=== PATIENT | female | born 1980 | race Caucasian/White ===

== ENCOUNTER 2016-09-15 15:52 | Emergency (ER) | payer MEDICARE, MEDICAID ==
[~2016-09-15] VITALS: Ht 165.1 cm; Wt 127.0 kg
[~2016-09-15 15:52] MED LIST: ABILIFY2 MG PO; AMOXIL500 MG PO; BACTRIM DS 8001 TAB PO; BUSPAR10 MG PO; CIPRO 500MG TA500 MG PO; CORTISPORIN (GE10 M1 OT; DARVOCET-N 1001 EACH PO; FLEXERIL10 MG PO; HYDROCODONE1 TABLET PO; HYDROXYCHLOROQ200 MG PO; IBU-8800 MG PO; IBUPROFEN400 MG PO; KEFLEX 500MG.500 MG PO; LEXAPRO 10 MG T10 MG PO; LORTAB 5/500 501 TAB PO; MEDROL 4MG. DOSE4 MG PO; MOTRIN600 MG PO; NAPROSYN 500MG500 MG PO; NORCO 325 MG-101 TAB PO; PAXIL20 MG PO; PREDNISONE50 MG PO; RANITIDINE 7575 MG PO; SEPTRA DS 800 M1 TAB PO; TEGRETOL 200MG200 MG PO; TEGRETOL200 MG PO; TESSALON PERLE100 MG PO; VIBRAMYCIN 100100 MG PO; ZANAFLEX 2MG TAB2 MG PO; ZOLOFT100 MG PO
[2016-09-15] MEDS ORDERED: DEPAKOTE 500MG500 MG PO (16:03)
[2016-09-15] MEDS ORDERED: BUSPIRONE HCL15 MG PO (16:04)
[2016-09-15] MEDS ORDERED: ROBAXIN 500 MG500 MG PO (16:04)
[2016-09-15] MEDS ORDERED: TRAMADOL 50MG T50 MG PO (16:05)
[2016-09-15] MEDS ORDERED: TOPAMAX100 MG PO (16:05)
[2016-09-15] MEDS ORDERED: MIGRELIEF CAPL1 EACH PO (16:06)
--- NOTE | 2016-09-15 16:08 | Emergency Room Report ---
History of Present Illness Time Seen by [id number] Presenting Problem in Triage Pt arrived:Walked Presenting Problem:PT HAVING PAIN IN STOMACH ALOT OF CRAMPING, PT STATES SHE HAS HAD DIARRHEA FOR SEVERAL DAYS. PT DENIES ANY VOMITING. PT DIZZY AND HEADACHE. PT STATES SHE HASNT SLEPT WELL FOR SEVERAL DAYS, PT STATES SHE HAS BEEN ON LIQUIDS FOR THE LAST FEW DAYS. Onset of symptoms date/time:/ or onset unknown for:MEDICAL HX UNKNOWN Treatment Prior to Arrival: [employer] Provided by: Sepsis Risk Assessment: Temp: 98.2 B/P: 124/82 MAP: 96 Pulse: 103 Resp: 18 Recent fever? N Clinical Suspician of Infection? N Mental Status: 1 - Regular (Normal Baseline) Sepsis Risk:Low Sepsis Risk Have you (or family members/close friends) recently traveled outside the [place]? N If Yes, where/when: Have you had exposure to infectious disease within the past month? N TB? Other? Specify: Source patient, RN notes reviewed Exam Limitations no limitations Comment Stomach pain and cramping and diarrhea for several days. Has not been on any antibiotics and not running any fever but having a watery diarrhea. Complains of some dizziness and headaches but says she has not slept well for several days and has been taking in mostly liquids for the past few days as well. No UT symptoms. She is afebrile, mildly tachycardic with LQ=820 and mid abd tenderness but no rebound or guarding Cardiac Chest Pain Chest pain indicative of cardiac No ALLERGIES Coded Allergies: No Known Drug Allergies (07/24/15) Home Medications Reported Medications Divalproex Sodium (Depakote) 500 MG PO BID Buspirone Hcl 15 MG PO BID Methocarbamol (Robaxin 500MG) 500 MG PO TID Topiramate (Topamax) 50 MG PO BID Tramadol Hcl (Tramadol 50MG) 50 MG PO TID B2/Mag Cit & Ox/Feverfew (Migrelief Caplet) 1 EACH PO DAILY Tizanidine Hydrochloride (Zanaflex 2MG Tab) 2 MG PO TID HYDROCODONE/ACETAMINOPHEN ([place] 10-325 Tablet) 1 TAB PO TID Escitalopram Oxalate (Lexapro 10MG) 10 MG PO DAILY Aripiprazole (Abilify) 2 MG PO DAILY Cyclobenzaprine Hcl (Flexeril) 5 MG PO PRN PRN SPASMS History Medical History General CAD? No Angina: No [place]: No Hypertension? No Hyperlipidemia? No CHF? No DVT? No PE? No COPD? No Asthma? No Anemia? No GERD? Yes Gastric ulcers? No GI Bleed? No Hernia? No Thyroid Problems? No Hypothyroidism? No CVA? No Seizures? Yes Diabetes? No End Stage Renal Disease? No UTI? No Stones? Yes GB Disease: No Nephritic Syndrome? No Asplenia? No Hepatitis? No Sickle Cell Disease? No Arthritis? Yes Cataracts? No Glaucoma? No MRSA? No TB? No Cancer? No Immunization Hx DT/Tetanus 1-4 Years Ago Flu NEVER Pneumonia NEVER Surgical Hx Previous Surgery?Y KIDNEY REMOVED LEFT NEPHRECTOMY WEIGH BOSS Hx LMP 1 Month Ago Family History Family Hx Diabetes Yes CAD Yes Hypertension Yes Hyperlipidemia Yes Cancer No TB No Social History Smoking Hx Smoker: Current Every Day Smoker Tobacco: Yes Type Cigarettes Packs/day < 1 Pack Alcohol Alcohol: No Review of Systems All Other Systems Reviewed and Negative Constitutional see HPI Gastrointestinal see HPI Psychiatric/Neurological see HPI Physical Exam Vital Signs Vital Signs Date Time Temp Pulse Resp B/P Pulse O2 O2 Flow FiO2 Ox Delivery Rate 09/15 1842 97.9 88 18 110/72 96 09/15 1739 97.7 95 18 100/59 96 09/15 1655 99.1 91 18 94/44 96 09/15 1555 98.2 103 18 124/82 97 General Appearance no apparent distress, obese Respiratory Status No: respiratory distress. Lung Sounds bilateral: normal breath sounds. 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 No Results/Orders Laboratory Tests 09/15/16 1610: Urine Color YELLOW, Urine Appearance CLEAR, Urine pH 6.0, Ur Specific [place] 1.025, Urine Protein NEGATIVE, Urine Ketones NEGATIVE, Urine Blood NEGATIVE, Urine Nitrate NEGATIVE, Urine Bilirubin NEGATIVE, Urine Urobilinogen 1.0, Ur Leukocyte Esterase TRACE H, Urine WBC OCC, Ur Squamous Epith Cells OCC, Urine Bacteria TRACE, Urine Glucose NEGATIVE 09/15/16 1602: Sodium 138, Potassium 4.6, Chloride 104, Carbon Dioxide 25, BUN 15, Creatinine 0.9, Estimated Creat Clear 173, Estimated GFR (MDRD) 71, Glucose 98, Calcium 8.6 , Total Bilirubin 0.2, AST 8 L, ALT 18, Alkaline Phosphatase 146 H, Total Protein 7.7, Albumin 3.0 L, Globulin 4.7 H, Albumin/Globulin Ratio 0.6 L, Amylase 29, Lipase 114, WBC 11.7 H, RBC 4.60, Hgb 12.8, Hct 38.9, MCV 84.5, RDW 16.2, Plt Count 430 H, MPV 5.2 L, Gran % 58.6, Gran # 6.8, Lymphocytes % 31.5, Monocytes % 7.6, Eosinophils % 1.7, Basophils % 0.5, Lymphocytes # 3.7, Monocytes # 0.9, Eosinophils # 0.2, Basophils # 0.1, PUBS MCHC 32.6, MCH 27.6 Current Medication Orders Sig/Migue Start time Last Medication Dose Route Stop Time Status Admin Ondansetron HCl 4 MG ONCE ONE 09/15 1645 DC 09/15 IV 09/15 1646 1639 Sodium Chloride 1,000 ML .Q1H1M 09/15 1645 DC 09/15 IV 09/15 1745 1640 Sodium Chloride 10 ML PRN PRN 09/15 1645 AC IV 09/16 1635 Sodium Chloride 1,000 ML .Q4H 09/15 1645 AC 09/15 IV 09/15 2044 1640 Sodium Chloride 10 ML PRN PRN 09/15 1645 AC IV 09/16 1635 Sodium Chloride 2,000 ML .STK-MED ONE 09/15 1638 DC IV Ondansetron HCl 0 .STK-MED ONE 09/15 1637 DC .ROUTE Orders Procedure Date/time Status ABD ACUTE(MUL VIEWS) 09/15 1636 Active DIARRHEA PANEL, PCR 09/15 1636 Active URINALYSIS/COMPLETE 09/15 1608 Complete URINE 09/15 1608 Complete LIPASE 09/15 1608 Complete CBC WITH AUTO DIFF 09/15 1608 Complete CHEM 12 PROFILE 09/15 1608 Complete AMYLASE 09/15 1608 Complete XRAY/CT/US XRAY/CT/US XRAY abdomen XR interpretation by reviewed by me Xray Results normal/NAD Departure Departure Time of Disposition 1902 Disposition DC Home or Self Care(routine) Clinical Impression Primary Impression: Diarrhea Qualifiers: Diarrhea type: unspecified type Qualified Code: R19.7 - Diarrhea, unspecified Condition STABLE Referrals ANDREI WARREN (Family): 2 Days-Call Office Patient Instructions Diarrhea (Alternative Therapy), Diarrhea (Alternative Therapy), Loperamide Additional Instructions use medicine as directed and stay on clear liquids only for next couple of days. Return to the ED with any worsening symptoms. Discharge Counseling Counseled pt/family regarding diagnosis, test results, medications/RX, home care, follow up needs Prescriptions Current Visit Scripts Loperamide HCl (Imodium A-D) 2 MG PO DIRECTED #40 CAPSULE take 2 pills after next BM and 1 after each unformed BM but no more than 6 in 1 day ED Critical Care Critical Care No If Critical Care minutes are documented, the time involved in the performance of seperately reportable procedures was not counted toward critical care time documented. I directly delivered medical care to this critically ill and/or injured patient. Timely evaluation and treatment was necessary to address the significant organ system(s) dysfunction present in this patient. at 1904
--- NOTE | 2016-09-15 16:08 | Emergency Room Report ---
History of Present Illness Time Seen by [id number] Presenting Problem in Triage Pt arrived:Walked Presenting Problem:PT HAVING PAIN IN STOMACH ALOT OF CRAMPING, PT STATES SHE HAS HAD DIARRHEA FOR SEVERAL DAYS. PT DENIES ANY VOMITING. PT DIZZY AND HEADACHE. PT STATES SHE HASNT SLEPT WELL FOR SEVERAL DAYS, PT STATES SHE HAS BEEN ON LIQUIDS FOR THE LAST FEW DAYS. Onset of symptoms date/time:/ or onset unknown for:MEDICAL HX UNKNOWN Treatment Prior to Arrival: [employer] Provided by: Sepsis Risk Assessment: Temp: 98.2 B/P: 124/82 MAP: 96 Pulse: 103 Resp: 18 Recent fever? N Clinical Suspician of Infection? N Mental Status: 1 - Regular (Normal Baseline) Sepsis Risk:Low Sepsis Risk Have you (or family members/close friends) recently traveled outside the [place]? N If Yes, where/when: Have you had exposure to infectious disease within the past month? N TB? Other? Specify: Source patient, RN notes reviewed Exam Limitations no limitations Comment Stomach pain and cramping and diarrhea for several days. Has not been on any antibiotics and not running any fever but having a watery diarrhea. Complains of some dizziness and headaches but says she has not slept well for several days and has been taking in mostly liquids for the past few days as well. No UT symptoms. She is afebrile, mildly tachycardic with EO=458 and mid abd tenderness but no rebound or guarding Cardiac Chest Pain Chest pain indicative of cardiac No ALLERGIES Coded Allergies: No Known Drug Allergies (07/24/15) Home Medications Reported Medications Divalproex Sodium (Depakote) 500 MG PO BID Buspirone Hcl 15 MG PO BID Methocarbamol (Robaxin 500MG) 500 MG PO TID Topiramate (Topamax) 50 MG PO BID Tramadol Hcl (Tramadol 50MG) 50 MG PO TID B2/Mag Cit & Ox/Feverfew (Migrelief Caplet) 1 EACH PO DAILY Tizanidine Hydrochloride (Zanaflex 2MG Tab) 2 MG PO TID HYDROCODONE/ACETAMINOPHEN ([place] 10-325 Tablet) 1 TAB PO TID Escitalopram Oxalate (Lexapro 10MG) 10 MG PO DAILY Aripiprazole (Abilify) 2 MG PO DAILY Cyclobenzaprine Hcl (Flexeril) 5 MG PO PRN PRN SPASMS History Medical History General CAD? No Angina: No [place]: No Hypertension? No Hyperlipidemia? No CHF? No DVT? No PE? No COPD? No Asthma? No Anemia? No GERD? Yes Gastric ulcers? No GI Bleed? No Hernia? No Thyroid Problems? No Hypothyroidism? No CVA? No Seizures? Yes Diabetes? No End Stage Renal Disease? No UTI? No Stones? Yes GB Disease: No Nephritic Syndrome? No Asplenia? No Hepatitis? No Sickle Cell Disease? No Arthritis? Yes Cataracts? No Glaucoma? No MRSA? No TB? No Cancer? 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 Family History Family Hx Diabetes Yes CAD Yes Hypertension Yes Hyperlipidemia Yes Cancer No TB No Social History Smoking Hx Smoker: Current Every Day Smoker Tobacco: Yes Type Cigarettes Packs/day < 1 Pack Alcohol Alcohol: No Review of Systems All Other Systems Reviewed and Negative Constitutional see HPI Gastrointestinal see HPI Psychiatric/Neurological see HPI Physical Exam Vital Signs Vital Signs Date Time Temp Pulse Resp B/P Pulse O2 O2 Flow FiO2 Ox Delivery Rate 09/15 1842 97.9 88 18 110/72 96 09/15 1739 97.7 95 18 100/59 96 09/15 1655 99.1 91 18 94/44 96 09/15 1555 98.2 103 18 124/82 97 General Appearance no apparent distress, obese Respiratory Status No: respiratory distress. Lung Sounds bilateral: normal breath sounds. 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 No Results/Orders Laboratory Tests 09/15/16 1610: Urine Color YELLOW, Urine Appearance CLEAR, Urine pH 6.0, Ur Specific [place] 1.025, Urine Protein NEGATIVE, Urine Ketones NEGATIVE, Urine Blood NEGATIVE, Urine Nitrate NEGATIVE, Urine Bilirubin NEGATIVE, Urine Urobilinogen 1.0, Ur Leukocyte Esterase TRACE H, Urine WBC OCC, Ur Squamous Epith Cells OCC, Urine Bacteria TRACE, Urine Glucose NEGATIVE 09/15/16 1602: Sodium 138, Potassium 4.6, Chloride 104, Carbon Dioxide 25, BUN 15, Creatinine 0.9, Estimated Creat Clear 173, Estimated GFR (MDRD) 71, Glucose 98, Calcium 8.6 , Total Bilirubin 0.2, AST 8 L, ALT 18, Alkaline Phosphatase 146 H, Total Protein 7.7, Albumin 3.0 L, Globulin 4.7 H, Albumin/Globulin Ratio 0.6 L, Amylase 29, Lipase 114, WBC 11.7 H, RBC 4.60, Hgb 12.8, Hct 38.9, MCV 84.5, RDW 16.2, Plt Count 430 H, MPV 5.2 L, Gran % 58.6, Gran # 6.8, Lymphocytes % 31.5, Monocytes % 7.6, Eosinophils % 1.7, Basophils % 0.5, Lymphocytes # 3.7, Monocytes # 0.9, Eosinophils # 0.2, Basophils # 0.1, PUBS MCHC 32.6, MCH 27.6 Current Medication Orders Sig/Migue Start time Last Medication Dose Route Stop Time Status Admin Ondansetron HCl 4 MG ONCE ONE 09/15 1645 DC 09/15 IV 09/15 1646 1639 Sodium Chloride 1,000 ML .Q1H1M 09/15 1645 DC 09/15 IV 09/15 1745 1640 Sodium Chloride 10 ML PRN PRN 09/15 1645 AC IV 09/16 1635 Sodium Chloride 1,000 ML .Q4H 09/15 1645 AC 09/15 IV 09/15 2044 1640 Sodium Chloride 10 ML PRN PRN 09/15 1645 AC IV 09/16 1635 Sodium Chloride 2,000 ML .STK-MED ONE 09/15 1638 DC IV Ondansetron HCl 0 .STK-MED ONE 09/15 1637 DC .ROUTE Orders Procedure Date/time Status ABD ACUTE(MUL VIEWS) 09/15 1636 Active DIARRHEA PANEL, PCR 09/15 1636 Active URINALYSIS/COMPLETE 09/15 1608 Complete URINE 09/15 1608 Complete LIPASE 09/15 1608 Complete CBC WITH AUTO DIFF 09/15 1608 Complete CHEM 12 PROFILE 09/15 1608 Complete AMYLASE 09/15 1608 Complete XRAY/CT/US XRAY/CT/US XRAY abdomen XR interpretation by reviewed by me Xray Results normal/NAD Departure Departure Time of Disposition 1902 Disposition DC Home or Self Care(routine) Clinical Impression Primary Impression: Diarrhea Qualifiers: Diarrhea type: unspecified type Qualified Code: R19.7 - Diarrhea, unspecified Condition STABLE Referrals ANDREI WARREN (Family): 2 Days-Call Office Patient Instructions Diarrhea (Alternative Therapy), Diarrhea (Alternative Therapy), Loperamide Additional Instructions use medicine as directed and stay on clear liquids only for next couple of days. Return to the ED with any worsening symptoms. Discharge Counseling Counseled pt/family regarding diagnosis, test results, medications/RX, home care, follow up needs Prescriptions Current Visit Scripts Loperamide HCl (Imodium A-D) 2 MG PO DIRECTED #40 CAPSULE take 2 pills after next BM and 1 after each unformed BM but no more than 6 in 1 day ED Critical Care Critical Care No If Critical Care minutes are documented, the time involved in the performance of seperately reportable procedures was not counted toward critical care time documented. I directly delivered medical care to this critically ill and/or injured patient. Timely evaluation and treatment was necessary to address the significant organ system(s) dysfunction present in this patient. at 1904
[2016-09-15 16:19] LABS: URINE BILIRUBIN - DIPSTICK NEGATIVE (NEG); URINE BLOOD NEGATIVE (NEG)
[2016-09-15 16:20] LABS: HEMOGLOBIN 12.8 g/dL (12.2-16.2); LYMPH # 3.7 K/mm3 (0.7-4.5); LYMPH % 31.5 % (10-50.0)
[2016-09-15 16:26] LABS: URINE SQUAMOUS CELLS OCC #/hpf (0-5)
[2016-09-15] MEDS ORDERED: IMODIUM A-D2 M3 PO (19:04)
[2016-09-15 19:05] VITALS: BP 110/72
--- NOTE | 2016-09-16 05:56 | RADIOLOGY REPORT PS360 ---
ABD ACUTE(MUL VIEWS) HISTORY: abdominal pain ORDERING PHYSICIAN: Edilberto Kent MD PATIENT AGE: 35 years COMPARISON: None FINDINGS: Frontal view of the chest shows atelectatic or fibrotic changes in the left lung base. There is mild hyperinflation with attenuation of peripheral pulmonary vessels and coarsening of the bronchovascular markings consistent with smoker's lung disease. Upright and supine views of the abdomen show nonspecific bowel gas. No obstruction or free air. Surgical clip is present in the left lower quadrant. No acute bony anomalies or urolithiasis. IMPRESSION: 1. Left lower lobe atelectasis or fibrosis with peribronchial inflammatory change in hyperinflation. 2. Nonspecific nonacute findings of the abdomen
--- OUTSIDE RECORDS SUMMARY | 2016-09-16 06:55 | External Medical Summary Rpt ---
Author Author , Organization [employer] Address Unknown Phone Unavailable Care Team Providers Care Au Pair Name Role Phone NABIL KAUR MD, PSC, Unavailable Unavailable NABIL KAUR MD, PSC ATKINS TRA, ATKINS Unavailable Unavailable TRA ATKINS TRA, ATKINS Unavailable Unavailable TRA NAMITA KRI, Unavailable Unavailable NAMITA KRI BRACKEN MEAGAN, BRACKEN Unavailable Unavailable MEAGAN SARA III SHALA, Unavailable Unavailable SARA III SHALA ROBERT, ROBERT Unavailable Unavailable ROBERT, ROBERT Unavailable Unavailable WARREN, WARREN Unavailable Unavailable WARREN NATASHA, WARREN NATASHA Unavailable Unavailable WARREN NATASHA, WARREN NATASHA Unavailable Unavailable BUX ANJ, BUX ANJ Unavailable Unavailable EDIL DAYAN, EDIL Unavailable Unavailable DAYAN [facility], Unavailable Unavailable [facility] [place] [facility], Unavailable Unavailable [facility] MARCE BENNY, Unavailable Unavailable MARCE BENNY DOERGER KIR, DOERGER Unavailable Unavailable KIR DUFF MEAGAN, DUFF MEAGAN Unavailable Unavailable [facility] [place] [facility] [place] EBACHER MAT, EBACHER Unavailable Unavailable MAT JENSEN THO, Unavailable Unavailable JENSEN THO BLACKMON NALLELY, Unavailable Unavailable BLACKMON NALLELY [facility], Unavailable Unavailable [facility], Unavailable Unavailable [facility] DARLING NOVOA Unavailable Unavailable DARLING MENESES Unavailable Unavailable EUGENIA GAUTHIER ANA, GAUTHIER Unavailable Unavailable ANA [facility] Un[facility], [facility] HOBLITZEL DANYELLE, Unavailable Unavailable HOBLITZEL DANYELLE [facility] Unavailable Unavailable [facility], [facility] Unavailable Unavailable IMAGING [facility], [facility] ELISEO CRI, ELISEO CRI Unavailable Unavailable MADKASIA KAUR MD, CLARI Unavailable Unavailable BUX MD DAIGLE, DAIGLE Unavailable Unavailable ELLIOTT BYR, ELLIOTT BYR Unavailable Unavailable JAI RON, JAI Unavailable Unavailable [facility] Unavailable [facility]available [facility], [facility] Unavailable Unavailable [facility], [facility] Unavailable Unavailable OF [facility], [facility] RISON ALL, RISON ALL Unavailable Unavailable SALIM DAINA, SALIM DAINA Unavailable Unavailable [facility], Unavailable Unavailable [facility], Unavailable Unavailable [facility] Unavailable Unavailable PHYSICI[facility], [facility] [place] [facility], Unavailable Unavailable [facility] Unavailable Unavailable DEPT MICHELLE, [facility] MICHELLE WEHRMAN III DAYAN, Unavailable Unavailable WEHRMAN III DAYAN WEHRMAN III DAYAN, Unavailable Unavailable WEHRMAN III DAYAN WILLOBY, WILLOBY Unavailable Unavailable WILLOBY NALLELY, WILLOBY Unavailable Unavailable NALLELY Purpose Continuity of Care Document - 04-04-2009 through 2016 Problems Code Diagnosis DOS Provider Status [id number] EPILEPSY 08-01-2016 . [facility] NOT [facility] INTRACT W/O EULA STATUS EPILEPTICUS H539 UNSPECIFIED 08-01-2016 [facility] VISUAL G[facility] DISTURBANCE EULA R51 HEADACHE 08-01-2016 . [facility] EULA R5383 OTHER 07-25-2016 [facility] [id number] OTH 07-09-2016 [facility] NOT INTRACT PHYSICIANS W/O STATUS MIGRAINOSUS M542 CERVICALGIA 07-09-2016 [facility] R110 NAUSEA 07-04-2016 [facility] R71290 EPISODIC 06-24-2016 TENSION-TYP [facility] E HEADACHE PHYSICIANS NOT INTRACTABLE L570 ACTINIC 03-19-2016 ROBERT KERATOSIS L732 HIDRADENITI 03-19-2016 ROBERT S SUPPURATIVA L930 DISCOID 03-19-2016 ROBERT LUPUS ERYTHEMATOS US Z202 CONTACT 02-08-2016 [facility] WITH DISTRICT EXPOSURE [facility] DEPT INFECT MICHELLE SEXUAL MODE TRANSMS [id number] SPONDYLOSIS 09-19-2015 NABIL KAUR, W/O , PSC MYELOPATH/R ADICULOPATH Y LUMB RGN M5116 INTERVERTEB 09-19-2015 YOLANDA LYON MD, PSC D/O W/RADICULOP ATHY LUMB RGN X66897 OTHER LONG 09-19-2015 [facility] CURRENT INC DRUG THERAPY H02504 OTHER 08-03-2015 [facility] PSC TENOSYNOVIT IS RIGHT SHOULDER M461 SACROILIITI 07-24-2015 Jaspal LYON MD, PSC ELSEWHERE CLASSIFIED M545 LOW BACK 07-24-2015 [facility]IN [facility] M791 MYALGIA 07-24-2015 NABIL KAUR MD, PSC M7581 OTHER 07-12-2015 [facility]ES[facility] SHOULDER E44666 PAIN IN 06-14-2015 ST. RIGHT [facility] SHOULDER EULA [id number] UNS INJURY 06-02-2015 ST. 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 7244 THORACIC/ASHLEY 10-24-2014 CLARI MAROSARONI BETTENCOURT NEURITIS/RA DICULITIS UNSPEC 77141 DISPLCMT 07-26-2014 HARMEET Morrison LUMBAR [place] INTERVERT [facility] DISC W/O MYELOPATHY 7213 LUMBOSACRAL 06-27-2014 HARMEET HASTINGS SPONDYLOSIS [facility] WITHOUT MYELOPATHY 68205 MORBID 04-19-2014 HARMEET HASTINGS [facility] V5869 LONG-TERM 04-19-2014 HARMEET Morrison (CURRENT) HASTINGS USE OF [facility] OTHER MEDICATIONS 7238 OTHER 01-21-2014 HARMEET SHETTY [facility]STINGS AFFECTING [facility] CERVICAL REGION 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 OF HAND [facility] EULA 65095 CONTUSION 11-14-2011 ST. OF WRIST [facility] E[facility] 62670 BLISTR 11-14-2011 ST W/EPID LOSS [facility] CTR UNSPEC SITE HAND 09648 BLISTERS 11-14-2011 ST. W/EPIDERMAL [facility] LOSS DUE EULA TO BURN EKG MONITOR TECH 98645 BURN <10% 11-14-2011 ST. BODY SURF [facility] W/3RD DEG EULA BURN<10%/UN S AMT 9492 BLISTERS 11-14-2011 ST W/EPIDERMAL [facility] LOSS DUE MED CTR BURN UNSPEC SITE 9599 INJURY 11-14-2011 RAD[facility]OLOGY OTHER AND ASSOCIATES UNSPECIFIED OF NOTH UNSPECIFIED SITE V065 NEED 11-14-2011 ST. PROPHYLACTI [facility] C EULA VACCINATION W/TETANUS-D [facility] 5990 URINARY 11-01-2011 WILLOBY NALLELY TRACT INFECTION SITE NOT SPECIFIED 6235 LEUKORRHEA 11-01-2011 WILLOBY NALLELY NOT SPECIFIED INFECTIVE 85286 SPONDYLOSIS 11-01-2011 WILLOBY NALLELY UNSPEC SITE W/O MENTION MYELOPATHY 496 CHRONIC 09-05-2011 WILLOBY NALLELY AIRWAY OBSTRUCTION NEC 49940 PAIN IN 07-16-2011 ST. JOINT, [facility] LOWER LEG EULA 7245 UNSPECIFIED 06-19-2011 BRIANA KAUR BACKACHE 9597 INJURY 06-19-2011 BRIANA KAUR OTHER&UNSPE CIFIED KNEE LEG ANKLE&FOOT 30762 CONTUSION 06-15-2011 ST OF KNEE [facility] 7231 CERVICALGIA 05-30-2011 WARREN NATASHA 9154 FINGER 05-30-2011 BRIANA KAUR INSECT BITE NONVENOMOUS W/O MENTION INF 4739 UNSPECIFIED 04-22-2011 WILLOBY NALLELY SINUSITIS 490 BRONCHITIS 04-22-2011 WILLOBY NALLELY NOT SPECIFIED ACUTE OR CHRONIC 52278 CHRON 03-21-2011 [facility] TIS W/O LES INC RENL MEDULRY NECROS 78640 ACUT 03-21-2011 [facility] TIS W/O LES INC RENAL MEDULRY NECROS 54177 UNSPECIFIED 03-21-2011 [facility] TIS 5849 ACUTE 04-10-2010 [facility] FAILURE UNSPECIFIED 7880 RENAL COLIC 01-06-2010 [facility] 7840 HEADACHE 12-06-2009 [facility] 7804 DIZZINESS 09-30-2009 [facility] 48119 UNSPECIFIED 08-24-2009 [facility]ICAL ANKLE [facility] SPRAIN AND STRAIN 9239 CONTUSION 04-11-2009 [facility] UNSPECIFIED IMAGING ASS PART OF UPPER LIMB 9593 INJURY 04-04-2009 [facility] [place] OTHER&UNSPE RADIOLOGY CIFIED [facility]&WRI ST Allergies, Adverse Reactions, Alerts Type Allergy to substance Adverse Reaction to Substance Substance Reaction Severity INGREDIENT: NO KNOWN Unknown Mild - NO KNOWN DRUG ALLERGY Medications Na ND Rx Da Fi Fi Am Da Di Ph RX Ph St me C No te ll ll ou ys ag ar # ys at rm s nt no ma ic us Or Da si cy ia de te s n re d EN 60 09 10 0 12 3 EA 24 RU Ac DO 95 -3 -[address] 33 SH ti CE 10 0- 3- 00 SI 99 ve T 70 20 20 DE NE 7. 07 11 11 IL 5- 0 PH C 32 AR 5 MA MG CY TA OF BL ET CY NT HI AN A EN 60 09 09 0 18 5 EA 24 RU Ac DO 95 -2 -[address] 28 SH ti CE 10 8- 8 SI 79 ve T 70 20 20 DE NE 7. 07 11 11 IL 5- 0 PH C 32 AR 5 MA MG CY TA OF BL ET CY NT HI AN A AM 00 09 09 0 30 10 EA 24 RU Ac OX 78 -2 -[address] 28 SH ti IC 12 8- 8 SI 80 ve IL 61 20 20 DE NE LI 30 11 11 IL N 5 PH C 50 AR 0 MA MG CY CA OF PS UL CY E NT HI AN A Immunization Name Date Route CVX Reacti Commen Provid Is Given on t er Refuse d SAMMIU [facility] S & 2011 ELIZAB DIPHTH ETH ERIA EULA TOXOID S ADSORB ED 7/>YR IM Vital Signs 03-22-2013 13:42 Name Value Interpretat Reference Comment ion Range BP 75 mm[Hg] Diastolic BP Systolic 99 mm[Hg] Heart 86 /min Rate/Pulse O2% 99 % Respiratory 20 /min Rate 03-22-2013 13:14 Name Value Interpretat Reference Comment ion Range BP 76 mm[Hg] Diastolic BP Systolic 116 mm[Hg] Heart 83 /min Rate/Pulse O2% 98 % Respiratory 20 /min Rate Results Labs Lab Lab Date Result Refere Interp Status Commen Order Detail nces retati t Range on CHLAMYDIA AND GONORRHEA TESTING (02-08-2016 15:00) Chlamyd NEGATIV complet ia 016 E ed trachom 15:00 atis rRNA [Presen ce] in Unspeci fied specime n by Probe & target amplifi cation method Neisser NEGATIV complet ia 016 E ed gonorrh 15:00 oeae rRNA [Presen ce] in Unspeci fied specime n by Probe & target amplifi cation method Treponema pallidum IgG Ab [Presence] in Serum by Immunoassay (02-08-2016 15:00) Trepone NON-RONNI complet ma 016 CTIVE ed pallidu 15:00 m IgG Ab [Presen ce] in Serum by Immunoa ssay Treponema pallidum IgG Ab [Presence] in Serum by Immunoassay (02-08-2016 15:00) COLLECT AH complet OR 016 ed 15:00 ETHNICI WHITE/N complet TY 016 ON-HISP ed 15:00 PURPOSE DIAGNOS complet OF 016 TIC ed EXAM 15:00 SPECIME BLOOD complet N 016 ed SOURCE 15:00 CHART N/A complet NUMBER 016 ed 15:00 Trepone Pending complet ma 016 ed pallidu 15:00 m IgG Ab [Presen ce] in Serum by Immunoa ssay CHLAMYDIA AND GONORRHEA TESTING (02-08-2016 15:00) COLLECT AH/GENP complet OR 016 ROBE ed 15:00 ETHNICI WHITE, complet TY 016 NON-HIS ed 15:00 PANIC KIT complet EXPIRAT 016 016 ed ION 15:00 DATE SYMPTOM NO complet S 016 ed 15:00 REASON VOLUNTE complet FOR 016 ER/MEDI ed REQUEST 15:00 BERNARDA PROBLEM SPECIME URINE complet N 016 ed SOURCE 15:00 PREGNAN NO complet T 016 ed 15:00 CHART N/A complet NUMBER 016 ed 15:00 Chlamyd Pending complet ia 016 ed trachom 15:00 atis rRNA [Presen ce] in Unspeci fied specime n by Probe & target amplifi cation method Neisser Pending complet ia 016 ed gonorrh 15:00 oeae rRNA [Presen ce] in Unspeci fied specime n by Probe & target amplifi cation method Procedures Procedure DOS Code Location Performer Comment INJ A[address] [facility] GADOBENAT 7 [facility] E EULA EULA DIMEGLUMI NE MULTIHANC E PER ML MRI BRAIN [address] [facility] BRAIN 7 [facility] STEM W/O EULA EULA W/[place] [address] [facility] HEAD/BRAI 7 [facility] N W/O EULA EULA CONTRAST MATERIAL RADEX [address] [facility] SPINE 7 [facility] CERVICAL EULA EULA 4 OR 5 VIEWS THERAPEUT 49747 DAIGLE IC 7 [facility] PROPHYLAC TIC/DX PHYSICIAN INJECTION S SUBQ/IM DESTRUCTI 78491 YESICA ROBERT ON 6 PREMALIGN ANT LESION 1ST SYPHILIS 77500 [facility] DAINA TEST 6 DISTRICT NON-TREPO [facility] DEPT NEMAL MICHELLE ANTIBODY QUAL IADNA 78265 [facility] DAINA NEISSERIA 6 DISTRICT [facility] DEPT GONORRHOE MICHELLE AE AMPLIFIED PROBE TQ IADNA 71135 [facility] CRAIG DAINA CHLAMYDIA 6 [facility] DEPT TRACHOMAT MICHELLE IS AMPLIFIED [facility] G0463 [facility] OUTPATIEN 6 [facility] T CLIN INC INC VISIT ASSESS & MGMT PT DRUG TST G0477 [facility] PRESUMP;C 6 [facility] PBL BEING INC INC READ DC OPT OBV ONLY DRUG TEST G0481 [facility] DEFINITV [address] ID INC INC METH P DAY 8-14 DRUG CL E-STIM G0283 PROFESSIO CROSSFIEL 1/> AREAS 6 [facility] D [facility]O OTH THAN ASSOC WND CARE PSC PART TX PLAN THERAPEUT 86473 PROFESSIO CROSSFIEL IC PX 1/> 6 [facility] AREAS ASSOC EACH 15 PSC MIN EXERCISES THERAPEUT 77643 PROF[facility] CROSSFIEL IC PX 1/> 6 [facility]OC EACH 15 PSC MIN EXERCISES E-STIM G0283 PROFESSIO CROSSFIEL 1/> AREAS 6 [facility] D [facility] OTH THAN ASSOC WND CARE PSC PART TX PLAN E-STIM G0283 PROFESSIO CROSSFIEL 1/> AREAS 6 NAL REHAB D POLO OTH THAN ASSOC WND CARE PSC PART TX PLAN THERAPEUT 59746 PROFESSIO CROSSFIEL IC PX 1/> 6 [facility] D POLO AREAS ASSOC EACH 15 PSC MIN EXERCISES THERAPEUT 57050 PROFESSIO CROSSFIEL IC PX 1/> 6 [facility] AREAS ASSOC EACH 15 PSC MIN EXERCISES E-STIM G0283 PROFESSIO CROSSFIEL 1/> AREAS 6 [facility] D POLO OTH THAN ASSOC WND CARE PSC PART TX PLAN E-STIM G0283 PROFESSIO PROFESSIO 1/> AREAS 6 NAL REHAB NAL REHAB OTH THAN ASSOC ASSOC WND CARE PSC PSC PART TX PLAN THERAPEUT 44918 PROFESSIO PROFESSIO IC PX 1/> 6 NAL RE[facility]AB NAL REHAB AREAS ASSOC ASSOC EACH 15 PSC PSC MIN EXERCISES THERAPEUT 62912 PROFESSIO CROSSFIEL IC PX 1/> 6 [facility] D POLO AREAS ASSOC EACH 15 PSC MIN EXERCISES E-STIM G0283 PROFESSIO CROSSFIEL 1/> AREAS 6 [facility] D POLO OTH THAN ASSOC WND CARE PSC PART TX PLAN HOSPITAL G0463 [facility] OUTPATI[facility] 6 [facility] T CLIN INC INC VISIT ASSESS & MGMT PT THERAPEUT 44504 PROFESSIO CROSSFIEL IC PX 1/> 6 [facility] D POLO AREAS ASSOC EACH 15 PSC MIN EXERCISES E-STIM G0283 PROFESSIO CROSSFIEL 1/> AREAS 6 NAL REHAB D POLO OTH THAN ASSOC WND CARE PSC PART TX PLAN THERAPEUT 10064 PROFESSIO CROSSFIEL IC PX 1/> 6 [facility] D POLO AREAS ASSOC EACH 15 PSC MIN EXERCISES E-STIM G0283 PROFESSIO CROSSFIEL 1/> AREAS 6 NAL REHAB D POLO OTH THAN ASSOC WND CARE PSC PART TX PLAN E-STIM G0283 PROFESSIO CROSSFIEL 1/> AREAS 6 NAL REHAB D POLO OTH THAN ASSOC WND CARE PSC PART TX PLAN THERAPEUT 70555 PROFESSIO CROSSFIEL IC PX 1/> 6 NAL REHAB D POLO AREAS ASSOC EACH 15 PSC MIN EXERCISES THERAPEUT 21212 PROFESSIO CROSSFIEL IC PX 1/> 6 [facility]HAB D POLO AREAS ASSOC EACH 15 PSC MIN EXERCISES E-STIM G0283 PROFESSIO CROSSFIEL 1/> AREAS 6 NAL REHAB D POLO OTH THAN ASSOC WND CARE PSC PART TX PLAN E-STIM G0283 PROFESSIO CROSSFIEL 1/> AREAS 6 NAL REHAB D POLO OTH THAN ASSOC WND CARE PSC PART TX PLAN THERAPEUT 24286 PROFESSIO CROSSFIEL IC PX 1/> 6 [facility]AB D POLO AREAS ASSOC EACH 15 PSC MIN EXERCISES THERAPEUT 73465 PROFESSIO CROSSFIEL IC PX 1/> 6 [facility] REHAB D POLO AREAS ASSOC EACH 15 PSC MIN EXERCISES E-STIM G0283 PROFESSIO CROSSFIEL 1/> AREAS 6 NAL REHAB D POLO OTH THAN ASSOC WND CARE PSC PART TX PLAN E-STIM G0283 PROFESSIO CROSSFIEL 1/> AREAS 6 NAL REHAB D POLO OTH THAN ASSOC WND CARE PSC PART TX PLAN THERAPEUT 40131 PROFESSIO PROFESSIO IC PX 1/> 6 NAL REHAB NAL REHAB AREAS ASSOC ASSOC EACH 15 PSC PSC MIN EXERCISES THERAPEUT 22258 PROFESSIO CROSSFIEL IC PX 1/> 6 [facility] REHAB D POL[facility] AREAS ASSOC EACH 15 PSC MIN EXERCISES PHYSICAL 57180 PROFESSIO CROSSFIEL THERAPY 6 NAL REHAB D POLO EVALUATIO ASSOC N PSC E-STIM G0283 PROFESSIO CROSSFIEL 1/> AREAS 6 [facility]AL REHAB D POLO OTH THAN ASSOC WND CARE PSC PART TX PLAN RADEX [address] SHOULDER 6 [facility] COMPLETE EULA EULA MINIMUM 2 V[place] [address] JT UPPER 6 [facility] EXTREMITY EULA EULA W/O CONTRAST F F [facility] G0463 [facility] OUTPATIEN 6 [facility] T CLIN INC INC VISIT ASSESS & [place] NJX 27773 NABIL ASIF MEAGAN DX/THER 5 MD NATASHA, SBST PSC EPIDURAL/ SUBARACH LUMBAR/SA CRAL LOC Q9966 [facility] 200-299 5 [facility] MG/ML INC INC IODINE [place] IN[place] [address] CLARI KAUR BUX ANJ JOINT 5 ARTHRGRPH Y&/ANES/S TEROID W/DICK DRUG SCR G0434 HARME[facility] GA NOT 4 Prince [facility] CHROMATOG MDPLC MDPLC RAPHIC; ANY NUMBER PT ENC DRUG SCR G0434 HARMEET EBACHER NOT 4 Prince YUEN CHROMATOG MDPLC RAPHIC; ANY NUMBER PT ENC EXCISION 83751 [facility] MALIGNANT 4 TRA TRA LESION F/E/E/N/L 2.1-3.0 CM DRUG SCR G0434 DARLING HASTINGS NOT 4 EUGENIA EUGENIA CHROMATOG RAPHIC; ANY NUMBER PT ENC MRI UPPER 56302 [facility] 3 [facility] EXTREMITY INC INC OTH THAN JT W/O CONTR MATRL RADEX [address] HAND 3 [facility] 3 EULA EULA VIEWS DISKOGRAP 40602 [facility]ST[facility] Y LUMBAR 2 EUGENIA EUGENIA RS&I LOCM Q9967 [facility] 300-399 2 EUGENIA EUGENIA MG/ML IODINE CONCENTRA TION PER ML MODERATE 59309 [facility] SEDATJ 2 EUGENIA EUGENIA SAME PHYS/QHP 5/>YRS INIT 30 MIN RINGERS J7120 [facility]STINGS LACTATE 2 EUGENIA EUGENIA INFUSION UP TO 1000 CC RINGERS J7120 DARLIGN HASTINGS LACTATE 2 EUGENIA EUGENIA INFUSION UP TO 1000 CC MODERATE 18010 [facility] HAST[facility] SEDATJ 2 EUGENIA EUGENIA SAME PHYS/QHP 5/>YRS INIT 30 MIN LOCM Q9967 D[facility] HASTINGS 300-399 2 EUGENIA EUGENIA MG/ML IODINE CONCENTRA TION PER ML DISKOGRAP 06531 [facility]STINGS Y LUMBAR 2 EUGENIA EUGENIA RS&I INJECTION 70428 [facility] PX 2 EUGENIA UEGENIA DISCOGRAP HY EACH LEVEL LUMBAR LOCM Q9967 [facility] HASTINGS 300-399 2 EUGENIA EUGENIA MG/ML IODINE CONCENTRA TION PER ML MODERATE 47010 [facility]ST[facility] SEDATJ 2 EUGENIA EUGENIA SAME PHYS/QHP 5/>YRS INIT 30 MIN NJX 52566 [facility] HASTINGS ANES&/STR 2 EUGENIA EUGENIA D W/IMG TFRML EDRL LMBR/SAC EA LV INJ J0702 [facility] BETAMETHA 2 EUGENIA EUGENIA SONE ACETATE & PHOSPHATE 3 MG INJECTION J3470 [facility] 2 EUGENIA EUGENIA HYALURONI DASE UP TO 150 UNITS RINGERS J7120 [facility] LACTATE 2 EUGENIA EUGENIA INFUSION UP TO 1000 CC INJECTION J1030 [facility] 2 EUGENIA EUGENIA METHYLPRE DNISOLONE ACETATE 40 MG NJX 43735 [facility] HATSINGS ANES&/STR 2 EUGENIA EUGENIA D W/IMG TFRML EDRL LMBR/SAC EA LV TETANUS & [address] [facility] 2 [facility] DIPHTHERI EULA EULA A TOXOIDS ADSORBED 7/>YR IM RADEX 02616 [facility] E[facility]IOTT [facility] HAND 2 MINIMUM 3 ASSOCIATE VIEWS S OF NOTH RADEX 32705 [facility] E[facility]OTT [facility] WRIST 2 COMPLETE ASSOCIATE MINIMUM 3 S OF NOTH VIEWS IM ADM [address] [facility] PRQ ID 2 [facility] SUBQ/IM EULA EULA NJXS 1 VACCINE FLUOR 31822 [facility] RADIOLOGY NEEDLE/CA 2 TH ASSOCIATE ASSOCIATE SPINE/PAR S OF NOTH S OF NOTH ASPINAL DX/THER ADDON INJ J0702 [facility] DOERGER BETAMETHA 2 KIR SONE ASSOCIATE ACETATE & S OF [facility] PHOSPHATE 3 MG MRI [address] [facility] SPINAL 2 [facility] CANAL EULA EULA LUMBAR W/O CONTRAST MATERIAL [place] ANY [address] [facility] JT LOWER 2 [facility] EXTREM EULA EULA W/O CONTRAST MATRL RADIOLOGI 50411 RADIOLOGY SARA Ralph EXAM 2 III SHALA KNEE ASSOCIATE COMPLETE S [place]H 4/[place] [address] [facility] RETROPERI 1 [facility] TONEAL INC INC REAL TIME W/IMAGE COMPLETE URNLS DIP 70437 [facility] CASE 1 [place] [facility] THO STICK/TAB CLINIC LET RGNT PSC AUTO W/O MICROSCOP Y URNLS DIP 11915 [facility] CASE 1 [place] [facility] THO STICK/TAB CLINIC LET RGNT PSC AUTO W/O MICROSCOP Y COLLECTIO 04847 [facility] [place] VENOUS 1 [place] [facility] O BLOOD CLINIC VENIPUNCT PSC URE SBSQ 61745 [facility] 0 Y THO CARE/DAY ASSOCIATE 35 S MINUTES SBSQ 29218 [facility] 0 Y THO CARE/DAY ASSOCIATE 35 S MINUTES SBSQ 51956 NEPHROLOG [facility] 0 Y THO CARE/DAY ASSOCIATE 15 S MINUTES SBSQ 14957 [facility] 0 Y THO CARE/DAY ASSOCIATE 25 S MINUTES SBSQ 42279 [facility] 0 Y THO CARE/DAY ASSOCIATE 15 S MINUTES SBSQ 42472 [facility] 0 Y THO CARE/DAY ASSOCIATE 25 S MINUTES SBSQ 63282 [facility] 0 Y THO CARE/DAY ASSOCIATE 25 S MINUTES HEMODIALY 23548 [facility] 0 Y THO PROCEDURE ASSOCIATE W/ S PHYS/QHP EVALUATIO N SBSQ 00853 [facility] 0 Y THO CARE/DAY ASSOCIATE 15 S MINUTES HEMODIALY 53613 [facility] 0 Y THO PROCEDURE ASSOCIATE W/ S PHYS/QHP EVALUATIO N SBSQ 26602 [facility] 0 Y THO CARE/DAY ASSOCIATE 35 S MINUTES SBSQ 56391 [facility] 0 Y THO CARE/DAY ASS[place] [address] [place] [address] [facility] ABDOMEN 0 MEDICAL RON W/O IMAGING CONTRAST ASS MATERIAL CT PELVIS 20000 [facility] W/O 0 [place]ICAL [place] [address] [place] [facility] HEAD/BRAI 0 MEDICAL BENNY N W/[place] [address] [facility] MAXILLOFA 0 MEDICAL MEDICAL CIAL W/O IMAGING IMAGING CONTRAST ASS ASS MATERIAL 3D 36810 [place] [facility] RENDERING 0 MEDICAL BENNY IMAGING W/INTERP& ASS POSTPROC DIFF WORK STATION 3D 51429 [facility] RENDERING 0 MEDICAL RON W/INTERP IMAGING & [place] [address] [facility] HEAD/BRAI 0 MEDICAL RON N W/O IMAGING CONTRAST ASS MATERIAL RADIOLOGI 74686 [place] [facility] C 0 MEDICAL BENNY EXAMINATI IMAGING ON KNEE 3 ASS VIEWS RADEX 34401 [facility] ANKLE 0 MEDICAL BENNY COMPLETE IMAGING MINIMUM 3 ASS VIEWS RADEX 68873 NICK MAR[facility] ELBOW 9 MEDICAL BENNY COMPLETE IMAGING MINIMUM 3 ASS VIEWS RADEX 52325 [facility] [place] [facility] HAND 9 RADIOLOGY ANA MINIMUM 3 VIEWS RADEX 77591 [facility] [place] [facility] FOREARM 2 9 RADIOLOGY ANA VIEWS RADEX 46927 [facility] [place] [facility] WRIST 9 RADIOLOGY ANA COMPLETE MINIMUM 3 VIEWS Encounters Encounter Start End Date Code Location Performer Type Date CRITICAL ST. ACCESS 7 7 [facility] EULA OFFICE [address] [facility] MELIDAOBY OUTPATIEN 7 7 [place] T VISIT 25 PHYSICIAN MINUTES S OFFICE [address] [facility] OUTPATIEN 7 7 GAB[facility] T VISIT [address] ACCESS 7 7 [facility] ST. ACCESS 7 7 [facility]UL[facility] OFFICE [address]2453 ST DAIGLE OUTPATIEN 7 7 GABBY T VISIT 15 PHYSICIAN MINUTES S OFFICE [address] [facility] W[facility]EN OUTPATIEN 7 7 GABBY T VISIT 15 PHYSICIAN MINUTES S OFFICE 36683 ROBERT ROBERT OUTPATIEN 6 6 T VISIT 25 MINUTES OFFICE 85505 [facility] OUTPATIEN 6 6 [facility] DEPT MINUT[facility] - 6 6 [facility] T OFFICE 02498 NABIL ASIF MEAGAN OUTPATIEN 6 6 MD NATASHA, T VISIT PSC 15 MINUTES OFFICE 32488 NABIL LYON OUTPATIEN 6 6 MD NATASHA, T VISIT PSC 15 MINUTES [facility] - 6 6 [facility] T OFFICE 28429 [facility] 6 6 [facility] DANYELLE T VISIT ORTHOPAED 15 IC CTR MINUTES OFFICE 68825 [facility] OUTPATIEN 6 6 [facility] DANYELLE T NEW 30 ORTHOPAED MINUTES IC CTR [facility]ICAL [facility] ACCESS 6 6 [facility] EULA CRITICAL ST. ACCESS 6 6 [facility] EULA OFFICE 01062 NABIL ASIF MEAGAN OUTPATIEN 6 6 MD NATASHA, T VISIT PSC 15 MINUTES [facility] - 6 6 [facility] T CRITICAL [facility] ACCESS 5 5 [facility] EMERGENCY [address]74 ST. 5 5 [facility] T VISIT LOW/MODER SEVERITY [facility] - 5 5 [facility] T OFFICE 49478 NABIL BUX ANJ OUTPATIEN 5 5 MD NATASHA, T VISIT PSC 10 MINUTES OFFICE 52482 CLARI KAUR BUX ANJ OUTPATIEN 5 5 T NEW 30 MINUTES OFFICE 35547 HARMEET MCMANUSPATIALPHONSE 5 5 Prince HASTINGS EUGENIA T VISIT MDPLC 10 MINUTES OFFICE 79270 HARMEET MCMANUSPATIALPHONSE 5 5 Prince YUEN T VISIT MDPLC 10 MINUTES OFFICE 49397 HARMEET MCMANUSPATIALPHONSE 5 5 Prince HASTINGS NALLELY T VISIT MDPLC 10 MINUTES OFFICE 16450 HARMEET MCMANUSPATIALPHONSE 4 4 Prince HSATINGS MAT T VISIT MDPLC 10 MINUTES INITIAL 77079 [facility] CO PREVENTIV 4 4 [facility] E DEPT DEPT MEDICINE NEW PT AGE 18-39YRS OFFICE 74278 HASTINGS HASTINGS OUTPATIEN 4 4 EUGENIA BELLO T VISIT 15 MINUTES HOSPITAL [facility] - 3 3 [facility] OUTPATIEN INC T CRITICAL [facility] ACCESS 3 3 [facility] EULA Emergency JINA Flores (ER) 3 12:40 3 13:44 [facility] EMERGENCY 91372 BRITTANY FLORES 3 3 [facility] T VISIT MODERATE SEVERITY OFFICE 73169 RISON ALL RISON ALL OUTPATIEN 3 3 T VISIT 10 MINUTES OFFICE 28318 RISON ALL RISON ALL OUTPATIEN 3 3 T VISIT 10 MINUTES OFFICE 06949 NEYMAR BLACKMON OUTPATIEN 2 2 NALLELY NALLELY T NEW [address] ACCESS 2 2 [facility] EMERGENCY [address] [facility] 2 2 GABBY GARETH [facility] T VISIT MODERATE SEVERITY CRITICAL ST. ACCESS 2 2 [facility] EULA OFFICE 39637 BRIANA KAUR OUTPATIEN 2 2 T VISIT [address] [facility] 2 2 GABBY MEAGAN [facility] T VISIT PRACTICE MODERATE SEVERITY HOSPITAL [facility] - 1 1 [facility] OUTPATIEN INC T OFFICE 24016 LIAM GARCIAFROILAN OUTPATIEN 1 1 PETE SILVA THO T VISIT CLINIC 15 PSC MINUTES OFFICE 75385 NEW [facility]IE OUTPATIEN 1 1 PETE JR THO T VISIT CLINIC [address] ACCESS 1 1 [facility] EULA EMERGENCY [address]007 ST. 1 1 GABBY Sherman VISIT LOW/MODER SEVERITY OFFICE 78765 NEPHROLOG EDIL OUTPATIEN 0 0 Y DAYAN Sherman VISIT ASSOCIATE 15 S MINUTES
--- OUTSIDE RECORDS SUMMARY | 2016-09-16 06:55 | External Medical Summary Rpt ---
Author Author , Organization [employer] Address Unknown Phone Unavailable Care Team Providers Care Farm Manager Name Role Phone NABIL KAUR MD, PSC, [...] [facility], Unavailable Unavailable [facility] [place] [facility] Un[facility] [place], Unavailable Unavailable [facility] MARCE BENNY, Unavailable Unavailable MARCE BENNY DOERGER KIR, DOERGER Unavailable Unavailable KIR DUFF MEAGAN, DUFF MEAGAN Unavailable Unavailable [facility] Un[facility] [place]available [place] [place] EBACHER MAT, EBACHER Unavailable Unavailable MAT JENSEN THO, Unavailable Unavailable JENSEN THO BLACKMON NALELLY, Unavailable Unavailable BLACKMON NALLELY [facility], Unavailable Unavailable [facility], Unavailable Unavailable [facility] DARLING NOVOA Unavailable Unavailable DARLING MENESES Unavailable Unavailable EUGENIA GAUTHIER ANA, GAUTHIER Unavailable Unavailable [facility]NA [facility] HOBLITZEL DANYELLE, Unavailable Unavailable HOBLITZEL DANYELLE HARMEET HASTINGS Unavailable Unavailable MDPLC, HAR[facility]ET HASTINGS MDPLC [facility] Unavailable Unavailable IMAGING [facility], [facility] ELISEO CRI, ELISEO CRI Unavailable Unavailable MADKASIA KAUR MD, CLARI Unavailable Unavailable BUX MD DAIGLE, DAIGLE Unavailable Unavailable ELLIOTT BYR, ELLIOTT BYR Unavailable Unavailable JAI RON, JAI Unavailable Unavailable [facility] Unavailable Unavailable [facility], [facility] Unavailable Unavailable [facility]OC [facility], [facility] Unavailable Unavailable [facility], [facility] RISON ALL, RISON ALL Unavailable Unavailable SALIM DAINA, SALIM DAINA Unavailable Unavailable [facility], Unavailable Unavailable [facility], Un[facility] Unavailable [facility] Unavailable Unavailable PHYSICIANS, [facility], Unavailable Unavailable [facility] Unavailable Unavailable DEPT [facility], [facility] WEHRMAN III DAYAN, Unavailable Unavailable WEHRMAN III DAYAN WEHRMAN III DAYAN, Unavailable Unavailable WEHRMAN III DAYAN WILLOBY, WILLOBY Unavailable Unavailable WILLOBY NALLELY, WILLOBY Unavailable Unavailable NALLELY Purpose Continuity of Care Document - 04-04-2009 through 2016 Problems Code Diagnosis DOS Provider Status [id number] EPILEPSY 08-01-2016 . [facility] NOT GABBY INTRACT W/O EULA STATUS EPILEPTICUS H539 UNSPECIFIED 08-01-2016 [facility] VISUAL GABBY DISTURBANCE EULA R51 HEADACHE 08-01-2016 . GABBY EULA R5383 OTHER 07-25-2016 FATIGUE [facility] U78479 OTH 07-09-2016 MIGRAINE GABBY NOT INTRACT PHYSICIANS W/O STATUS MIGRAINOSUS M542 CERVICALGIA 07-09-2016 [facility] R110 NAUSEA 07-04-2016 [facility] P63386 EPISODIC 06-24-2016 TENSION-TYP GABBY E HEADACHE PHYSICIANS NOT INTRACTABLE L570 ACTINIC 03-19-2016 ROBERT KERATOSIS L732 HIDRADENITI 03-19-2016 ROBERT S SUPPURATIVA L930 DISCOID 03-19-2016 ROBERT LUPUS ERYTHEMATOS US Z202 CONTACT 02-08-2016 [facility] WITH DISTRICT EXPOSURE [facility] DEPT INFECT MICHELLE SEXUAL MODE TRANSMS S15154 SPONDYLOSIS 09-19-2015 NABIL KAUR, W/O , PSC MYELOPATH/R ADICULOPATH Y LUMB RGN M5116 INTERVERTEB 09-19-2015 YOLANDA LYON MD, PSC D/O W/RADICULOP ATHY LUMB RGN Q79248 OTHER LONG 09-19-2015 [facility] TERM [facility] CURRENT INC DRUG THERAPY G60610 OTHER 08-03-2015 [facility] SYNOVITIS [facility] PSC TENOSYNOVIT IS RIGHT SHOULDER M461 SACROILIITI 07-24-2015 Jaspal LYON MD, PSC ELSEWHERE CLASSIFIED M545 LOW BACK 07-24-2015 [facility] PAIN [facility] INC M791 MYALGIA 07-24-2015 NABIL KAUR MD, PSC M7581 OTHER 07-12-2015 [facility] SHOULDER H [facility]ES[facility] RIGHT CTR SHOULDER P96677 PAIN IN 06-14-2015 ST. RIGHT [facility]BY SHOULDER EULA U7760IA UNS INJURY 06-02-2015 ST. RT SHOULDER [facility] UPPER ARM EULA INITIAL ENCNTR V59808 PAIN IN 05-23-2015 NABIL KAUR, RIGHT HIP , PSC H65150 PAIN IN 05-23-2015 NABIL KAUR LEFT HIP , PSC J449 CHRONIC 05-17-2015 . OBSTRUCTIVE [facility] PULMONARY E[facility]A DISEASE UNS [id number] STRN UNS 05-17-2015 ST. 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 7244 THORACIC/ASHLEY 10-24-2014 LCARI MAROSARONI BETTENCOURT NEURITIS/RA DICULITIS UNSPEC 89042 DISPLCMT 07-26-2014 HARMEET Morrison LUMBAR DARLING INTERVERT MDPLC DISC W/O MYELOPATHY 7213 LUMBOSACRAL 06-27-2014 HARMEET HASTINGS SPONDYLOSIS MDPLC WITHOUT MYELOPATHY 46045 MORBID 04-19-2014 HARMEET HASTINGS MDPLC V5869 LONG-TERM 04-19-2014 HARMEET Morrison (CURRENT) HASTINGS USE OF MDPLC OTHER MEDICATIONS 7238 OTHER 01-21-2014 HARMEET SHETTY HASTINGS AFFECTING MDPLC CERVICAL REGION 2382 NEOPLASM OF 10-06-2013 [place] TRA UNCERTAIN BEHAVIOR OF SKIN V2502 GENERAL 08-17-2013 [facility] DEPT INITIATION OT CONTRACEPT MEASURES 7295 PAIN IN 04-19-2013 [facility] SOFT [facility] TISSUES OF INC LIMB 41525 SWELLING OF 04-19-2013 [facility] LIMB [facility] INC 9594 INJURY 04-19-2013 [facility] OTHER AND MEM [facility]OS[facility] UNSPECIFIED INC HAND EXCEPT FINGER 87409 SPRAIN AND 03-22-2013 WEHRMAN III STRAIN OF DAYAN UNSPECIFIED SITE OF HAND 01013 CONTUSION 11-14-2011 ST. OF HAND GABBY EULA 23458 CONTUSION 11-14-2011 ST. OF WRIST [facility]BY E[facility] 17113 BLISTR 11-14-2011 ST W/EPID LOSS [facility]UE [facility]URN MED CTR UNSPEC SITE HAND 08442 BLISTERS 11-14-2011 ST. 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 BODY SURF GABBY W/3RD DEG EULA BURN<10%/UN S AMT 9492 BLISTERS 11-14-2011 ST W/EPIDERMAL [facility] LOSS DUE MED CTR BURN UNSPEC SITE 9599 INJURY 11-14-2011 RADIOLOGY OTHER AND ASSOCIATES UNSPECIFIED OF NOTH UNSPECIFIED SITE V065 NEED 11-14-2011 ST. PROPHYLACTI GABBY C EULA VACCINATION W/TETANUS-D [facility] 5990 URINARY 11-01-2011 WILLOBY NALLELY TRACT INFECTION SITE NOT SPECIFIED 6235 LEUKORRHEA 11-01-2011 WILLOBY NALLELY NOT SPECIFIED INFECTIVE 28425 SPONDYLOSIS 11-01-2011 WILLOBY NALLELY UNSPEC SITE W/O MENTION MYELOPATHY 496 CHRONIC 09-05-2011 WILLOBY NALLELY AIRWAY OBSTRUCTION NEC 96504 PAIN IN 07-16-2011 ST. JOINT, GABBY LOWER LEG EULA 7245 UNSPECIFIED 06-19-2011 BRIANA KAUR BACKACHE 9597 INJURY 06-19-2011 BRIANA KAUR OTHER&UNSPE CIFIED KNEE LEG ANKLE&FOOT 41043 CONTUSION 06-15-2011 ST OF KNEE [facility] CTR 7231 CERVICALGIA 05-30-2011 [facility] NATASHA 9154 FINGER 05-30-2011 BRIANA KAUR INSECT BITE NONVENOMOUS W/O MENTION INF 4739 UNSPECIFIED 04-22-2011 WILLOBY NALLELY SINUSITIS 490 BRONCHITIS 04-22-2011 WILLOBY NALLELY NOT SPECIFIED ACUTE OR CHRONIC 70729 CHRON 03-21-2011 [facility] TIS W/O LES INC RENL MEDULRY NECROS 06520 ACUT 03-21-2011 [facility] TIS W/O LES INC RENAL MEDULRY NECROS 08931 UNSPECIFIED 03-21-2011 [facility] TIS 5849 ACUTE 04-10-2010 [facility] FAILURE UNSPECIFIED 7880 RENAL COLIC 01-06-2010 [facility] 7840 HEADACHE 12-06-2009 [facility] 7804 DIZZINESS 09-30-2009 [facility] 01384 UNSPECIFIED 08-24-2009 [place] [facility] ANKLE [facility] SPRAIN AND STRAIN 9239 CONTUSION 04-11-2009 [facility] UNSPECIFIED IMAGING ASS PART OF UPPER LIMB [...] Given on t er Refuse d [facility] S & 2011 ELIZAB DIPHTH ETH ERIA [...] DOS Code Location Performer Comment INJ A9577 [facility] GADOBENAT 7 [facility] E EULA EULA DIMEGLUMI NE MULTIHANC E PER ML MRI BRAIN 77544 [facility] BRAIN 7 [facility] STEM W/O EULA EULA W/[place] [address] [facility] HEAD/BRAI 7 [facility] N W/O EULA EULA CONTRAST MATERIAL RADEX 38767 [facility] SPINE 7 [facility] CERVICAL EULA EULA 4 OR 5 VIEWS THERAPEUT 43655 DAIGLE IC 7 GABBY PROPHYLAC TIC/DX PHYSICIAN INJECTION S SUBQ/IM DESTRUCTI 34997 YESICA ROBERT ON 6 PREMALIGN ANT LESION 1ST SYPHILIS 26032 [facility] SALIM DAINA TEST 6 DISTRICT NON-TREPO [facility] DEPT NEMAL MICHELLE ANTIBODY QUAL IADNA 40705 [facility] SALIM DAINA NEISSERIA 6 DISTRICT [facility] DEPT GONORRHOE MICHELLE AE AMPLIFIED PROBE TQ IADNA 66376 [facility] CRAIG DAINA CHLAMYDIA 6 [facility] DEPT TRACHOMAT MICHELLE IS AMPLIFIED [facility]OSPITAL [...] WND CARE PSC PART TX PLAN THERAPEUT 62639 PROFESSIO CROSSFIEL IC PX 1/> 6 NAL REHAB D POLO AREAS ASSOC EACH 15 PSC MIN EXERCISES THERAPEUT 44617 PROFESSIO CROSSFIEL IC PX 1/> 6 [facility] ASSOC EACH 15 PSC MIN EXERCISES E-STIM G0283 PROFESSIO CROSSFIEL 1/> AREAS 6 NAL REHAB D [facility]O OTH THAN ASSOC WND CARE PSC PART TX PLAN E-STIM G0283 PROFESSIO CROSSFIEL 1/> AREAS 6 NAL REHAB D POLO OTH THAN ASSOC WND CARE PSC PART TX PLAN THERAPEUT 42382 PROFESSIO CROSSFIEL IC PX 1/> 6 NAL REHAB D POLO AREAS ASSOC EACH 15 PSC MIN EXERCISES THERAPEUT 38806 PROFESSIO CROSSFIEL IC PX 1/> 6 NAL REHAB D POLO AREAS ASSOC EACH 15 PSC MIN EXERCISES E-STIM G0283 PROFESSIO CROSSFIEL 1/> AREAS 6 NAL REHAB D POLO OTH THAN ASSOC WND CARE PSC PART TX PLAN E-STIM G0283 PROFESSIO PROFESSIO 1/> AREAS 6 NAL REHAB NAL REHAB OTH THAN ASSOC ASSOC WND CARE PSC PSC PART TX PLAN THERAPEUT 00444 PROFESSIO PROFESSIO IC PX 1/> 6 NAL REHAB NAL REHAB AREAS ASSOC ASSOC EACH 15 PSC PSC MIN EXERCISES THERAPEUT 18088 PROFESSIO CROSSFIEL IC PX 1/> 6 NAL REHAB D POLO AREAS ASSOC EACH 15 PSC MIN EXERCISES E-STIM G0283 PROFESSIO CROSSFIEL 1/> AREAS 6 NAL REHAB D POLO OTH THAN ASSOC WND CARE PSC PART TX PLAN HOSPITAL G0463 [facility] OUTPATIEN 6 [facility] T CLIN INC INC VISIT ASSESS & MGMT PT THERAPEUT 71043 PROFESSIO CROSSFIEL IC PX 1/> 6 NAL REHAB D POLO AREAS ASSOC EACH 15 PSC MIN EXERCISES E-STIM G0283 PROFESSIO CROSSFIEL 1/> AREAS 6 NAL REHAB D POLO OTH THAN ASSOC WND CARE PSC PART TX PLAN THERAPEUT 07780 PROFESSIO CROSSFIEL IC PX 1/> 6 NAL REHAB D POLO AREAS ASSOC EACH 15 PSC MIN EXERCISES E-STIM G0283 PROFESSIO CROSSFIEL 1/> AREAS 6 NAL REHAB D POLO OTH THAN ASSOC WND CARE PSC PART TX PLAN E-STIM G0283 PROFESSIO CROSSFIEL 1/> AREAS 6 NAL REHAB D POLO OTH THAN ASSOC WND CARE PSC PART TX PLAN THERAPEUT 62954 PROFESSIO CROSSFIEL IC PX 1/> 6 NAL REHAB D POLO AREAS ASSOC EACH 15 PSC MIN EXERCISES THERAPEUT 75624 PROFESSIO CROSSFIEL IC PX 1/> 6 NAL REHAB D POLO AREAS ASSOC EACH 15 PSC MIN EXERCISES E-STIM G0283 PROFESSIO CROSSFIEL 1/> AREAS 6 NAL REHAB D POLO OTH THAN ASSOC WND CARE PSC PART TX PLAN E-STIM G0283 PROFESSIO CROSSFIEL 1/> AREAS 6 NAL REHAB D POLO OTH THAN ASSOC WND CARE PSC PART TX PLAN THERAPEUT 17546 PROFESSIO CROSSFIEL IC PX 1/> 6 NAL REHAB D POLO AREAS ASSOC EACH 15 PSC MIN EXERCISES THERAPEUT 46893 PROFESSIO CROSSFIEL IC PX 1/> 6 NAL REHAB D POLO AREAS ASSOC EACH 15 PSC MIN EXERCISES E-STIM G0283 PROFESSIO CROSSFIEL 1/> AREAS 6 NAL REHAB D POLO OTH THAN ASSOC WND CARE PSC PART TX PLAN E-STIM G0283 PROFESSIO CROSSFIEL 1/> AREAS 6 NAL REHAB D POLO OTH THAN ASSOC WND CARE PSC PART TX PLAN THERAPEUT 63763 PROFESSIO PROFESSIO IC PX 1/> 6 NAL REHAB NAL REHAB AREAS ASSOC ASSOC EACH 15 PSC PSC MIN EXERCISES THERAPEUT 91851 PROFESSIO CROSSFIEL IC PX 1/> 6 NAL REHAB D POLO AREAS ASSOC EACH 15 PSC MIN EXERCISES PHYSICAL 74557 PROFESSIO CROSSFIEL THERAPY 6 NAL REHAB D POLO EVALUATIO ASSOC N PSC E-STIM G0283 PROFESSIO CROSSFIEL 1/> AREAS 6 NAL REHAB D POLO OTH THAN ASSOC WND CARE PSC PART TX PLAN RADEX [address] SHOULDER 6 [facility] COMPLETE EULA EULA MINIMUM 2 VIE[place] [address] JT UPPER 6 [facility] EXTREMITY EULA EULA W/O CONTRAST [facility] G0463 [facility] OUTPATIEN 6 [facility]OS[facility] T CLIN INC INC VISIT ASSESS & MGMT PT NJX 43357 NABIL ASIF MEAGAN DX/THER 5 MD NATASHA, SBST PSC EPIDURAL/ SUBARACH LUMBAR/SA CRAL LOC Q9966 [facility] 200-299 5 [facility] MG/ML INC INC IODINE [place] IN[place] [address] CLARI KAUR BUX ANJ JOINT 5 ARTHRGRPH Y&/ANES/S TEROID W/DICK DRUG SCR G0434 HARMEET GA NOT 4 Prince HASTINGS CHROMATOG MDPLC MDPLC RAPHIC; ANY NUMBER PT ENC DRUG SCR G0434 HARMEET EBACHER NOT 4 Prince YUEN CHROMATOG MDPLC RAPHIC; ANY NUMBER PT ENC EXCISION 27829 [facility] MALIG[facility]NT 4 TRA TRA LESION F/E/E/N/L 2.1-3.0 CM DRUG SCR G0434 DARLING HASTINGS NOT 4 EUGENAI EUGENIA CHROMATOG RAPHIC; ANY NUMBER PT ENC MRI UPPER 61476 [facility] 3 [facility] EXTREMITY INC INC OTH THAN JT W/O CONTR MATRL RADEX [address] [facility] 3 [facility] EULA EULA VIEWS DISKOGRAP 26978 D[facility] HASTINGS Y LUMBAR 2 EUGENIA EUGENIA RS&I LOCM Q9967 D[facility] HASTINGS 300-399 2 EUGENIA EUGENIA MG/ML IODINE CONCENTRA TION PER ML MODERATE 30020 [facility] HASTINGS SEDATJ 2 EUGENIA EUGENIA SAME PHYS/QHP 5/>YRS INIT 30 MIN RINGERS J7120 [facility] HASTINGS LACTATE 2 EUGENIA EUGENIA INFUSION UP TO 1000 CC RINGERS J7120 [facility] HASTINGS LACTATE 2 EUGENIA EUGENIA INFUSION UP TO 1000 CC MODERATE 41519 D[facility]L[place] HASTINGS SEDATJ 2 EUGENIA EUGENIA SAME PHYS/QHP 5/>YRS INIT 30 MIN LOCM Q9967 DARLING HASTINGS 300-399 2 EUGENIA EUGENIA MG/ML IODINE CONCENTRA TION PER ML DISKOGRAP 92744 HASTINGS HASTINGS Y LUMBAR 2 EUGENIA EUGENIA RS&I INJECTION 26566 D[facility] AHSTINGS PX 2 EUGENIA EUGENIA DISCOGRAP HY EACH LEVEL LUMBAR LOCM Q9967 DARLING HASTINGS 300-399 2 EUGENIA EUGENIA MG/ML IODINE CONCENTRA TION PER ML MODERATE 00878 DARLING HASTINGS SEDATJ 2 EUGENIA EUGENIA SAME PHYS/QHP 5/>YRS INIT 30 MIN NJX 77137 DARLING HASTINGS ANES&/STR 2 EUGENIA EUGENIA D [...] EUGENIA METHYLPRE DNISOLONE ACETATE 40 MG NJX 07318 D[facility] HASTIGNS ANES&/STR 2 EUGENIA EUGENIA D W/IMG TFRML EDRL LMBR/SAC EA LV TETANUS & 57499 [facility] 2 [facility] DIPHTHERI EULA EULA A TOXOIDS ADSORBED 7/>YR IM RADEX 51313 [facility] ELLIOTT BYR HAND 2 MINIMUM 3 ASSOCIATE VIEWS S OF NOTH RADEX 10152 [facility] ELLIOTT BYR WRIST 2 COMPLETE ASSOCIATE MINIMUM 3 S OF NOTH VIEWS IM ADM 97911 [facility] PRQ ID 2 [facility] SUBQ/IM EULA EULA NJXS 1 VACCINE FLUOR 78092 RADIOLOGY RADIOLOGY NEEDLE/CA 2 TH ASSOCIATE ASSOCIATE SPINE/PAR S OF NOTH S OF NOTH ASPINAL DX/THER ADDON INJ J0702 RADIOLOGY DOERGER BETAMETHA 2 KIR SONE ASSOCIATE ACETATE & S OF [facility] PHOSPHATE 3 MG MRI 09069 [facility] SPINAL 2 [facility] CANAL EULA EULA LUMBAR W/O CONTRAST MATERIAL MRI ANY 13014 [facility] JT LOWER 2 [facility] EXTREM EULA EULA W/O CONTRAST MATRL RADIOLOGI 68834 RADIOLOGY SARA Ralph EXAM 2 III SHALA KNEE ASSOCIATE COMPLETE S [place]H 4/[place] [address] [facility] RETROPERI 1 [facility] TONEAL INC INC REAL TIME W/IMAGE COMPLETE URNLS DIP 57575 [facility] CASE 1 [place] JR THO STICK/TAB CLINIC LET RGNT PSC AUTO W/O MICROSCOP Y URNLS DIP 75970 [facility] CASE 1 [place] JR THO STICK/TAB CLINIC LET RGNT PSC AUTO W/O MICROSCOP Y COLLECTIO 29399 [facility] [place] VENOUS 1 [place] JR O BLOOD CLINIC VENIPUNCT PSC URE SBSQ 41049 [facility] 0 Y THO CARE/DAY ASSOCIATE 35 S MINUTES SBSQ 99062 [facility] 0 Y THO CARE/DAY ASSOCIATE 35 S MINUTES SBSQ 28599 NEPHROLOG [facility] 0 Y THO CARE/DAY ASSOCIATE 15 S MINUTES SBSQ 26978 NEPHROLOG [facility] 0 Y THO CARE/DAY ASSOCIATE 25 S MINUTES SBSQ 67759 NEPHROLOG [facility] 0 Y THO CARE/DAY ASSOCIATE 15 S MINUTES SBSQ 15706 NEPHROLOG [facility] 0 Y THO CARE/DAY ASSOCIATE 25 S MINUTES SBSQ 61319 NEPHROLOG [facility] 0 Y THO CARE/DAY ASSOCIATE 25 S MINUTES HEMODIALY 66263 [facility] 0 Y THO PROCEDURE ASSOCIATE W/ S PHYS/QHP EVALUATIO N SBSQ 78579 NEPHROLOG [facility] 0 Y THO CARE/DAY ASSOCIATE 15 S MINUTES HEMODIALY 91173 [facility] 0 Y THO PROCEDURE ASSOCIATE W/ S PHYS/QHP EVALUATIO N SBSQ 54699 [facility] 0 Y THO CARE/DAY ASSOCIATE 35 S MINUTES SBSQ 55680 NEPHROLOG [facility] 0 Y THO CARE/DAY ASSOCI[place] [address] [place] [address] [place] JAI ABDOMEN 0 MEDICAL RON W/O IMAGING CONTRAST ASS MATERIAL CT PELVIS 44023 [facility] W/O 0 [place]ICAL [place] [address] [place] MARCE HEAD/BRAI 0 MEDICAL BENNY N W/[place] [address] [facility] MAXILLOFA 0 MEDICAL MEDICAL CIAL W/O IMAGING IMAGING CONTRAST ASS ASS MATERIAL 3D 98545 [place] MARCE RENDERING 0 MEDICAL BENNY IMAGING W/INTERP& ASS POSTPROC DIFF WORK STATION 3D 77010 [facility] RENDERING 0 MEDICAL RON W/INTERP IMAGING & [place] [address] [facility] HEAD/BRAI 0 MEDICAL RON N W/O IMAGING CONTRAST ASS MATERIAL RADIOLOGI 71595 [place] MARCE C 0 MEDICAL BENNY EXAMINATI IMAGING ON KNEE 3 ASS VIEWS RADEX 11290 NICK MARCE ANKLE 0 MEDICAL BENNY COMPLETE IMAGING MINIMUM 3 ASS VIEWS RADEX 83960 NICK MARCE ELBOW 9 MEDICAL BENNY COMPLETE IMAGING MINIMUM 3 ASS VIEWS RADEX 98467 [facility] [place] GA[facility] HAND 9 RADIOLOGY ANA MINIMUM 3 VIEWS RADEX 74085 [facility] [place] GA[facility] FOREARM 2 9 RADIOLOGY ANA VIEWS RADEX 53046 [facility] [place] [facility] WRIST 9 RADIOLOGY ANA COMPLETE MINIMUM 3 VIEWS Encounters Encounter Start End Date Code Location Performer Type Date CRITICAL [facility]. ACCESS 7 7 [facility] EULA OFFICE [address] [facility] MELIDA[facility]Y OUTPATIEN 7 7 [facility] T VISIT 25 PHYSICIAN MINUTES S OFFICE [address] [facility] OUTPATIEN 7 7 GABBY T VISIT [address] ACCESS 7 [address] [facility] [address] ACCESS 7 7 [facility] EULA OFFICE [address] DAIGLE OUTPATIEN 7 7 GABBY T VISIT 15 PHYSICIAN MINUTES S OFFICE [address] [facility] OUTPATIEN 7 7 GABBY T VISIT 15 PHYSICIAN MINUTES S OFFICE 90302 ROBERT ROEBRT OUTPATIEN 6 6 T VISIT 25 MINUTES OFFICE 32414 [facility] RAFA [facility] OUTPATIEN 6 6 [facility] T [facility] 10 [facility] DEPT MINUTES [facility] MERA - 6 6 [facility] T OFFICE 09223 NABIL ASIF MEAGAN OUTPATIEN 6 6 MD NATASHA, T VISIT PSC 15 MINUTES OFFICE 95207 NABIL LYON OUTPATIEN 6 6 MD NATASHA, T VISIT PSC 15 MINUTES [facility] - [facility] T OFFICE 66039 [facility] 6 6 [facility] DANYELLE T VISIT ORTHOPAED 15 IC CTR MINUTES OFFICE 00901 [facility] OUTPATI[facility] 6 6 [facility] DANY[facility] T NEW 30 ORTHOPAED MINUTES IC [facility] ACCESS 6 6 [facility] CR[facility]ICAL [facility] ACCESS 6 6 [facility] OFFICE 26940 NABIL ASIF MEAGAN OUTPATIEN 6 6 MD NATASHA, T VISIT PSC 15 MINUTES [facility] - 6 6 [facility] T CRITICAL [facility] ACCESS 5 5 [facility] EMERGENCY [address] [facility] T VISIT LOW/MODER SEVERITY [facility]OSP[facility] - 5 5 [facility]PATIEN INC T OFFICE 68018 NABIL BUX ANJ OUTPATIEN 5 5 MD NATASHA, T VISIT PSC 10 MINUTES OFFICE 95304 CLARI KAUR BUX ANJ OUTPATIEN 5 5 T NEW 30 MINUTES OFFICE 40193 [facility] MCMANUSPATIALPHONSE 5 5 Prince [facility]ST[facility] EUGENIA T VISIT MDPLC 10 MINUTES OFFICE 20213 HARMEET MCMANUSPATIALPHOSNE 5 5 Prince YUEN T VISIT MDPLC 10 MINUTES OFFICE 57216 HARMEET MCMANUSPATIALPHONSE 5 5 [facility]STINGS NALLELY T VISIT MDPLC 10 MINUTES OFFICE 14692 HARMEET MCMANUSPATIALPHONSE 4 4 Prince HASTINGS MAT T VISIT MDPLC 10 MINUTES INITIAL 83780 [facility] PREVENTIV 4 4 [facility] DEPT DEPT MEDICINE NEW PT AGE 18-39YRS OFFICE 20025 [facility]STINGS OUTPATIEN 4 4 EUGENIA BELLO T VISIT 15 MINUTES [facility] - 3 3 [facility] T CR[facility]ICAL [facility] ACCESS 3 3 [facility] Emergency JINA Flores (ER) 3 12:40 3 13:44 [facility] EMERGENCY 26291 BRITTANY FLORES 3 3 [facility] T VISIT MODERATE SEVERITY OFFICE 70235 RISON ALL RISON ALL OUTPATIEN 3 3 T VISIT 10 MINUTES OFFICE 09789 RISON ALL RISON ALL OUTPATIEN 3 3 T VISIT 10 MINUTES OFFICE 98055 NEYMAR BLACKMON OUTPATIEN 2 2 NALLELY NALLELY T NEW [address] ACCESS 2 2 [facility] EMERGENCY [address] [facility] 2 2 GAB[facility] T VISIT MODERATE SEVERITY CRITICAL ST. ACCESS 2 2 [facility] OFFICE 95933 BRIANA KAUR OUTPATIEN 2 2 T VISIT [address] [facility] 2 2 GABBY [facility] T VISIT PRACTICE MODERATE SEVERITY [facility] - 1 1 [facility] T OFFICE 37971 LIAM GARCIAFROILAN OUTPATIEN 1 1 PETE SILVA THO T VISIT CLINIC 15 PSC MINUTES OFFICE 43696 [place] OUTPATIEN 1 1 PETE JR THO T VISIT CLINIC [address] ACCESS 1 1 [facility] EMERGENCY [address] ST. 1 1 GABBY Sherman VISIT LOW/MODER SEVERITY OFFICE 45174 NEPHROLOG EDIL OUTPATIEN 0 0 Y DAYAN Sherman VISIT ASSOCIATE 15 S MINUTES
--- OUTSIDE RECORDS SUMMARY | 2016-09-16 06:58 | External Medical Summary Rpt ---
Author Author , Organization [employer] Address Unknown Phone Unavailable Care Team Providers Care Digital Imaging Specialist Name Role Phone NABIL KAUR MD, PSC, [...] [facility], Unavailable Unavailable [facility] Unavailable [facility]available [facility], Unavailable Unavailable [facility] MARCE BENNY, Unavailable Unavailable MARCE BENNY DOERGER KIR, DOERGER Unavailable Unavailable KIR DUFF MEAGAN, DUFF MEAGAN Unavailable Unavailable [facility] Unavailable Unavailable [place], [facility] SPENCER EBACHER MAT, EBACHER Unavailable Unavailable MAT JENSEN THO, Unavailable Unavailable JENSEN THO BLACKMON NALLELY, Unavailable Unavailable BLACKMON NALLELY [facility], Unavailable Unavailable [facility], [facility]available Unavailable [facility] DARLING NOVOA Unavailable Unavailable DARLING MENESES Unavailable Unavailable EUGENIA GAUTHIER ANA, ABRAHAN Unavailable Unavailable ANA [facility] Un[facility], [facility] HOBLITZEL DANYELLE, Unavailable Unavailable HOBLITZEL DANYELLE HARMEET HASTINGS Unavailable Unavailable MDPLCHARMEET MDPLC [facility] Unavailable Unavailable IMAGING ASS, [facility] ELISEO CRI, ELISEO CRI Unavailable Unavailable CLARI KAUR MD, CLARI Unavailable Unavailable NATASHA DAIGLE, DAIGLE Unavailable Unavailable JAI VELASQUEZ, JAI Unavailable Unavailable [facility] Unavailable [facility]available [facility], [facility] Unavailable Unavailable [facility], [facility] Unavailable Unavailable OF NOT, [facility] RISON ALL, RISON ALL Unavailable Unavailable SALIM DAINA, SALIM DAINA Unavailable Unavailable [facility], Unavailable Unavailable [facility], Unavailable Unavailable [facility] Unavailable Unavailable PHYSICIANS, [facility] . [facility] EULA, Unavailable Unavailable [facility] EULA NATHANIEL SCO, NATHANIEL SCO Unavailable Unavailable [facility] Unavailable Unavailable DEPT MICHELLE, [facility]LE WEHRMAN III DAYAN, Unavailable Unavailable WEHRMAN III DAYAN WEHRMAN III DAYAN, Unavailable Unavailable WEHRMAN III DAYAN WILLOBY, WILLOBY Unavailable Unavailable WILLOBY NALLELY, WILLOBY Unavailable Unavailable NALLELY Purpose Continuity of Care Document - 04-04-2009 through 2016 Problems Code Diagnosis DOS Provider Status [id number] EPILEPSY 08-01-2016 [facility] NOT GABBY INTRACT W/O EULA STATUS EPILEPTICUS H539 UNSPECIFIED 08-01-2016 . VISUAL GABBY DISTURBANCE EULA R51 HEADACHE 08-01-2016 . GABBY EULA R5383 OTHER 07-25-2016 [facility] [id number] OTH 07-09-2016 MIGRAINE GABBY NOT INTRACT PHYSICIANS W/O STATUS MIGRAINOSUS M542 CERVICALGIA 07-09-2016 [facility] PHYS[facility] R110 NAUSEA 07-04-2016 [facility] PHYSICIANS M24625 EPISODIC 06-24-2016 TENSION-TYP GABBY E HEADACHE PHYSICIANS NOT INTRACTABLE L570 ACTINIC 03-19-2016 ROBERT KERATOSIS L732 HIDRADENITI 03-19-2016 ROBERT S SUPPURATIVA L930 DISCOID 03-19-2016 ROBERT LUPUS ERYTHEMATOS US Z202 CONTACT 02-08-2016 [facility] WITH DISTRICT EXPOSURE [facility] DEPT INFECT MICHELLE SEXUAL MODE TRANSMS C87628 SPONDYLOSIS 09-19-2015 NABIL KAUR, W/O , PSC MYELOPATH/R ADICULOPATH Y LUMB RGN M5116 INTERVERTEB 09-19-2015 YOLANDA LYON MD, PSC D/O W/RADICULOP ATHY LUMB RGN H62544 OTHER LONG 09-19-2015 [facility] CURRENT INC DRUG THERAPY J64600 OTHER 08-03-2015 [facility] PSC TENOSYNOVIT IS RIGHT SHOULDER M461 SACROILIITI 07-24-2015 Jaspal LYON MD, PSC ELSEWHERE CLASSIFIED M545 LOW BACK 07-24-2015 [facility] M791 MYALGIA 07-24-2015 NABIL KAUR MD, PSC M7581 OTHER 07-12-2015 [facility]OULDER H LESIONS [facility] RIGHT [facility] SHOULDER S41821 PAIN IN 06-14-2015 ST. RIGHT GABBY SHOULDER EULA [id number] UNS INJURY 06-02-2015 ST. 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 7244 THORACIC/ASHLEY 10-24-2014 CLARI KAUR MBOSACRAL NEURITIS/RA DICULITIS UNSPEC 33395 DISPLCMT 07-26-2014 HARMEET Morrison LUMBAR HASTINGS INTERVERT MDPLC DISC W/O MYELOPATHY 7213 LUMBOSACRAL 06-27-2014 HARMEET HASTINGS SPONDYLOSIS MDPLC WITHOUT MYELOPATHY 58273 MORBID 04-19-2014 HARMEET Morrison OBESITY HASTINGS MDPLC V5869 LONG-TERM 04-19-2014 HARMEET Morrison (CURRENT) DARLING USE OF MDPLC OTHER MEDICATIONS 7238 OTHER 01-21-2014 HARMEET Morrison SYNDROMES HASTINGS AFFECTING MDPLC CERVICAL REGION 2382 NEOPLASM OF 10-06-2013 [facility] UNCERTAIN BEHAVIOR OF SKIN V2502 GENERAL 08-17-2013 [facility] DEPT INITIATION [facility] CONTRACEPT MEASURES 7295 PAIN IN 04-19-2013 [facility] SOFT [facility] TISSUES OF INC LIMB 40050 SWELLING OF 04-19-2013 [facility] LIMB [facility] INC 9594 INJURY 04-19-2013 [facility] OTHER AND [facility]OS[facility] UNSPECIFIED INC HAND EXCEPT FINGER 43106 SPRAIN AND 03-22-2013 WEHRMAN III STRAIN OF DAYAN UNSPECIFIED SITE OF HAND 98937 CONTUSION 11-14-2011 ST. OF HAND GABBY EULA 32626 CONTUSION 11-14-2011 ST. OF WRIST GABBY EULA 94467 BLISTR 11-14-2011 ST W/EPID LOSS GABBY DUE BURN MED CTR UNSPEC SITE HAND 05363 BLISTERS 11-14-2011 ST. 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 BODY SURF GABBY W/3RD DEG EULA BURN<10%/UN S AMT 9492 BLISTERS 11-14-2011 ST W/EPIDERMAL GABBY LOSS DUE MED CTR BURN UNSPEC SITE 9599 INJURY 11-14-2011 RADIOLOGY OTHER AND ASSOCIATES UNSPECIFIED OF NOTH UNSPECIFIED SITE V065 NEED 11-14-2011 ST. PROPHYLACTI CRESCENT C EULA VACCINATION W/TETANUS-D [facility] 5990 URINARY 11-01-2011 WILLOBY NALLELY TRACT INFECTION SITE NOT SPECIFIED 6235 LEUKORRHEA 11-01-2011 WILLOBY NALLELY NOT SPECIFIED INFECTIVE 96208 SPONDYLOSIS 11-01-2011 WILLOBY NALLELY UNSPEC SITE W/O MENTION MYELOPATHY 496 CHRONIC 09-05-2011 WILLOBY NALLELY AIRWAY OBSTRUCTION NEC 71565 PAIN IN 07-16-2011 ST. JOINT, GABBY LOWER LEG EULA 7245 UNSPECIFIED 06-19-2011 [facility] NATASHA BACKACHE 9597 INJURY 06-19-2011 BRIANA KAUR OTHER&UNSPE CIFIED KNEE LEG ANKLE&FOOT 41795 CONTUSION 06-15-2011 ST OF KNEE GABBY MED CTR 7231 CERVICALGIA 05-30-2011 W[facility]EN NATASHA 9154 FINGER 05-30-2011 [facility] NATASHA INSECT BITE NONVENOMOUS W/O MENTION INF 4739 UNSPECIFIED 04-22-2011 WILLOBY NALLELY SINUSITIS 490 BRONCHITIS 04-22-2011 WILLOBY NALLELY NOT SPECIFIED ACUTE OR CHRONIC 18355 CHRON 03-21-2011 [facility] TIS W/O LES INC RENL MEDULRY NECROS 42283 ACUT 03-21-2011 [facility] TIS W/O LES INC RENAL MEDULRY NECROS 09948 UNSPECIFIED 03-21-2011 [facility] TIS 5849 ACUTE 04-10-2010 [facility] FAILURE UNSPECIFIED 7880 RENAL COLIC 01-06-2010 [facility] 7840 HEADACHE 12-06-2009 [facility] 7804 DIZZINESS 09-30-2009 [place] [facility] GIDDINESS IM[facility] 76207 UNSPECIFIED 08-24-2009 [place] S[facility] OF MEDICAL ANKLE IMAGING ASS SPRAIN AND STRAIN 9239 CONTUSION 04-11-2009 [facility] UNSPECIFIED IMAGING ASS PART OF UPPER LIMB 9593 INJURY 04-04-2009 [facility] [place] OTHER&UNSPE RADIOLOGY CIFIED ELBOW FOREARM&WRI ST Medications Na ND Rx Da Fi Fi [...] ST 28 SH ti CE 10 8- 8- 00 SI 79 ve T 70 20 20 DE NE 7. 07 11 11 IL 5- 0 PH C 32 AR 5 MA MG CY TA OF BL ET CY NT HI AN A AM 00 09 09 0 30 10 EA 24 RU Ac OX 78 -2 -[address] 28 SH ti IC 12 8- 8- 00 SI 80 ve IL 61 20 20 DE NE LI 30 11 11 IL N 5 PH C 50 AR 0 MA MG CY CA OF PS UL CY E NT HI AN A Immunization Name Date Route CVX Reacti Commen Provid Is Given on t er Refuse d TETANU ST. No S & 2011 [facility] ERIA EULA TOXOID S ADSORB ED 7/>YR IM Procedures Procedure DOS Code Location Performer Comment MRI BRAIN 24839 [facility] BRAIN 7 [facility] STEM W/O EULA EULA W/CONTRAS T MATERIAL INJ A[address] [facility] GADOBENAT 7 [facility] E EULA EUL[place] [address] [facility] [address] HEAD/BRAI 7 [facility] N W/O EULA EULA CONTRAST MATERIAL RADEX 27545 [facility] SPINE 7 [facility] CERVICAL EULA EULA 4 OR 5 VIEWS THERAPEUT 53955 DAIGLE IC 7 [facility] PROPHYLAC TIC/DX PHYSICIAN INJECTION S SUBQ/IM DESTRUCTI 79465 YESICA ROBERT ON 6 PREMALIGN ANT LESION 1ST SYPHILIS 02192 [facility] SAL[facility] DAINA TEST 6 DISTRICT NON-TREPO [facility] DEPT NEMAL MICHELLE ANTIBODY QUAL [facility] [address] [facility] SAL[facility] DAINA NEISSERIA 6 DISTRICT [facility] DEPT GONORRHOE MICHELLE AE AMPLIFIED PROBE TQ [facility] 66993 [facility] SAL[facility] DAINA CHLAMYDIA 6 [facility] DEPT TRACHOMAT MICHELLE IS AMPLIFIED PROBE [facility] G0463 [facility] OUTPATIEN 6 [facility] T CLIN INC INC VISIT ASSESS & MGMT PT DRUG TEST G0481 [facility] DEFINITV [address] ID INC INC METH P DAY 8-14 DRUG CL DRUG TST G0477 [facility] PRESUMP;C 6 [facility] MEM [facility]OS[facility] PBL BEING INC INC READ DC OPT OBV ONLY THERAPEUT 87521 PROFESSIO CROSSFIEL IC PX 1/> 6 [facility]AL [facility] D [facility] AREAS ASSOC EACH 15 PSC MIN EXERCISES E-STIM G0283 PROFESSIO CROSSFIEL 1/> AREAS 6 [facility] OTH THAN ASSOC WND CARE PSC PART TX PLAN THERAPEUT 83413 PROFESS[facility] CROSSFIEL IC PX 1/> 6 [facility] ARE[facility] ASSOC EACH 15 PSC MIN EXERCISES E-STIM G0283 PROFESSIO CROSSFIEL 1/> AREAS 6 [facility] REH[facility] D POLO OTH THAN ASSOC WND CARE PSC PART TX PLAN THERAPEUT 91795 PROFESSIO CROSSFIEL IC PX 1/> 6 [facility] D POL[facility] AREAS ASSOC EACH 15 PSC MIN EXERCISES E-STIM G0283 PROFESSIO CROSSFIEL 1/> AREAS 6 NAL REHAB D POLO OTH THAN ASSOC WND CARE PSC PART TX PLAN E-STIM G0283 PROFESSIO CROSSFIEL 1/> AREAS 6 NAL REHAB D POLO OTH THAN ASSOC WND CARE PSC PART TX PLAN THERAPEUT 40252 PROFESSIO CROSSFIEL IC PX 1/> 6 [facility] D POLO AREAS ASSOC EACH 15 PSC MIN EXERCISES THERAPEUT 20031 PROFESSIO PROFESSIO IC PX 1/> 6 NAL REHAB NAL REHAB AREAS ASSOC ASSOC EACH 15 PSC PSC MIN EXERCISES E-STIM G0283 PROFESSIO PROFESSIO 1/> AREAS 6 NAL REHAB NAL REHAB OTH THAN ASSOC ASSOC WND CARE PSC PSC PART TX PLAN E-STIM G0283 PROFESSIO CROSSFIEL 1/> AREAS 6 NAL REHAB D POLO OTH THAN ASSOC WND CARE PSC PART TX PLAN THERAPEUT 15947 PROFESSIO CROSSFIEL IC PX 1/> 6 [facility]OC EACH 15 PSC MIN EXERCISES HOSPITAL G0463 [facility] OUTPATIEN 6 [facility] MEM [facility]OS[facility] T CLIN INC INC VISIT ASSESS & MGMT PT E-STIM G0283 PROFESSIO CROSSFIEL 1/> AREAS 6 NAL REHAB D POLO OTH THAN ASSOC WND CARE PSC PART TX PLAN THERAPEUT 26883 PROFESSIO CROSSFIEL IC PX 1/> 6 NAL REHAB D POLO AREAS ASSOC EACH 15 PSC MIN EXERCISES THERAPEUT 18749 PROFESSIO CROSSFIEL IC PX 1/> 6 NAL REHAB D POLO AREAS ASSOC EACH 15 PSC MIN EXERCISES E-STIM G0283 PROFESSIO CROSSFIEL 1/> AREAS 6 NAL REHAB D POLO OTH THAN ASSOC WND CARE PSC PART TX PLAN E-STIM G0283 PROFESSIO CROSSFIEL 1/> AREAS 6 NAL REHAB D POLO OTH THAN ASSOC WND CARE PSC PART TX PLAN THERAPEUT 27616 PROFESSIO CROSSFIEL IC PX 1/> 6 NAL REHAB D POLO AREAS ASSOC EACH 15 PSC MIN EXERCISES THERAPEUT 61619 PROFESSIO CROSSFIEL IC PX 1/> 6 NAL REHAB D POLO AREAS ASSOC EACH 15 PSC MIN EXERCISES E-STIM G0283 PROFESSIO CROSSFIEL 1/> AREAS 6 NAL REHAB D POLO OTH THAN ASSOC WND CARE PSC PART TX PLAN E-STIM G0283 PROFESSIO CROSSFIEL 1/> AREAS 6 NAL REHAB D POLO OTH THAN ASSOC WND CARE PSC PART TX PLAN THERAPEUT 47693 PROFESSIO CROSSFIEL IC PX 1/> 6 NAL REHAB D POLO AREAS ASSOC EACH 15 PSC MIN EXERCISES THERAPEUT 34222 PROFESSIO CROSSFIEL IC PX 1/> 6 NAL REHAB D POLO AREAS ASSOC EACH 15 PSC MIN EXERCISES E-STIM G0283 PROFESSIO CROSSFIEL 1/> AREAS 6 NAL REHAB D POLO OTH THAN ASSOC WND CARE PSC PART TX PLAN E-STIM G0283 PROFESSIO CROSSFIEL 1/> AREAS 6 NAL REHAB D POLO OTH THAN ASSOC WND CARE PSC PART TX PLAN THERAPEUT 47179 PROFESSIO PROFESSIO IC PX 1/> 6 NAL REHAB NAL REHAB AREAS ASSOC ASSOC EACH 15 PSC PSC MIN EXERCISES PHYSICAL 66801 PROFESSIO CROSSFIEL THERAPY 6 NAL REHAB D POLO EVALUATIO ASSOC N PSC THERAPEUT 21052 PROFESSIO CROSSFIEL IC PX 1/> 6 NAL REHAB D POLO AREAS ASSOC EACH 15 PSC MIN EXERCISES E-STIM G0283 PROFESSIO CROSSFIEL 1/> AREAS 6 NAL REHAB D POLO OTH THAN ASSOC WND CARE PSC PART TX PLAN RADEX [address] SHOULDER 6 [facility] COMPLETE EULA EULA MINIMUM 2 V[place] [address] RADIOLOGY NATHANIEL SCO JT UPPER 6 EXTREMITY ASSOCIATE W/O S OF NOTH CONTRAST [facility] HOSPITAL G0463 [facility] OUTPATIEN 6 [facility]OS[facility] T CLIN INC INC VISIT ASSESS & [place] [address] NABIL ASIF MEAGAN DX/THER 5 MD NATASHA, SBST PSC EPIDURAL/ SUBARACH LUMBAR/SA CRAL LOC Q9966 [facility] 200-299 5 [facility] MG/ML INC INC [place]OD[place] IN[place] [address] MADAR BUX BUX ANJ JOINT 5 ARTHRGRPH Y&/ANES/S TEROID W/DICK DRUG SCR G0434 HARMEET GA NOT 4 Prince HASTINGS CHROMATOG MDPLC MDPLC RAPHIC; ANY NUMBER PT ENC DRUG SCR G0434 HARMEET EBACHER NOT 4 Prince YUEN CHROMATOG MDPLC RAPHIC; ANY NUMBER PT ENC EXCISION 48378 ATKINS ATKINS MALIGNANT 4 TRA TRA LESION F/E/E/N/L 2.1-3.0 CM DRUG SCR G0434 DARLING VALIENTE 4 EUGENIA EUGENIA CHROMATOG RAPHIC; ANY NUMBER PT ENC MRI UPPER 92682 [facility] 3 [facility] EXTREMITY INC INC OTH THAN JT W/O CONTR MATRL RADEX [address] HAND 3 GABBY PIERRE MINIMUM 3 EULA EULA VIEWS LOC Q9967 D[facility] HASTINGS 300-399 2 EUGENIA EUGENIA MG/ML IODINE CONCENTRA TION PER ML DISKOGRAP 31811 [facility] HASTINGS Y LUMBAR 2 EUGENIA EUGENIA RS&I MODERATE 39394 [facility] HASTINGS SEDATJ 2 EUGENIA EUGENIA SAME PHYS/QHP 5/>YRS INIT 30 MIN RINGERS J7120 [facility] HASTINGS LACTATE 2 EUGENIA EUGENIA INFUSION UP TO 1000 CC INJECTION 23503 [facility] HASTINGS PX 2 EUGENIA EUGENIA DISCOGRAP HY EACH LEVEL LUMBAR RINGERS J7120 [facility] HASTINGS LACTATE 2 EUGENIA EUGENIA INFUSION UP TO 1000 CC DISKOGRAP 28779 DAR[facility] White LUMBAR 2 EUGENIA EUGENIA RS&I LOCM Q9967 D[facility] HASTINGS 300-399 2 EUGENIA EUGENIA MG/ML IODINE CONCENTRA TION PER ML MODERATE 95076 [facility] HASTINGS SEDATJ 2 EUGENIA EUGENIA SAME PHYS/QHP 5/>YRS INIT 30 MIN LOCM Q9967 D[facility] HASTINGS 300-399 2 EUGENIA EUGENIA MG/ML IODINE CONCENTRA TION PER ML INJ J0702 [facility]STINGS BETAMETHA 2 EUGENIA EUGENIA SONE ACETATE & PHOSPHATE 3 MG NJX 40363 [facility] HASTINGS ANES&/STR 2 EUGENIA EUGENIA D W/IMG TFRML EDRL LMBR/SAC EA LV MODERATE 91807 [facility] HASTINGS SEDATJ 2 EUGENIA EUGENIA SAME PHYS/QHP 5/>YRS INIT 30 MIN INJECTION J3470 [facility] HASTINGS 2 EUGENIA EUEGNIA HYALURONI DASE UP TO 150 UNITS RINGERS J7120 HASTINGS HASTINGS LACTATE 2 EUGENIA EUGENIA INFUSION UP TO 1000 CC NJX 52081 D[facility] HSATINGS ANES&/STR 2 EUGENIA EUGENIA D W/IMG TFRML EDRL LMBR/SAC EA LV INJECTION J1030 [facility] HASTINGS 2 EUGENIA EUGENIA METHYLPRE DNISOLONE ACETATE [address] HAND 2 CRESCENT GABBY MINIMUM 3 EULA EULA VIEWS TETANUS & [address] [facility] [address] 2 CRESCENT GABBY DIPHTHERI EULA EULA A TOXOIDS ADSORBED 7/>YR IM IM ADM 66165 [facility]. PRQ ID [facility]IM EULA EULA NJXS [address] WRIST 2 CRESCENT GABBY COMPLETE EULA EULA MINIMUM 3 VIEWS INJ J0702 RADIOLOGY DOERGER BETAMETHA 2 KIR SONE ASSOCIATE ACETATE & S OF [facility] PHOSPHATE 3 MG FLUOR 68260 RADIOLOGY RADIOLOGY NEEDLE/CA 2 TH ASSOCIATE ASSOCIATE SPINE/PAR S OF [facility] S OF [facility] ASPINAL DX/THER ADDON MRI [address] SPINAL 2 CRESCENT GABBY CANAL EULA EULA LUMBAR W/[place] [address] JT LOWER 2 GABBY GABBY EXTREM EULA EULA W/O CONTRAST MATRL RADIOLOGI 01927 RADIOLOGY SARA Ralph EXAM 2 III SHALA KNEE ASSOCIATE COMPLETE S [place] NOTH 4/[place] [address] [place] [facility] RETROPERI 1 MEDICAL BENNY TONEAL IMAGING REAL TIME ASS W/IMAGE COMPLETE URNLS DIP 32531 [facility] [place] JR THO STICK/TAB CLINIC LET RGNT PSC AUTO W/O MICROSCOP Y URNLS DIP 19407 [facility] [place] JR THO STICK/TAB CLINIC LET RGNT PSC AUTO W/O MICROSCOP Y COLLECTIO 52827 [facility] N [facility] VENIP[facility]CT PSC URE SBSQ 08476 NEPHROLOG [facility] 0 Y THO CARE/DAY ASSOCIATE 35 S MINUTES SBSQ 63587 NEPHROLOG [facility] 0 Y THO CARE/DAY ASSOCIATE 35 S MINUTES SBSQ 52361 NEPHROLOG [facility] 0 Y THO CARE/DAY ASSOCIATE 15 S MINUTES SBSQ 11406 NEPHROLOG [facility] 0 Y THO CARE/DAY ASSOCIATE 25 S MINUTES SBSQ 09428 NEPHROLOG [facility] 0 Y THO CARE/DAY ASSOCIATE 15 S MINUTES SBSQ 00646 NEPHROLOG [facility] 0 Y THO CARE/DAY ASSOCIATE 25 S MINUTES SBSQ 74415 [facility]PH[facility]OLOG [facility] 0 Y THO CARE/DAY ASSOCIATE 25 S MINUTES HEMODIALY 52825 NEPHROLOG JENSEN [facility] 0 Y THO PROCEDURE ASSOCIATE W/ S PHYS/QHP EVALUATIO N SBSQ 51307 NEPHROLOG [facility] 0 Y THO CARE/DAY ASSOCIATE 15 S MINUTES HEMODIALY 22460 NEPHROLOG JENSEN [facility] 0 Y THO PROCEDURE ASSOCIATE W/ S PHYS/QHP EVALUATIO N SBSQ 67150 [facility]DAY ASSOCIATE 35 S MINUTES SBSQ 07887 [facility] 0 Y [facility]DAY [place] [address] [place] [address] [place] JAI ABDOMEN 0 MEDICAL RON W/O IMAGING CONTRAST ASS MATERIAL CT PELVIS 51779 [place] [facility] W/O 0 [place]ICAL [place] [address] [place] [facility] HEAD/BRAI 0 MEDICAL BENNY N W/O IMAGING CONTRAST ASS MATERIAL 3D 82158 [place] [facility] RENDERING 0 MEDICAL BENNY IMAGING W/INTERP& [place] [address] [facility] MAXILLOFA 0 MEDICAL MEDICAL CIAL W/O IMAGING [place] [address] [place] JAI HEAD/BRAI 0 MEDICAL RON N W/O IMAGING CONTRAST ASS MATERIAL 3D 53277 [place] JAI RENDERING 0 MEDICAL RON W/INTERP IMAGING & ASS POSTPROCE SS SUPERVISI ON RADIOLOGI 84539 [place] [facility] C 0 MEDICAL BENNY EXAMINATI IMAGING ON KNEE 3 ASS VIEWS RADEX 79416 [place] [facility] ANKLE 0 MEDICAL BENNY COMPLETE IMAGING MINIMUM 3 ASS VIEWS RADEX 24-200 34543 [place] [facility] ELBOW 9 MEDICAL BENNY COMPLETE IMAGING MINIMUM 3 ASS VIEWS RADEX 1117-200 35297 [facility] [place] GAUTHIER HAND 9 RADIOLOGY ANA MINIMUM 3 VIEWS RADEX 17-200 56554 [facility] [place] GAUTHIER FOREARM 2 9 RADIOLOGY ANA VIEWS RADEX 17-200 99708 [facility] [place] GAUTHIER WRIST 9 RADIOLOGY ANA COMPLETE MINIMUM 3 VIEWS Encounters Encounter Start End Date Code Location Performer Type Date CRITICAL ST. ACCESS 7 7 [facility] 7 [facility] VISIT 25 PHYSICIAN MINUTES S OFFICE 05317 [facility] OUTPATI 7 7 [facility] VISIT [address] ACCESS 7 7 [facility] EULA OFFICE [address] DAIGLE OUTPATIEN 7 7 [facility]ES[facility] T VISIT [address] ACCESS 7 7 [facility] EULA OFFICE [address] BRIANA OUTPATIEN 7 7 CRESC[facility] T VISIT 15 PHYSICIAN MINUTES S OFFICE 45186 [facility]ERT ROBERT OUTPATIEN 6 6 T VISIT 25 MINUTES OFFICE 37994 KERRI LAMA OUTPATIEN 6 6 DISTRICT T NEW 10 HLTH DEPT MINUTES [facility] MERA - 6 6 [facility] OUTPATIEN INC T OFFICE 52348 NABIL RHODES OUTPATIEN 6 6 MD NATASHA, T VISIT PSC 15 MINUTES OFFICE 29090 NABIL LYON OUTPATIEN 6 6 MD NATASHA, T VISIT PSC 15 MINUTES [facility]OSPITAL [facility] - 6 6 [facility] OUTPATIEN INC T OFFICE 12013 [facility] BLACK OUTPATIEN 6 6 [facility] DANYELLE T VISIT ORTHOPAED [address] ACCESS 6 6 [facility] EUAL OFFICE 42164 AMARAWEA SOFIA OUTPATIEN 6 6 [facility] DANYELLE T NEW 30 ORTHOPAED MINUTES IC CTR CRITICAL [facility]. ACCESS 6 6 [facility] EULA OFFICE 78431 NABIL RHODES OUTPATIEN 6 6 MD NATASHA, T VISIT PSC 15 MINUTES HOSPITAL [facility] - 6 6 [facility] OUTPATIEN INC T EMERGENCY [address] ST. 5 5 [facility] T VISIT LOW/MODER SEVERITY CRITICAL ST. ACCESS 5 5 [facility] - 5 5 [facility] T OFFICE 91552 NABIL BUX ANJ OUTPATIEN 5 5 MD NATASHA, T VISIT PSC 10 MINUTES OFFICE 27084 CLARI BUJori BUX ANJ OUTPATIEN 5 5 T NEW 30 MINUTES OFFICE 93848 HAR[facility] HASTINGS OUTPATIEN 5 5 E. [facility] EUGENIA T VISIT MDPLC 10 MINUTES OFFICE 67045 HARME[facility] SINGLETON OUTPATIEN 5 5 E. [facility]ST[facility] MAT T VISIT MDPLC 10 MINUTES OFFICE 35206 [facility] BLACKMON OUTPATIEN 5 5 [facility] [place] NALLELY T VISIT [facility] 10 MINUTES OFFICE 94897 [facility] SINGLETON OUTPATIEN 4 4 E. [place] MAT T VISIT MDPLC 10 MINUTES INITIAL 80370 E[facility] CO EULA CO PREVENTIV 4 4 [facility] DEPT DEPT MEDICINE NEW PT AGE 18-39YRS OFFICE 92401 D[facility]L[place] HASTINGS OUTPATIEN 4 4 EUGENIA EUGENIA T VISIT 15 MINUTES [facility] - 3 3 [facility] T CRITICAL [facility] ACCESS 3 3 [facility] EMERGENCY 17729 BRITTANY SOTO 3 3 III DAYAN III DAYAN DEPARTMEN T VISIT MODERATE SEVERITY OFFICE 64836 RISON ALL RISON ALL OUTPATIEN 3 3 T VISIT 10 MINUTES OFFICE 09879 [facility] OUTPATIEN 3 3 T VISIT 10 MINUTES OFFICE 92105 NEYMAR BLACKMON OUTPATIEN 2 2 NALLELY NALLELY T NEW [address] ACCESS 2 2 [facility] [address] NAMITA 2 2 [facility] SERVIN [facility] MED CTR T VISIT MODERATE SEVERITY CRITICAL ST. ACCESS 2 2 [facility] EULA OFFICE 02550 BRIANA WARREN NATASHA OUTPATIEN 2 2 T VISIT 15 MINUTES EMERGENCY 79678 [facility] 2 [facility] MED CTR T VISIT MODERATE SEVERITY [facility]OSP[facility] - 1 1 [facility] INC T OFFICE 57755 [facility] OUTPATI[facility] 1 1 PETE S[facility]O T VISIT CLINIC 15 PSC MINUTES OFFICE 09784 [facility] OUTPATIEN 1 1 [facility] T VISIT CLINIC 15 PSC MINUTES EMERGENCY 15163 ST. 1 1 [facility] T VISIT LOW/MODER SEVERITY CRITICAL ST. ACCESS 1 1 [facility] EULA OFFICE 23880 NEPHROLOG EDIL OUTPATIEN 0 0 Y DAYAN T VISIT ASSOCIATE 15 S MINUTES
--- OUTSIDE RECORDS SUMMARY | 2016-09-16 06:58 | External Medical Summary Rpt ---
Author Author [employer] Ortez, VIVIANALILIANA Production Organization [employer] Address Unknown Phone Unavailable Results MRI BRAIN W WO CONTRAST Observa Value Referen Units Interpr Notes Date tion ce etation Range \.br\MR No No No No Aug 01 I BRAIN informa informa informa informa 2016 W WO tion in tion in tion in tion in 2:40 PM CONTRAS source source source source T data data data data 08/02/19 17 2:40 PM\.br\ HISTORY : G40.909 -Epilep sy, unspeci fied, not intract able, without status\ .br\epi lepticu s-ICD-1 0-CM\.b r\R51-H eadache -ICD-10 -CM\.br \H53.9- Unspeci fied visual disturb ance-IC D-10-CM .\.br\\ .br\Mul tihance adminis tered IV in the amount of 20 cc\.br\ Compare : y 2016 CT head.\. br\Cere bellar tonsils within normal limits in positio n. Expecte d signal void\.b r\seen\ .br\in vertebr al, basilar , and interna l carotid arterie s.\.br\ Minimal amount of nonspec ific signal alterat ion noted in the brain\. br\pare nchyma\ .br\whi ch may be due to ischemi c leukoen cephalo serjio. Such signal alterat ion\.br \has\.b r\been seen in patient s with migrain e headach es.\.br \\.br\D iffusio n weighte d images show no acute finding s.\.br\ \.br\IM PRESSIO N:\.br\ Impress ion: No Acute Finding s.\.br\ TSH Observa Value Referen Units Interpr Notes Date tion ce etation Range Thyrotr 1.170 0.270 - mcIU/mL No No Mar 9 opin 4.200 informa informa 2017 [Units/ tion in tion in 8:52 PM volume] source source in data data Serum or Plasma Valproic Observa Value Referen Units Interpr Notes Date tion ce etation Range Valproa 36.1 50.0 - mcg/mL Low No Jul 9 te 100.0 informa 2017 [Mass/v tion in 8:52 PM olume] source in data Serum or Plasma Auto Diff Observa Value Referen Units Interpr Notes Date tion ce etation Range Neutrop 57.1 No % No No Jul 9 hils informa informa informa 2017 [#/volu tion in tion in tion in 3:16 PM me] in source source source Blood data data data by Automat ed count Lymphoc 33.6 No % No No Jul 9 ytes informa informa informa 2017 [#/volu tion in tion in tion in 3:16 PM me] in source source source Blood data data data by Automat ed count Monocyt 7.1 No % No No Jul 9 es informa informa informa 2017 [#/volu tion in tion in tion in 3:16 PM me] in source source source Blood data data data by Automat ed count Eos 1.3 No % No No Jul 9 Percent informa informa informa 2017 tion in tion in tion in 3:16 PM source source source data data data Baso 0.9 No % No No Jul 9 Percent informa informa informa 2017 tion in tion in tion in 3:16 PM source source source data data data Neut# 6.5 1.8 - x10(3)/ No No Mar 9 7.7 mcL informa informa 2017 tion in tion in 3:16 PM source source data data Lymph# 3.8 0.6 - x10(3)/ No No Jul 9 4.8 mcL informa informa 2017 tion in tion in 3:16 PM source source data data [place]# 0.8 0.0 - x10(3)/ No No Mar 9 1.3 mcL informa informa 2017 tion in tion in 3:16 PM source source data data Eos# 0.1 0.0 - x10(3)/ No No Mar 9 0.5 mcL informa informa 2017 tion in tion in 3:16 PM source source data data Baso# 0.1 0.0 - x10(3)/ No Jul 9 0.2 mcL informa informa 2017 tion in tion in 3:16 PM source source data data CBC Observa Value Referen Units Interpr Notes Date tion ce etation Range LEUKOCY 11.3 4.0 - x10(3)/ High No Jul 9 GUILLAUME 11.0 mcL inform 2017 tion in 3:16 PM source data Erythro 4.60 3.80 - x10(6)/ No Jul 25 cytes 5.10 mcL informa informa 2016 [#/volu tion in tion in 3:16 PM me] in source source Blood data data by Automat ed count Hemoglo 12.0 12.0 - gm/dL No Jul 25 bin 15.6 informa informa 2016 [Mass/v tion in tion in 3:16 PM olume] source source in data data Blood Hematoc 37.0 35.7 - % No Jul 25 rit 45.9 informa informa 2016 [Volume tion in tion in 3:16 PM source source Fractio data data n] of Blood by Automat ed count Erythro 80.4 82.5 - fL Low No Jul 25 cyte 99.8 2016 mean tion in 3:16 PM corpusc source ular data volume [Entiti c volume] by Automat ed count Erythro 26.1 27.0 - pg Low No Jul 25 cyte 34.3 inform2016 mean tion in 3:16 PM corpusc source ular data hemoglo bin [Entiti c mass] by Automat ed count Erythro 32.4 32.1 - gm/dL No Jul 25 cyte 35.3 informa informa 2016 mean tion in tion in 3:16 PM corpusc source source ular data data hemoglo bin concent ration [Mass/v olume] by Automat ed count Erythro 17.5 11.5 - % High No Jul 25 cyte 15.0 inform2016 distrib tion in 3:16 PM ution source width data [Ratio] by Automat ed count Platele 413 144 - x10(3)/ No Jul 9 ts 423 mcL informa informa 2016 [#/volu tion in tion in 3:16 PM me] in source source Blood data data by Automat ed count MPV 6.3 6.8 - fL Low No Jul 9 10.8 informa 2016 tion in 3:[address] HEAD WO CONTRAST Observa Value Referen Units Interpr Notes Date ti ce etation Range \.br\CT No No No No Jul 08 HEAD informa informa informa informa 2016 WO tion in tion in tion in tion in 10:50 CONTRAS source source source source AM T data data data data 07/08/19 10:50 AM\.br\ \.br\CL INICAL HISTORY : Severe headach es for the past month. Seizure disorde r.\.br\ \.br\CO MPARISO N: No prior head CT.\.br \\.br\P ROCEDUR E COMMENT S: Routine noncont rast head CT with multipl jorge\.b r\recon structi ons.\.b r\\.br\ FINDING S: No evidenc e of acute stroke, mass, or hemorrh age.\.b r\\.br\ Visible sinuses and mastoid s clear. Visible orbital content s normal. \.br\\. br\IMPR ESSION: \.br\No acute intracr anial abnorma lity.\. br\\.br \\.br\\ .br\CT dose reducti on using one or more of the followi ng: automat ed exposur e\.br\c ontrol; iterati ve reconst ruction ; adjustm ent of the mA and/or kV accordi ng\.br\ to\.br\ patient size.\. br\ XR CERVICAL SPINE AP LATERAL ODONTOID AND OBLIQUE Observa Value Referen Units Interpr Notes Date tion ce etation Range \.br\XR No No No No Jul 04 informa informa informa informa 2016 CERVICA tion in tion in tion in tion in 3:51 PM L SPINE source source source source AP data data data data LATERAL ODONTOI D AND OBLIQUE 07/04/19 17 3:51 PM\.br\ \.br\CL INICAL HISTORY : Neck pain.\. br\\.br \COMPAR [place]: None.\. br\\.br \PROCED URE COMMENT S: Routine C-spine imaging per protoco l. Total of 6\.br\i mages.\ .br\\.b r\FINDI NGS: No fractur e or malalig nment. Soft tissues unremar kable.\ .br\Kandy tebral\ .br\bod y height and disc height relativ ritesh well maintai bharti through out. Bony\.b r\vesna anette patent. Uncover tebral spurrin g minimal ly narrows the RIGHT C3/C4\. br\fora men\.br \\.br\I MPRESSI ON:\.br \No acute abnorma lity.\. br\ CHLAMYDIA AND GONORRHEA TESTING Observa Value Referen Units Interpr Notes Date tion ce etation Range COLLECT AH/GENP No No No No Jan 22 OR ROBE informa informa informa informa 2016 tion in tion in tion in tion in 3:00 PM source source source source data data data data ETHNICI WHITE, No No No No Feb 07 TY NON-HIS informa informa informa informa 2016 PANIC tion in tion in tion in tion in 3:00 PM source source source source data data data data KIT 12-31-2 No No No No Feb 07 EXPIRAT 016 informa informa informa informa 2016 ION tion in tion in tion in tion in 3:00 PM DATE source source source source data data data data SYMPTOM NO No No No No Feb 07 S informa informa informa informa 2016 tion in tion in tion in tion in 3:00 PM source source source source data data data data REASON VOLUNTE No No No No Feb 07 FOR ER/MEDI informa informa informa informa 2016 REQUEST BERNARDA tion in tion in tion in tion in 3:00 PM PROBLEM source source source source data data data data SPECIME URINE No No No No Feb 07 N informa informa informa informa 2016 SOURCE tion in tion in tion in tion in 3:00 PM source source source source data data data data PREGNAN NO No No No No Feb 07 T informa informa informa informa 2016 tion in tion in tion in tion in 3:00 PM source source source source data data data data CHART N/A No No No No Jan 22 NUMBER informa informa informa informa 2016 tion in tion in tion in tion in 3:00 PM source source source source data data data data Chlamyd NEGATIV No No No NEGATIV Feb 07 ia E informa informa informa E 2016 trachom tion in tion in tion in RESULT= 3:00 PM atis source source source WITHIN rRNA data data data NORMAL [Presen ce] in LIMITSP Unspeci OSITIVE fied specime RESULT= n by Probe & ABNORMA target LEQUIVO BERNARDA amplifi RESULT= cation method INDETER MINATEU NSATISF ACTORY RESULT= INVALID Neisser NEGATIV No No No NEGATIV Sep ia E informa informa informa E 2016 gonorrh tion in tion in tion in RESULT= 3:00 PM oeae source source source WITHIN rRNA data data data NORMAL [Presen ce] in LIMITSP Unspeci OSITIVE fied specime RESULT= n by Probe & ABNORMA target LEQUIVO BERNARDA amplifi RESULT= cation method INDETER MINATEU NSATISF ACTORY RESULT= INVALID THE APTIMA COMBO 2 ASSAY IS NOT INTENDE D FOR THE EVALUAT ION OF SUSPECT EDSEXUA L ABUSE OR FOR OTHER MEDICO- LEGAL INDICAT IONS. FOR THOSE PATIENT S FORWHOM A FALSE POSITIV E RESULT MAY HAVE ADVERSE PSYCHO- SOCIAL IMPACT, [facility] MMENDS RETESTI NG.\.br \This report contain s patient informa tion that must be protect ed in accorda nce with the Health Insuran ce Portabi lity and Account ability Act. Treponema pallidum IgG Ab [Presence] in Serum by Immunoassay Observa Value Referen Units Interpr Notes Date tion ce etation Range COLLECT AH No No No No Feb 07 OR informa informa informa informa 2016 tion in tion in tion in tion in 3:00 PM source source source source data data data data ETHNICI WHITE/N No No No No Feb 07 TY ON-HISP informa informa informa informa 2016 tion in tion in tion in tion in 3:00 PM source source source source data data data data PURPOSE DIAGNOS No No No No Feb 07 OF TIC informa informa informa informa 2016 EXAM tion in tion in tion in tion in 3:00 PM source source source source data data data data SPECIME BLOOD No No No No Sep 22 N informa informa informa informa 2016 SOURCE tion in tion in tion in tion in 3:00 PM source source source source data data data data CHART N/A No No No No Sep 22 NUMBER informa informa informa informa 2016 tion in tion in tion in tion in 3:00 PM source source source source data data data data Trepone NON-RONNI No No No METHOD Sep [address] informa informa informa OF 2016 pallidu tion in tion in tion in ANALYSI 3:00 PM m IgG source source source S: Ab data data data EIANORM [Presen AL ce] in RANGE: Serum NON-RONNI by CTIVE\. Immunoa br\This ssay report contain s patient informa tion that must be protect ed in accorda nce with the Health Insuran ce Portabi lity and Account ability Act. Treponema pallidum IgG Ab [Presence] in Serum by Immunoassay Observa Value Referen Units Interpr Notes Date tion ce etation Range COLLECT AH No No No No Sep 22 OR informa informa informa informa 2016 tion in tion in tion in tion in 3:00 PM source source source source data data data data ETHNICI WHITE/N No No No No Sep 22 TY ON-HISP informa informa informa informa 2016 tion in tion in tion in tion in 3:00 PM source source source source data data data data PURPOSE DIAGNOS No No No No Sep 22 OF TIC informa informa informa informa 2016 EXAM tion in tion in tion in tion in 3:00 PM source source source source data data data data SPECIME BLOOD No No No No Sep 22 N informa informa informa informa 2016 SOURCE tion in tion in tion in tion in 3:00 PM source source source source data data data data CHART N/A No No No No Sep 22 NUMBER informa informa informa informa 2016 tion in tion in tion in tion in 3:00 PM source source source source data data data data Trepone Pending No No No \.br\ Sep ma informa informa informa is 2016 pallidu tion in tion in tion in report 3:00 PM m IgG source source source contain Ab data data data s [Presen patient ce] in Serum informa by chencho Immunoa that ssay must be protect ed in accorda nce with the Health Insuran ce Angelica crouch and Account ability Act. CHLAMYDIA AND GONORRHEA TESTING Observa Value Referen Units Interpr Notes Date tion ce etation Range COLLECT AH/GENP No No No No Sep 22 OR ROBE informa informa informa informa 2016 tion in tion in tion in tion in 3:00 PM source source source source data data data data ETHNICI WHITE, No No No No Sep 22 TY NON-HIS informa informa informa informa 2016 PANIC tion in tion in tion in tion in 3:00 PM source source source source data data data data KIT 12-31-2 No No No No Sep 22 EXPIRAT 016 informa informa informa informa 2016 ION tion in tion in tion in tion in 3:00 PM DATE source source source source data data data data SYMPTOM NO No No No No Sep 22 S informa informa informa informa 2016 tion in tion in tion in tion in 3:00 PM source source source source data data data data REASON VOLUNTE No No No No Sep 22 FOR ER/MEDI informa informa informa informa 2016 REQUEST BERNARDA tion in tion in tion in tion in 3:00 PM PROBLEM source source source source data data data data SPECIME URINE No No No No Sep 22 N informa informa informa informa 2016 SOURCE tion in tion in tion in tion in 3:00 PM source source source source data data data data PREGNAN NO No No No No Sep 22 T informa informa informa informa 2016 tion in tion in tion in tion in 3:00 PM source source source source data data data data CHART N/A No No No No Sep 22 NUMBER informa informa informa informa 2016 tion in tion in tion in tion in 3:00 PM source source source source data data data data Chlamyd Pending No No No No Sep 22 ia informa informa informa informa 2016 trachom tion in tion in tion in tion in 3:00 PM atis source source source source rRNA data data data data [Presen ce] in Unspeci fied specime n by Probe & target amplifi cation method Neisser Pending No No No \.br\Th Feb 07 ia informa informa informa is 2016 gonorrh tion in tion in tion in report 3:00 PM oeae source source source contain rRNA data data data s [Presen patient ce] in Unspeci informa fied tion specime that n by must be Probe & target protect ed in amplifi accorda cation nce method with the Health Insuran ce Portabi lity and Account ability Act. XR SHOULDER RIGHT 4 VIEWS Observa Value Referen Units Interpr Notes Date tion ce etation Range \.br\XR No No No No Jun 14 informa informa informa informa 2016 SHOULDE tion in tion in tion in tion in 3:03 PM R RIGHT source source source source 4 data data data data VIEWS 06/14/19 16 3:03 PM\.br\ \.br\HI STORY: M25.511 -Pain in right shoulde r-ICD-1 0-CM\.b r\\.br\ IMPRESS ION: No signifi cant osseous , joint or soft tissue abnorma lity is\.br\ seen.\. br\ MRI SHOULDER RIGHT WO CONTRAST Observa Value Referen Units Interpr Notes Date tion ce etation Range MRI No No No No Jun 02 SHOULDE informa informa informa informa 2016 R RIGHT tion in tion in tion in tion in 11:39 WO source source source source AM CONTRAS data data data data T 06/02/19 16 11:39 AM\.br\ \.br\HI STORY: Shoulde r pain and decreas ed range of motion. \.br\S4 9.91XA- Unspeci fied\.b r\injur y of right shoulde r and upper arm, initial encount er-ICD- 10-CM\. br\\.br \TECHNI QUE: Routine MRI right shoulde r without contras t.\.br\ \.br\CO MPARISO N: None\.b r\\.br\ FINDING S:\.br\ \.br\Th ere is severe tendino sis of the ventral suprasp inatus tendon with\.b r\assoc iated\. br\burs al surface fraying . No high-gr marry rotator cuff tear is identif ied. The\.br \infras pinatus , teres minor, and subscap ularis tendons are intact. The long\.b r\head\ .br\bic eps tendon appears intact and well seated within the bicipit al groove. \.br\Gl enoid labrum is within normal limits. \.br\\. br\Ther e is trace fluid within the subacro mial subdelt oid bursa likely\ .br\phy siologi c.\.br\ The acromio clavicu lar joint is normal. There is no fractur e or marrow\ .br\rep lacing\ .br\pro cess.\. br\\.br \IMPRES ETHEL:\. br\\.br \1. Severe tendino sis localiz ed to the ventral suprasp inatus tendon with\.b r\overl sadie bursal surface fraying . No high-gr marry rotator cuff tear.\. br\ HPV Results Observa Value Referen Units Interpr Notes Date tion ce etation Range HPV Thin No No No TEST Apr 9 Specime Prep informa informa informa INFORMA 2014 n tion in tion in tion in TION: 7:15 AM source source source HPV DNA data data data Probe, High Risk, Thin Prep Specime n.\.br\ The High-ri sk HPV test detects HPV genotyp es 16,18,3 1,33,39 ,45,51, 52,58,5 9, and 68, which are associa laura with cervica l cancer and its precurs or lesions .\.br\H owever, cross-r eaction s with other genotyp es may occur. Results should be correla laura with cytolog ic and histolo gic finding s.\.br\ This test is an amplfie d DNA signal assay by shonda Mullinsat ed by [facility] are Laborat ory in conjunc tion with [employer] Audra. HPV Negativ No No No No Apr 9 HIGH e informa informa informa informa 2014 RISK tion in tion in tion in tion in 7:15 AM source source source source data data data data XR HAND LEFT PA LATERAL AND OBLIQUE Observa Value Referen Units Interpr Notes Date tion ce etation Range XR HAND No No No No Apr 09 LEFT informa informa informa informa 2012 PA tion in tion in tion in tion in 12:17 LATERAL source source source source PM AND data data data data OBLIQUE Apr 09, 2013 12:17:5 0 PM\.br\ \.br\HI STORY: 959.4-I njury, other and unspeci fied, hand, except\ .br\fin bry-ICD -9-CM.\ .br\\.b r\TK RISON: 11/14/19 12.\.br \\.br\I MPRESSI ON: No signifi cant osseous , joint or soft tissue abnorma lity is\.br\ seen. Auto Diff Observa Value Referen Units Interpr Notes Date tion ce etation Range Neutrop 56.0 No % No No Feb 24 hils informa informa informa 2012 [#/volu tion in tion in tion in 9:24 PM me] in source source source Blood data data data by Automat ed count Lymphoc 31.3 No % No No Feb 24 ytes informa informa informa 2012 [#/volu tion in tion in tion in 9:24 PM me] in source source source Blood data data data by Automat ed count Monocyt 7.9 No % No No Feb 24 es informa informa informa 2012 [#/volu tion in tion in tion in 9:24 PM me] in source source source Blood data data data by Automat ed count Eos 4.0 No % No No Feb 24 Percent informa informa informa 2012 tion in tion in tion in 9:24 PM source source source data data data Baso 0.8 No % No No Feb 24 Percent informa informa informa 2012 tion in tion in tion in 9:24 PM source source source data data data Neutrop 4.6 1.8 - x10(3)/ No No Feb 24 hils 7.7 mcL informa informa 2012 [#/volu tion in tion in 9:24 PM me] in source source Blood data data Lymphoc 2.6 0.6 - x10(3)/ No No Feb 24 ytes 4.8 mcL informa informa 2012 [#/volu tion in tion in 9:24 PM me] in source source Blood data data Monocyt 0.7 0.0 - x10(3)/ No No Feb 24 es 1.3 mcL informa informa 2012 [#/volu tion in tion in 9:24 PM me] in source source Blood data data Eosinop 0.3 0.0 - x10(3)/ No No Feb 24 hils 0.5 mcL informa informa 2012 [#/volu tion in tion in 9:24 PM me] in source source Blood data data Basophi 0.1 0.0 - x10(3)/ No No Feb 24 ls 0.2 mcL informa informa 2012 [#/volu tion in tion in 9:24 PM me] in source source Blood data data CBC Observa Value Referen Units Interpr Notes Date tion ce etation Range LEUKOCY 8.3 4.0 - x10(3)/ No No Feb 24 GUILLAUME 11.0 mcL informa informa 2012 tion in tion in 9:24 PM source source data data Erythro 4.41 3.80 - x10(6)/ No No Feb 24 cytes 5.10 mcL informa informa 2012 [#/volu tion in tion in 9:24 PM me] in source source Blood data data by Automat ed count Hemoglo 12.7 12.0 - gm/dL No No Feb 24 bin 15.6 informa informa 2012 [Mass/v tion in tion in 9:24 PM olume] source source in data data Blood Hematoc 38.7 35.7 - % No No Feb 24 rit 45.9 informa informa 2012 [Volume tion in tion in 9:24 PM source source Fractio data data n] of Blood by Automat ed count Erythro 87.8 82.5 - fL No No Feb 24 cyte 99.8 informa informa 2012 mean tion in tion in 9:24 PM corpusc source source ular data data volume [Entiti c volume] by Automat ed count Erythro 28.9 27.0 - pg No No Feb 24 cyte 34.3 informa informa 2012 mean tion in tion in 9:24 PM corpusc source source ular data data hemoglo bin [Entiti c mass] by Automat ed count Erythro 32.9 32.1 - gm/dL No No Feb 24 cyte 35.3 informa informa 2012 mean tion in tion in 9:24 PM corpusc source source ular data data hemoglo bin concent ration [Mass/v olume] by Automat ed count Erythro 14.1 11.5 - % No No Feb 24 cyte 15.0 informa informa 2012 distrib tion in tion in 9:24 PM ution source source width data data [Ratio] by Automat ed count Platele 284 144 - x10(3)/ No No Feb 24 ts 423 mcL informa informa 2012 [#/volu tion in tion in 9:24 PM me] in source source Blood data data by Automat ed count Platele 7.9 6.8 - fL No No Feb 24 t mean 10.8 informa informa 2012 volume tion in tion in 9:24 PM [Entiti source source c data data volume] in Blood XR HAND LEFT PA LATERAL AND OBLIQUE Observa Value Referen Units Interpr Notes Date tion ce etation Range TEXT Left No No No No Nov 13 DIAGNOS hand 3 informa informa informa informa 2011 IS views6/ tion in tion in tion in tion in 7:10 PM BATTERY source source source source HISTORY data data data data : Injury, painImp ression : No fractur e or osseous abnorma lity XR WRIST LEFT PA LATERAL AND OBLIQUE Observa Value Referen Units Interpr Notes Date tion ce etation Range TEXT Left No No No No Nov 13 DIAGNOS wrist, informa informa informa informa 2011 IS 4 tion in tion in tion in tion in 7:10 PM BATTERY views, source source source source 190, data data data data oct 28, [id number] Trauma, no priorsN ormalIM PRESSIO N:Ellen Miguel
--- OUTSIDE RECORDS SUMMARY | 2016-09-16 06:58 | External Medical Summary Rpt ---
Demographics Preferred Language Cambodian Marital Status Unknown [facility] Affiliation Unknown Race Unknown Ethnic Group Unknown Author Author , Organization [employer] Address Unknown Phone Unavailable Purpose Continuity of Care Document - through 2016 Immunization No patient found.
--- OUTSIDE RECORDS SUMMARY | 2016-09-16 06:58 | External Medical Summary Rpt ---
Demographics Preferred Language Palauan Marital Status Unknown [employer]oration[facility] Affiliation Unknown Race Unknown Ethnic Group Unknown Author Author , Organization [employer] Address Unknown Phone Unavailable Purpose Continuity of Care Document - through 2016 Immunization No patient found.
--- OUTSIDE RECORDS SUMMARY | 2016-09-16 06:58 | External Medical Summary Rpt ---
[...] in 3:16 PM source source data data [place]# 0.8 0.0 - x10(3)/ No No Mar [...] MAY HAVE ADVERSE PSYCHO- SOCIAL IMPACT, [facility] MMENDS RETESTI NG.\.br \This report contain s [...] signal assay by shonda Mullinsat ed by [facility] are Laborat ory in conjunc tion with [employer] Audra. HPV Negativ No No No No [...] 190, data data data data oct 28, [id number] Trauma, no priorsN ormalIM PRESSIO N:Ellen Miguel
--- OUTSIDE RECORDS SUMMARY | 2016-09-16 06:58 | External Medical Summary Rpt ---
Author Author , Organization [employer] Address Unknown Phone Unavailable Care Team Providers Care Engineer Remote Control Diesel Name Role Phone NABIL KAUR MD, PSC, [...] [facility] Unavailable Unavailable [facility], Unavailable Unavailable [facility] MARCE BENNY, Unavailable Unavailable MARCE BENNY DOERGER KIR, DOERGER Unavailable Unavailable KIR DUFF MEAGAN, DUFF MEAGAN Unavailable Unavailable [facility] Unavailable Unavailable [place] SPENCER EBACHER MAT, EBACHER Unavailable [...] DANYELLE HARMEET HASTINGS Unavailable Unavailable [facility]PLCHAR[facility] Unavailable Unavailable IM[facility], [facility] ELISEO CRI, ELISEO CRI Unavailable Unavailable CLARI KAUR MD, CLARI Unavailable Unavailable NATASHA DAIGLE, DAIGLE Unavailable Unavailable JAI VELASQUEZ, JAI Unavailable Unavailable [facility]available [facility], [facility] Unavailable Unavailable [facility], [facility] Unavailable Unavailable OF NOT, [facility] RISON ALL, RISON ALL Unavailable Unavailable SALIM DAINA, SALIM DAINA Unavailable Unavailable [facility], Unavailable Unavailable [facility], Un[facility] Unavailable [facility] Unavailable Unavailable PHYSICIANS, [facility] . [place] [facility], Unavailable Unavailable [facility] EUL[facility] NATHANIEL SCO, NATHANIEL SCO Unavailable Unavailable [facility] Unavailable Unavailable DEPT MICHELLE, [facility] MICHELLE WEHRMAN III DAYAN, Unavailable Unavailable WEHRMAN III DAYAN WEHRMAN III DAYAN, Unavailable Unavailable [facility]HRMAN III DAYAN WILLOBY, WILLOBY Unavailable Unavailable WILLOBY NALLELY, WILLOBY Unavailable Unavailable NALLELY Purpose Continuity of Care Document - 04-04-2009 through 2016 Problems Code Diagnosis DOS Provider Status [id number] EPILEPSY 08-01-2016 [facility] NOT GABBY INTRACT W/O EULA STATUS EPILEPTICUS H539 UNSPECIFIED 08-01-2016 . VISUAL GABBY DISTURBANCE EULA R51 HEADACHE 08-01-2016 . GABBY EULA R5383 OTHER 07-25-2016 [facility] PHYSICIANS M05449 OTH 07-09-2016 MIGRAINE GAB[facility] NOT INTRACT PHYSICIANS W/O STATUS MIGRAINOSUS M542 CERVICALGIA 07-09-2016 [facility] R110 NAUSEA 07-04-2016 [facility] PH[facility] G60950 EPISODIC 06-24-2016 TENSION-TYP GABBY E HEADACHE PHYSICIANS NOT INTRACTABLE L570 ACTINIC 03-19-2016 ROBERT KERATOSIS L732 HIDRADENITI 03-19-2016 ROBERT S SUPPURATIVA L930 DISCOID 03-19-2016 ROBERT LUPUS ERYTHEMATOS US Z202 CONTACT 02-08-2016 [facility] WITH DISTRICT EXPOSURE [facility] DEPT INFECT MICHELLE SEXUAL MODE TRANSMS U33426 SPONDYLOSIS 09-19-2015 NABIL KAUR, W/O , PSC MYELOPATH/R ADICULOPATH Y LUMB RGN M5116 INTERVERTEB 09-19-2015 YOLANDA LYON MD, PSC D/O W/RADICULOP ATHY LUMB RGN M48158 OTHER LONG 09-19-2015 [facility] CURRENT INC DRUG THERAPY K32344 OTHER 08-03-2015 [facility] SYNOV[facility]IS [facility] PSC TENOSYNOVIT IS RIGHT SHOULDER M461 SACROILIITI 07-24-2015 Jaspal LYON MD, PSC ELSEWHERE CLASSIFIED M545 LOW BACK 07-24-2015 [facility] PAIN [facility] INC M791 MYALGIA 07-24-2015 NABIL KAUR MD, PSC M7581 OTHER 07-12-2015 [place] SHOULDER H LESIONS [facility] RIGHT [facility] SHOULDER M50746 PAIN IN 06-14-2015 ST. RIGHT [place]AB[place] SHOULDER EULA B4252OT UNS INJURY 06-02-2015 ST. 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 M&T SHLDR GABBY UP ARM LEVL EULA RT ARM INIT ENC S59041 PERSONAL 05-17-2015 [facility]. 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 7244 THORACIC/ASHLEY 10-24-2014 CLARI KAUR MBOSACRAL NEURITIS/RA DICULITIS UNSPEC 89611 DISPLCMT 07-26-2014 HARMEET Morrison LUMBAR HASTINGS INTERVERT MDPLC DISC W/O MYELOPATHY 7213 LUMBOSACRAL 06-27-2014 HARMEET HASTINGS SPONDYLOSIS MDPLC WITHOUT MYELOPATHY 54610 MORBID 04-19-2014 HARMEET Morrison OBESITY HASTINGS MDPLC V5869 LONG-TERM 04-19-2014 HARMEET Morrison (CURRENT) DARLING USE OF MDPLC OTHER MEDICATIONS 7238 OTHER 01-21-2014 HARMEET Morrison SYNDROMES HASTINGS AFFECTING MDPLC CERVICAL REGION 2382 NEOPLASM OF 10-06-2013 [facility] TRA UNCERTAIN BEHAVIOR OF SKIN V2502 GENERAL 08-17-2013 E[facility] CO [facility] INITIATION [facility] CONTRACEPT MEASURES 7295 PAIN IN 04-19-2013 [facility] SOFT [facility] TISSUES OF INC LIMB 66624 SWELLING OF 04-19-2013 [facility] LIMB [facility] INC 9594 INJURY 04-19-2013 [facility] OTHER AND [facility]OS[facility] UNSPECIFIED INC HAND EXCEPT FINGER 32360 SPRAIN AND 03-22-2013 WEHRMAN III STRAIN OF DAYAN UNSPECIFIED SITE OF HAND 46370 CONTUSION 11-14-2011 ST. OF HAND GABBY EULA 56077 CONTUSION 11-14-2011 ST. OF WRIST GAB[place] EUL[place] 76461 BLISTR 11-14-2011 ST W/EPID LOSS [facility] DUE BURN MED CTR UNSPEC SITE HAND 10395 BLISTERS 11-14-2011 ST. 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 BODY SURF GABBY W/3RD DEG EULA BURN<10%/UN S AMT 9492 BLISTERS 11-14-2011 ST W/EPIDERMAL [place] LOSS DUE MED CTR BURN UNSPEC SITE 9599 INJURY 11-14-2011 RAD[facility] OTHER AND ASSOCIATES UNSPECIFIED OF NOTH UNSPECIFIED SITE V065 NEED 11-14-2011 ST. PROPHYLACTI [place] C EUAL VACCINATION W/TETANUS-D [facility] 5990 URINARY 11-01-2011 WILLOBY NALLELY TRACT INFECTION SITE NOT SPECIFIED 6235 LEUKORRHEA 11-01-2011 WILLOBY NALLELY NOT SPECIFIED INFECTIVE 69265 SPONDYLOSIS 11-01-2011 WILLOBY NALLELY UNSPEC SITE W/O MENTION MYELOPATHY 496 CHRONIC 09-05-2011 WILLOBY NALLELY AIRWAY OBSTRUCTION NEC 20265 PAIN IN 07-16-2011 ST. JOINT, GABBY LOWER LEG EULA 7245 UNSPECIFIED 06-19-2011 [facility] NATASHA BACKACHE 9597 INJURY 06-19-2011 BRIANA KAUR OTHER&UNSPE CIFIED KNEE LEG ANKLE&FOOT 04412 CONTUSION 06-15-2011 ST OF KNEE [facility] MED CTR 7231 CERVICALGIA 05-30-2011 [facility] NATASHA 9154 FINGER 05-30-2011 [facility] NATASHA INSECT BITE NONVENOMOUS W/O MENTION INF 4739 UNSPECIFIED 04-22-2011 WILLOBY NALLELY SINUSITIS 490 BRONCHITIS 04-22-2011 WILLOBY NALLELY NOT SPECIFIED ACUTE OR CHRONIC 22453 CHRON 03-21-2011 [facility] TIS W/O LES INC RENL MEDULRY NECROS 42104 ACUT 03-21-2011 [facility] TIS W/O LES INC RENAL MEDULRY NECROS 76152 UNSPECIFIED 03-21-2011 [place] [facility] TIS 5849 ACUTE 04-10-2010 [facility] FAILURE UNSPECIFIED 7880 RENAL COLIC 01-06-2010 [facility] [place] [facility] 7840 HEADACHE 12-06-2009 [facility] [place] [facility] 7804 DIZZINESS 09-30-2009 [place] AND MEDICAL GIDDINESS IMAGING ASS 58759 UNSPECIFIED 08-24-2009 [place] SITE OF MEDICAL ANKLE IMAGING ASS SPRAIN AND STRAIN 9239 CONTUSION 04-11-2009 [facility] UNSPECIFIED IMAGING ASS PART OF UPPER [...] DOS Code Location Performer Comment MRI BRAIN 67981 [facility] BRAIN 7 [facility] STEM W/O EULA EULA W/CONTRAS T MATERIAL INJ [address] [facility]OBENAT 7 [facility] E EULA EUL[place] [address] [facility] ST. HEAD/BRAI 7 [facility] N W/O EULA EULA CONTRAST MATERIAL RADEX 24922 [facility] SPINE 7 [facility] CERVICAL EULA EULA 4 OR 5 VIEWS THERAPEUT 19311 DAIGLE IC 7 [place] PROPHYLAC TIC/DX PHYSICIAN INJECTION S SUBQ/IM DESTRUCTI 25541 YESICA ROBERT ON 6 PREMALIGN ANT LESION 1ST SYPHILIS 28348 [facility] SAL[facility] DAINA TEST 6 DISTRICT NON-TREPO [facility] DEPT NEMAL MICHELLE ANTIBODY QUAL [facility] 58949 [facility] SAL[facility] DAINA NEISSERIA 6 DISTRICT [facility] DEPT GONORRHOE MICHELLE AE AMPLIFIED PROBE TQ [facility] 31816 [facility] DAINA CHLAMYDIA 6 [facility] DEPT TRACHOMAT MICHELLE IS AMPLIFIED PROBE [facility] G0463 [facility] OUTPATIEN 6 [facility] T CLIN INC INC VISIT ASSESS & MGMT PT DRUG TEST G0481 [facility] DEFINITV [address] [address] ID INC INC METH P DAY 8-14 DRUG CL DRUG TST G0477 [facility] PRESUMP;C 6 [facility] PBL BEING INC INC READ DC OPT OBV ONLY THERAPEUT 40534 PROFESSIO CROSSFIEL IC PX 1/> 6 NAL [facility] D POLO AREAS ASSOC EACH 15 PSC MIN EXERCISES E-STIM G0283 PROFESSIO CROSSFIEL 1/> AREAS 6 [facility]O OTH THAN ASSOC WND CARE PSC PART TX PLAN THERAPEUT 52706 PROFESSIO CROSSFIEL IC PX 1/> 6 [facility] POLO AREAS ASSOC EACH 15 PSC MIN EXERCISES E-STIM G0283 PROFESSIO CROSSFIEL 1/> AREAS 6 N[facility] REHAB D POLO OTH THAN ASSOC WND CARE PSC PART TX PLAN THERAPEUT 85037 PROFESSIO CROSSFIEL IC PX 1/> 6 N[facility]HAB D POLO AREAS ASSOC EACH 15 PSC MIN EXERCISES E-STIM G0283 PROFESSIO CROSSFIEL 1/> AREAS 6 NAL REHAB D POLO OTH THAN ASSOC WND CARE PSC PART TX PLAN E-STIM G0283 PROFESSIO CROSSFIEL 1/> AREAS 6 NAL REHAB D POLO OTH THAN ASSOC WND CARE PSC PART TX PLAN THERAPEUT 78397 PROFESSIO CROSSFIEL IC PX 1/> 6 NAL REHAB D POLO AREAS ASSOC EACH 15 PSC MIN EXERCISES THERAPEUT 47169 PROFESSIO PROFESSIO IC PX 1/> 6 NAL REHAB NAL REHAB AREAS ASSOC ASSOC EACH 15 PSC PSC MIN EXERCISES E-STIM G0283 PROFESSIO PROFESSIO 1/> AREAS 6 NAL REHAB NAL REHAB OTH THAN ASSOC ASSOC WND CARE PSC PSC PART TX PLAN E-STIM G0283 PROFESSIO CROSSFIEL 1/> AREAS 6 NAL REHAB D POLO OTH THAN ASSOC WND CARE PSC PART TX PLAN THERAPEUT 43058 PROFESSIO CROSSFIEL IC PX 1/> 6 [facility] POL[facility] AREAS ASSOC EACH 15 PSC MIN EXERCISES HOSPITAL G0463 [facility] OUTPATIEN 6 [facility] T CLIN INC INC VISIT ASSESS & MGMT PT E-STIM G0283 PROFESSIO CROSSFIEL 1/> AREAS 6 NAL REHAB D POLO OTH THAN ASSOC WND CARE PSC PART TX PLAN THERAPEUT 77897 PROFESSIO CROSSFIEL IC PX 1/> 6 NAL REHAB D POLO AREAS ASSOC EACH 15 PSC MIN EXERCISES THERAPEUT 21936 PROFESSIO CROSSFIEL IC PX 1/> 6 NAL REHAB D POLO AREAS ASSOC EACH 15 PSC MIN EXERCISES E-STIM G0283 PROFESSIO CROSSFIEL 1/> AREAS 6 NAL REHAB D POLO OTH THAN ASSOC WND CARE PSC PART TX PLAN E-STIM G0283 PROFESSIO CROSSFIEL 1/> AREAS 6 NAL REHAB D POLO OTH THAN ASSOC WND CARE PSC PART TX PLAN THERAPEUT 76209 PROFESSIO CROSSFIEL IC PX 1/> 6 NAL REHAB D POLO AREAS ASSOC EACH 15 PSC MIN EXERCISES THERAPEUT 95573 PROFESSIO CROSSFIEL IC PX 1/> 6 NAL REHAB D POLO AREAS ASSOC EACH 15 PSC MIN EXERCISES E-STIM G0283 PROFESSIO CROSSFIEL 1/> AREAS 6 NAL REHAB D POLO OTH THAN ASSOC WND CARE PSC PART TX PLAN E-STIM G0283 PROFESSIO CROSSFIEL 1/> AREAS 6 NAL REHAB D POLO OTH THAN ASSOC WND CARE PSC PART TX PLAN THERAPEUT 80222 PROFESSIO CROSSFIEL IC PX 1/> 6 NAL REHAB D POLO AREAS ASSOC EACH 15 PSC MIN EXERCISES THERAPEUT 80536 PROFESSIO CROSSFIEL IC PX 1/> 6 NAL REHAB D POLO AREAS ASSOC EACH 15 PSC MIN EXERCISES E-STIM G0283 PROFESSIO CROSSFIEL 1/> AREAS 6 NAL REHAB D POLO OTH THAN ASSOC WND CARE PSC PART TX PLAN E-STIM G0283 PROFESSIO CROSSFIEL 1/> AREAS 6 NAL REHAB D POLO OTH THAN ASSOC WND CARE PSC PART TX PLAN THERAPEUT 84095 PROFESSIO PROFESSIO IC PX 1/> 6 NAL REHAB NAL REHAB AREAS ASSOC ASSOC EACH 15 PSC PSC MIN EXERCISES PHYSICAL 67786 PROFESSIO CROSSFIEL THERAPY 6 NAL REHAB D POLO EVALUATIO ASSOC N PSC THERAPEUT 34593 PROFESSIO CROSSFIEL IC PX 1/> 6 NAL REHAB D POLO AREAS ASSOC EACH 15 PSC MIN EXERCISES E-STIM G0283 PROFESSIO CROSSFIEL 1/> AREAS 6 NAL REHAB D POLO OTH THAN ASSOC WND CARE PSC PART TX PLAN RADEX [address] SHOULDER 6 [facility] COMPLETE EULA EULA MINIMUM 2 V[place] [address] RADIOLOGY NATHANIEL SCO JT UPPER 6 EXTREMITY ASSOCIATE W/O S OF NOTH CONTRAST [facility] H[facility]PITAL G0463 [facility] OUTPATIEN 6 [facility] T CLIN INC INC VISIT ASSESS & [place]X [address] NABIL ASIF MEAGAN DX/THER 5 MD NATASHA, SBST PSC EPIDURAL/ SUBARACH LUMBAR/SA CRAL LOC Q9966 [facility] 200-299 5 [facility] MG/ML INC INC [place]OD[place] IN[place] [address] MADAR BUX BUX ANJ JOINT 5 ARTHRGRPH Y&/ANES/S TEROID W/DICK DRUG SCR G0434 HARMEET GA NOT 4 Prince HASTINGS CHROMATOG MDPLC MDPLC RAPHIC; ANY NUMBER PT ENC DRUG SCR G0434 HARMEET EBACHER NOT 4 Prince YUEN CHROMATOG MDPLC RAPHIC; ANY NUMBER PT ENC EXCISION 23284 ATKINS ATKINS MALIGNANT 4 TRA TRA LESION F/E/E/N/L 2.1-3.0 CM DRUG SCR G0434 [place] VALIENTE 4 EUGENIA EUGENIA CHROMATOG RAPHIC; ANY NUMBER PT ENC MRI UPPER 78526 [facility] 3 [facility] EXTREMITY INC INC OTH THAN JT W/O CONTR MATRL RADEX [address] HAND 3 GABBY PIERRE MINIMUM 3 EULA EULA VIEWS LOC Q9967 [place] HASTINGS 300-399 2 EUGENIA EUGENIA MG/ML IODINE CONCENTRA TION PER ML DISKOGRAP 78714 [place] HASTINGS Y LUMBAR 2 EUGENIA EUGENIA RS&I MODERATE 53686 [place] HASTINGS SEDATJ 2 EUGENIA EUGENIA SAME PHYS/QHP 5/>YRS INIT 30 MIN RINGERS J7120 [place] HASTINGS LACTATE 2 EUGENIA EUGENIA INFUSION UP TO 1000 CC INJECTION 82931 [place] HASTINGS PX 2 EUGENIA EUGENIA DISCOGRAP HY EACH LEVEL LUMBAR RINGERS J7120 [place] HASTINGS LACTATE 2 EUGENIA EUGENIA INFUSION UP TO 1000 CC DISKOGRAP 95651 [place] White LUMBAR 2 EUGENIA EUGENIA RS&I LOCM Q9967 [place] HASTINGS 300-399 2 EUGENIA EUGENIA MG/ML IODINE CONCENTRA TION PER ML MODERATE 18026 [place] HASTINGS SEDATJ 2 EUGENIA EUGENIA SAME PHYS/QHP 5/>YRS INIT 30 MIN LOCM Q9967 [place] HASTINGS 300-399 2 EUGNEIA EUGENIA MG/ML IODINE CONCENTRA TION PER ML INJ J0702 [place] HASTINGS BETAMETHA 2 EUGENIA EUGENIA SONE ACETATE & PHOSPHATE 3 MG NJX 55735 [place] HASTINGS ANES&/STR 2 EUGENIA EUGENIA D W/IMG TFRML EDRL LMBR/SAC EA LV MODERATE 83748 [place] HASTINGS SEDATJ 2 EUGENIA EUGENIA SAME PHYS/QHP 5/>YRS INIT 30 MIN INJECTION J3470 [place] HASTINGS 2 EUGENIA EUGENIA HYALURONI DASE UP TO 150 UNITS RINGERS J7120 HASTINGS HASTINGS LACTATE 2 EUGENIA EUGENIA INFUSION UP TO 1000 CC NJX 50514 [place] HASTINGS ANES&/STR 2 EUGENIA EUGENIA D W/IMG TFRML EDRL LMBR/SAC EA LV INJECTION J1030 [place] HASTINGS 2 EUGENIA EUGENIA METHYLPRE DNISOLONE ACETATE [address] HAND 2 [place] GABBY MINIMUM 3 EULA EULA VIEWS TETANUS & 15313 [facility] ST. 2 [place] GABBY DIPHTHERI EULA EULA A TOXOIDS ADSORBED 7/>YR IM IM ADM 91556 [facility] ID [facility] EULA EULA NJXS [address] WRIST 2 [place] GABBY COMPLETE EULA EULA MINIMUM 3 VIEWS INJ J0702 RADIOLOGY DOERGER BETAMETHA 2 KIR SONE ASSOCIATE ACETATE & S OF [facility] PHOSPHATE 3 MG FLUOR 93107 RADI[facility] RADIOLOGY NEEDLE/CA 2 TH ASSOCIATE ASSOCIATE SPINE/PAR S OF [facility] S OF [facility] ASPINAL DX/THER [place] [address] SPINAL 2 [place] GABBY CANAL EULA EULA LUMBAR W/[place] [address] JT LOWER 2 GABBY GABBY EXTREM EULA EULA W/O CONTRAST MATRL RADIOLOGI 71877 RADIOLOGY SARA Ralph EXAM 2 III SHALA KNEE ASSOCIATE COMPLETE S [place]H 4/[place] [address] [place] MARCE RETROPERI 1 MEDICAL BENNY TONEAL IMAGING REAL TIME ASS W/IMAGE COMPLETE URNLS DIP 91318 [facility] 1 [place] JR THO STICK/TAB CLINIC LET RGNT PSC AUTO W/O MICROSCOP Y URNLS DIP 21035 [facility] 1 [place] JR THO STICK/TAB CLINIC LET RGNT PSC AUTO W/O MICROSCOP Y COLLECTIO 99359 [facility] N [facility]OUS [facility] V[facility] PSC URE SBSQ 17254 [facility] 0 Y THO CARE/DAY ASSOCIATE 35 S MINUTES SBSQ 70213 NEPH[facility]OLOG [facility] 0 Y THO CARE/DAY ASSOCIATE 35 S MINUTES SBSQ 94530 [facility]OLOG [facility] 0 Y THO CARE/DAY ASSOCIATE 15 S MINUTES SBSQ 64735 [facility] 0 Y THO CARE/DAY ASSOCIATE 25 S MINUTES SBSQ 78923 [facility] 0 Y THO CARE/DAY ASSOCIATE 15 S MINUTES SBSQ 69249 [facility] 0 Y THO CARE/DAY ASSOCIATE 25 S MINUTES SBSQ 61922 [facility] 0 Y THO CARE/DAY ASSOCIATE 25 S MINUTES HEMODIALY 74236 NEPHROLOG J[facility] 0 Y THO PROCEDURE ASSOCIATE W/ S PHYS/QHP EVALUATIO N SBSQ 04452 [facility] 0 Y THO CARE/DAY ASSOCIATE 15 S MINUTES HEMODIALY 71071 NE[facility]ROLOG JENS[facility] 0 Y THO PROCEDURE ASSOCIATE W/ S PHYS/QHP EVALUATIO N SBSQ 12059 [facility]DAY ASSOCIATE 35 S MINUTES SBSQ 99825 [facility] 0 Y THO CARE/DAY ASS[place] [address] [place] [address] [place] JAI ABDOMEN 0 MEDICAL RON W/O IMAGING CONTRAST ASS MATERIAL CT PELVIS 73230 [place] JAI W/O 0 [place]ICAL [place] [address] [place] MARCE HEAD/BRAI 0 MEDICAL BENNY N W/O IMAGING CONTRAST ASS MATERIAL 3D 34196 [place] MARCE RENDERING 0 MEDICAL BENNY IMAGING W/INTERP& [place] [address] [facility] 0 MEDICAL MEDICAL CIAL W/O IMAGING [place] [address] [place] JAI HEAD/BRAI 0 MEDICAL RON N W/O IMAGING CONTRAST ASS MATERIAL 3D 77421 [place] JAI RENDERING 0 MEDICAL RON W/INTERP IMAGING & ASS POSTPROCE SS SUPERVISI ON RADIOLOGI 41067 [place] MARCE C 0 MEDICAL BENNY EXAMINATI IMAGING ON KNEE 3 ASS VIEWS RADEX 25035 [place] MARCE ANKLE 0 MEDICAL BENNY COMPLETE IMAGING MINIMUM 3 ASS VIEWS RADEX 24-200 60327 [place] MARCE ELBOW 9 MEDICAL BENNY COMPLETE IMAGING MINIMUM 3 ASS VIEWS RADEX 1117-200 83829 [facility] [place] GAUTHIER HAND 9 RADIOLOGY ANA MINIMUM 3 VIEWS RADEX 17-200 07685 [facility] [place] [facility] FOREARM 2 9 RADIOLOGY ANA VIEWS RADEX 17-200 89093 [facility] [place] [facility] WRIST 9 RADIOLOGY ANA COMPLETE MINIMUM 3 VIEWS Encounters Encounter Start End Date Code Location Performer Type Date CRITICAL [facility] ACCESS 7 7 [facility] 7 [facility] VISIT 25 PHYSICIAN MINUTES S OFFICE 95675 [facility]PAT[facility] 7 7 [facility] VISIT [address] ACCESS 7 7 [facility] OFFICE [address] [facility] DAIGLE OUTPATIEN 7 7 [place] T VISIT [address] ACCESS 7 7 [facility] OFFICE [address] BRIANA OUTPATIEN 7 7 [place] T VISIT 15 PHYSICIAN MINUTES S OFFICE 62448 ROBERT ROBERT OUTPATIEN 6 6 T VISIT 25 MINUTES OFFICE 30483 KERRI LAMA OUTPATIEN 6 6 DISTRICT T NEW 10 HLTH DEPT MINUTES [facility] MERA - 6 6 [facility] OUTPATIEN INC T OFFICE 96807 NABIL RHODES OUTPATIEN 6 6 MD NATASHA, T VISIT PSC 15 MINUTES OFFICE 61259 NABIL LYON OUTPATIEN 6 6 MD NATASHA, T VISIT PSC 15 MINUTES HOSPITAL MERA - 6 6 [facility] OUTPATIEN INC T OFFICE 87466 [facility] BLACK OUTPATIEN 6 6 [facility] DANYELLE T VISIT ORTHOPAED [address] ACCESS 6 6 [facility] E[facility] OFFICE 28797 AMARAWEA SOFIA OUTPATIEN 6 6 [facility] DANYELLE T NEW 30 ORTHOPAED MINUTES IC CTR CRITICAL [facility]. ACCESS 6 6 [facility] E[facility] OFFICE 43084 NABIL RHODES OUTPATIEN 6 6 MD NATASHA, T VISIT PSC 15 MINUTES HOSPITAL [facility]A - 6 6 [facility] OUTPATIEN INC T EMERGENCY [address] [facility] T VISIT LOW/MODER SEVERITY CRITICAL ST. ACCESS 5 5 [facility] MERA - 5 5 [facility] OUTPATIEN INC T OFFICE 80809 NABIL BUX ANJ OUTPATIEN 5 5 MD NATASHA, T VISIT PSC 10 MINUTES OFFICE 48649 CLARI BUJori BUX ANJ OUTPATIEN 5 5 T NEW 30 MINUTES OFFICE 95865 [facility] HASTINGS OUTPATIEN 5 5 E. [place] EUGENIA T VISIT MDPLC 10 MINUTES OFFICE 96827 [facility] SINGLETON OUTPATIEN 5 5 E. HASTINGS MAT T VISIT MDPLC 10 MINUTES OFFICE 94022 [facility] BLACKMON OUTPATIEN 5 5 E. [place] NALLELY T VISIT MDPLC 10 MINUTES OFFICE 53377 AHRMEET SINGLETON OUTPATIEN 4 4 E. [place] MAT T VISIT MDPLC 10 MINUTES INITIAL 91306 [facility] [place] EULA CO PREVENTIV 4 4 [facility]ALTH HEALTH E DEPT DEPT MEDICINE NEW PT AGE 18-39YRS OFFICE 10415 [place] HASTINGS OUTPATIEN 4 4 EUGENIA EUGENIA T VISIT 15 MINUTES HOSPITAL [facility] - 3 3 [facility] OUTPATIEN INC T [facility]ICAL [facility] ACCESS 3 3 [facility] EMERGENCY 90954 BRITTANY SOTO 3 3 III DAYAN III DAYAN DEPARTMEN T VISIT MODERATE SEVERITY OFFICE 31680 RISON ALL RISON ALL OUTPATIEN 3 3 T VISIT 10 MINUTES OFFICE 59079 RISON [facility]ISON ALL OUTPATIEN 3 3 T VISIT 10 MINUTES OFFICE 38077 NEYMAR BLACKMON OUTPATIEN 2 2 NALLELY NALLELY T NEW [address] ACCESS 2 2 [facility] [address] NAMITA 2 2 [facility] T VISIT MODERATE SEVERITY CRITICAL ST. ACCESS 2 2 [facility] OFFICE 21773 BRIANA WARREN NATASHA OUTPATIEN 2 2 T VISIT 15 MINUTES [facility] 20[facility] T VISIT MODERATE SEVERITY [facility] - 1 1 [facility] T OFFICE 45873 [facility] OUTPATI[facility] 1 1 PETE SILVA THO T VISIT CLINIC 15 PSC MINUTES OFFICE 36564 [facility] OUTPATIEN 1 1 PETE SILVA THO T VISIT CLINIC 15 PSC MINUT[address] EMERGENCY [address] [facility] T VISIT LOW/MODER SEVERITY CRITICAL ST. ACCESS 1 1 [facility] OFFICE 69536 NEPHROLOG EDIL OUTPATIEN 0 0 Y DAYAN T VISIT ASSOCIATE 15 S MINUTES
--- OUTSIDE RECORDS SUMMARY | 2016-09-16 07:02 | External Medical Summary Rpt ---
Author Author , Organization [employer] Address Unknown Phone Unavailable Care Team Providers Care Portable Sawyer Name Role Phone NABIL KAUR MD, PSC, Unavailable Unavailable NABIL KAUR MD, PSC ATKINS TRA, ATKINS Unavailable Unavailable TRA ATKINS TRA, ATKINS Unavailable Unavailable TRA NAMITA KRI, Unavailable Unavailable NAMITA KRI BRACKEN MEAGAN, BRACKEN Unavailable Unavailable MEAGAN SARA III SHALA, Unavailable Unavailable SARA III SAHLA ROBERT, ROBERT Unavailable Unavailable ROBERT, ROBERT Unavailable Unavailable WARREN, WARREN Unavailable Unavailable WARREN NATASHA, WARREN NATASHA Unavailable Unavailable WARREN NATASHA, WARREN NATASHA Unavailable Unavailable BUX ANJ, BUX ANJ Unavailable Unavailable EDIL DAYAN, EDIL Unavailable Unavailable DAYAN [facility], Unavailable Unavailable [facility] Unavailable [facility] POLO, Unavailable Unavailable [facility] MARCE BENNY, Unavailable Unavailable MARCE BENNY DOERGER KIR, DOERGER Unavailable Unavailable KIR DUFF MEAGAN, DUFF MEAGAN Unavailable Unavailable [facility] Unavailable [place]available [place], [facility] [place] EBACHER MAT, EBACHER Unavailable Unavailable MAT JENSEN THO, Unavailable Unavailable JENSEN THO BLACKMON NALLELY, Unavailable Unavailable BLACKMON NALLELY [facility], Unavailable Unavailable [facility], Unavailable Unavailable [facility] DARLING NOVOA Unavailable Unavailable DARLING MENESES Unavailable Unavailable EUGENIA ABRAHAN ANA, ABRAHAN Unavailable Unavailable ANA [facility] Un[facility], [facility] HOBLITZEL DANYELLE, Unavailable Unavailable HOBLITZEL DANYELLE HARMEET HASTINGS Unavailable Unavailable [facility]PLC, [facility] Unavailable Unavailable [facility], [facility] ELISEO CRI, ELISEO CRI Unavailable Unavailable CLARI KAUR MD, CLARI Unavailable Unavailable BUX MD DAIGLE, DAIGLE Unavailable Unavailable JAI RON, JAI Unavailable Unavailable [facility] Unavailable [facility], [facility] Unavailable Unavailable [facility] Unavailable Unavailable [facility], [facility] RISON ALL, RISON ALL Unavailable Unavailable SALIM DAINA, SALIM DAINA Unavailable [facility]available [facility], Unavailable Unavailable [facility], Unavailable Unavailable [facility] Unavailable Unavailable PHYSICIANS, [facility] . ALEXANDER EULA, Unavailable Unavailable [facility] EULA NATHANIEL SCO, NATHANIEL SCO Unavailable Unavailable [facility] Un[facility] Unavailable DEPT MICHELLE, [facility] MICHELLE WEHRMAN III DAYAN, Unavailable Unavailable WEHRMAN III DAYAN WEHRMAN III DAYAN, Unavailable Unavailable WEHRMAN III DAYAN WILLOBY, WILLOBY Unavailable Unavailable WILLOBY NALLELY, WILLOBY Unavailable Unavailable NALLELY Purpose Continuity of Care Document - 04-04-2009 through 2016 Problems Code Diagnosis DOS Provider Status [id number] EPILEPSY 08-01-2016 . [facility] NOT [facility] INTRACT W/O EULA STATUS EPILEPTICUS H539 UNSPECIFIED 08-01-2016 . VISUAL [facility] DISTURBANCE EULA R51 HEADACHE 08-01-2016 . [facility] EULA R5383 OTHER 07-25-2016 FAT[facility]UE [facility] N24341 OTH 07-09-2016 MIGRAINE [facility] NOT INTRACT PHYSICIANS W/O STATUS MIGRAINOSUS M542 CERVICALGIA 07-09-2016 [facility] R110 NAUSEA 07-04-2016 [facility] Q96984 EPISODIC 06-24-2016 TENSION-TYP [facility] E HEADACHE PHYSICIANS NOT INTRACTABLE L570 ACTINIC 03-19-2016 ROBERT KERATOSIS L732 HIDRADENITI 03-19-2016 ROBERT S SUPPURATIVA L930 DISCOID 03-19-2016 ROBERT LUPUS ERYTHEMATOS US Z202 CONTACT 02-08-2016 [facility] DE[facility] INFECT MICHELLE SEXUAL MODE TRANSMS G61583 SPONDYLOSIS 09-19-2015 NABIL KAUR, W/O , PSC MYELOPATH/R ADICULOPATH Y LUMB RGN M5116 INTERVERTEB 09-19-2015 YOLANDA LYON AJAY BETTENCOURT, PSC D/O W/RADICULOP ATHY LUMB RGN H26513 OTHER LONG 09-19-2015 [facility] CURRENT INC DRUG THERAPY P02478 OTHER 08-03-2015 [facility]OV[facility]IS [facility] PSC TENOSYNOVIT IS RIGHT SHOULDER M461 SACROILIITI 07-24-2015 Jaspal LYON MD, PSC ELSEWHERE CLASSIFIED M545 LOW BACK 07-24-2015 [facility] PAIN [facility] INC M791 MYALGIA 07-24-2015 NABIL KAUR MD, PSC M7581 OTHER 07-12-2015 [facility] SHOULDER H LESIONS [facility] RIGHT [facility] SHOULDER T56013 PAIN IN 06-14-2015 ST. RIGHT [facility] SHOULDER EULA T9560JT UNS INJURY 06-02-2015 ST. RT SHOULDER ALEXANDER UPPER ARM EULA INITIAL ENCNTR K99385 PAIN IN 05-23-2015 NABIL KAUR, RIGHT HIP , PSC N68972 PAIN IN 05-23-2015 NABIL KAUR LEFT HIP , PSC J449 CHRONIC 05-17-2015 . OBSTRUCTIVE ALEXANDER PULMONARY EULA DISEASE UNS [id number] STRN UNS 05-17-2015 . 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 & [facility] BIOLOG [facility] STS 7202 SACROILIITI 12-19-2014 Jaspal LYON MD, PSC ELSEWHERE CLASSIFIED 21603 DEGEN 10-24-2014 CLARI KAUR LUMBAR/LUMB OSACRAL INTERVERTEB RAL DISC 7244 THORACIC/ASHLEY 10-24-2014 CLARI ROOT MD NEURITIS/RA DICULITIS UNSPEC 65707 DISPLCMT 07-26-2014 HARMEET Morrison LUMBAR DARLING INTERVERT MDPLC DISC W/O MYELOPATHY 7213 LUMBOSACRAL 06-27-2014 HARMEET HASTINGS SPONDYLOSIS MDPLC WITHOUT MYELOPATHY 76717 MORBID 04-19-2014 HARMEET Morrison OBESITY HASTINGS MDPLC V5869 LONG-TERM 04-19-2014 HARMEET E. (CURRENT) HASTINGS USE OF MDPLC OTHER MEDICATIONS 7238 OTHER 01-21-2014 HARMEET SHETTY HASTINGS AFFECTING MDPLC CERVICAL REGION 2382 NEOPLASM OF 10-06-2013 ATKINS TRA UNCERTAIN BEHAVIOR OF SKIN V2502 GENERAL 08-17-2013 [facility] INITIATION OT CONTRACEPT MEASURES 7295 PAIN IN 04-19-2013 [facility] SOFT [facility] TISSUES OF INC LIMB 38402 SWELLING OF 04-19-2013 [facility] LIMB [facility] INC 9594 INJURY 04-19-2013 [facility] OTHER AND MEM HOS[facility] UNSPECIFIED INC HAND EXCEPT FINGER 65656 SPRAIN AND 03-22-2013 WEHRMAN III STRAIN OF DAYAN UNSPECIFIED SITE OF HAND 19695 CONTUSION 11-14-2011 ST. OF HAND [facility] EULA 61575 CONTUSION 11-14-2011 ST. OF WRIST [facility] E[facility] 62917 BLISTR 11-14-2011 ST W/EPID LOSS [facility] DUE BURN MED CTR UNSPEC SITE HAND 04151 BLISTERS 11-14-2011 ST. 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 BODY SURF [facility] W/3RD DEG EULA BURN<10%/UN S AMT 9492 BLISTERS 11-14-2011 ST W/EPIDERMAL [facility] LOSS DUE MED CTR BURN UNSPEC SITE 9599 INJURY 11-14-2011 RAD[facility]OLOGY OTHER AND ASSOCIATES UNSPECIFIED OF NOTH UNSPECIFIED SITE V065 NEED 11-14-2011 ST. PROPHYLACTI [facility] C EULA VACCINATION W/TETANUS-D [facility] 5990 URINARY 11-01-2011 WILLOBY NALLELY TRACT INFECTION SITE NOT SPECIFIED 6235 LEUKORRHEA 11-01-2011 WILLOBY NALLELY NOT SPECIFIED INFECTIVE 40440 SPONDYLOSIS 11-01-2011 WILLOBY NALLELY UNSPEC SITE W/O MENTION MYELOPATHY 496 CHRONIC 09-05-2011 WILLOBY NALLELY AIRWAY OBSTRUCTION NEC 76790 PAIN IN 07-16-2011 [facility], [facility] LOWER LEG EULA 7245 UNSPECIFIED 06-19-2011 WARREN BRE BACKACHE 9597 INJURY 06-19-2011 BRIANA KAUR OTHER&UNSPE CIFIED KNEE LEG ANKLE&FOOT 75306 CONTUSION 06-15-2011 ST OF KNEE [facility] CTR 7231 CERVICALGIA 05-30-2011 WARREN NATASHA 9154 FINGER 05-30-2011 BRIANA KAUR INSECT BITE NONVENOMOUS W/O MENTION INF 4739 UNSPECIFIED 04-22-2011 WILLOBY NALLELY SINUSITIS 490 BRONCHITIS 04-22-2011 WILLOBY NALLELY NOT SPECIFIED ACUTE OR CHRONIC 63435 CHRON 03-21-2011 [facility] TIS W/O LES INC RENL MEDULRY NECROS 02026 ACUT 03-21-2011 [facility] TIS W/O LES INC RENAL MEDULRY NECROS 89555 UNSPECIFIED 03-21-2011 [facility] TIS 5849 ACUTE 04-10-2010 [facility] FAILURE UNSPECIFIED 7880 RENAL COLIC 01-06-2010 [facility] 7840 HEADACHE 12-06-2009 [facility] 7804 DIZZINESS 09-30-2009 [place] AND [facility] GIDDINESS IM[facility]ING [facility] 41802 UNSPECIFIED 08-24-2009 [place] SITE OF MEDICAL ANKLE IMAGING ASS SPRAIN AND STRAIN 9239 CONTUSION 04-11-2009 [facility] UNSPECIFIED IMAGING ASS PART OF UPPER LIMB [...] .0 ST 28 SH ti CE 10 8 8 SI 79 ve T 70 20 20 DE NE 7. 07 11 11 IL 5- 0 PH C 32 AR 5 MA MG CY TA OF BL ET CY NT HI AN A AM 00 09 09 0 30 10 EA 24 RU Ac OX 78 -2 -[address] 28 SH ti IC 12 SI 80 ve IL 61 20 20 DE NE LI 30 11 11 IL N 5 PH C 50 AR 0 MA MG CY CA OF PS UL CY E NT HI AN A Immunization Name Date Route CVX Reacti Commen Provid Is Given on t er Refuse d HAVENANU ST. No S & 2011 ELIZAB DIPHTH ETH ERIA [...] DOS Code Location Performer Comment MRI BRAIN 47603 [facility] BRAIN 7 [facility] STEM W/O EULA EULA W/CONTRAS T MATERIAL INJ A9577 [facility] GADOBENAT 7 [facility] E EULA EUL[place] M[place] [address] [facility] HEAD/BRAI 7 [facility] N W/O EULA EULA CONTRAST MATERIAL THERAPEUT 77989 DAIGLE IC 7 ALEXANDER PROPHYLAC TIC/DX PHYSICIAN INJECTION S SUBQ/IM RADEX 97899 [facility] SPINE 7 [facility] CERVICAL EULA EULA 4 OR 5 VIEWS DESTRUCTI 48622 YESICA ROBERT ON 6 PREMALIGN ANT LESION 1ST IADNA 63571 [facility] DAINA CHLAMYDIA 6 [facility] DEPT TRACHOMAT MICHELLE IS AMPLIFIED PROBE TQ SYPHILIS 22454 [facility] DAINA TEST 6 [facility] NON-TREPO [facility] DEPT NEMAL MICHELLE ANTIBODY QUAL IADNA 98448 [facility] CRAIG DAINA NEISSERIA 6 [facility] DEPT GONORRHOE MICHELLE AE AMPLIFIED PROBE TQ DRUG TEST G0481 [facility] DEFINITV [address] ID INC INC METH P DAY 8-14 DR[facility] G0463 [facility] OUTPATIEN 6 [facility] T CLIN INC INC VISIT ASSESS & MGMT PT DRUG TST G0477 [facility] PRESUMP;C 6 [facility] MEM [facility]OS[facility] PBL BEING INC INC READ DC OPT OBV ONLY THERAPEUT 83866 PROFESSIO CROSSFIEL IC PX 1/> 6 NAL REHAB D POLO AREAS ASSOC EACH 15 PSC MIN EXERCISES E-STIM G0283 PROFESSIO CROSSFIEL 1/> AREAS 6 [facility] OTH THAN ASSOC WND CARE PSC PART TX PLAN E-STIM G0283 PROFESSIO CROSSFIEL 1/> AREAS 6 [facility] D POLO OTH THAN ASSOC WND CARE PSC PART TX PLAN THERAPEUT 82233 PROFESSIO CROSSFIEL IC PX 1/> 6 NAL REHAB D POLO AREAS ASSOC EACH 15 PSC MIN EXERCISES THERAPEUT 95098 PROFESSIO CROSSFIEL IC PX 1/> 6 NAL REHAB D POLO AREAS ASSOC EACH 15 PSC MIN EXERCISES E-STIM G0283 PROFESSIO CROSSFIEL 1/> AREAS 6 NAL REHAB D POLO OTH THAN ASSOC WND CARE PSC PART TX PLAN E-STIM G0283 PROFESSIO CROSSFIEL 1/> AREAS 6 NAL REHAB D POLO OTH THAN ASSOC WND CARE PSC PART TX PLAN THERAPEUT 99785 PROFESSIO CROSSFIEL IC PX 1/> 6 NAL REHAB D POLO AREAS ASSOC EACH 15 PSC MIN EXERCISES THERAPEUT 17611 PROFESSIO PROFESSIO IC PX 1/> 6 NAL REHAB NAL REHAB AREAS ASSOC ASSOC EACH 15 PSC PSC MIN EXERCISES E-STIM G0283 PROFESSIO PROFESSIO 1/> AREAS 6 NAL REHAB NAL REHAB OTH THAN ASSOC ASSOC WND CARE PSC PSC PART TX PLAN E-STIM G0283 PROFESSIO CROSSFIEL 1/> AREAS 6 NAL REHAB D POLO OTH THAN ASSOC WND CARE PSC PART TX PLAN THERAPEUT 39885 PROFESSIO CROSSFIEL IC PX 1/> 6 NAL REHAB D POLO AREAS ASSOC EACH 15 PSC MIN EXERCISES [facility] G0463 [facility] OUTPATIEN 6 [facility] MEM [facility]OS[facility] T CLIN INC INC VISIT ASSESS & MGMT PT E-STIM G0283 PROFESSIO CROSSFIEL 1/> AREAS 6 NAL REHAB D POLO OTH THAN ASSOC WND CARE PSC PART TX PLAN THERAPEUT 13460 PROFESSIO CROSSFIEL IC PX 1/> 6 NAL REHAB D POLO AREAS ASSOC EACH 15 PSC MIN EXERCISES THERAPEUT 88557 PROFESSIO CROSSFIEL IC PX 1/> 6 NAL REHAB D POLO AREAS ASSOC EACH 15 PSC MIN EXERCISES E-STIM G0283 PROFESSIO CROSSFIEL 1/> AREAS 6 NAL REHAB D POLO OTH THAN ASSOC WND CARE PSC PART TX PLAN E-STIM G0283 PROFESSIO CROSSFIEL 1/> AREAS 6 NAL REHAB D POLO OTH THAN ASSOC WND CARE PSC PART TX PLAN THERAPEUT 52386 PROFESSIO CROSSFIEL IC PX 1/> 6 NAL REHAB D POLO AREAS ASSOC EACH 15 PSC MIN EXERCISES THERAPEUT 57583 PROFESSIO CROSSFIEL IC PX 1/> 6 NAL REHAB D POLO AREAS ASSOC EACH 15 PSC MIN EXERCISES E-STIM G0283 PROFESSIO CROSSFIEL 1/> AREAS 6 NAL REHAB D POLO OTH THAN ASSOC WND CARE PSC PART TX PLAN THERAPEUT 52208 PROFESSIO CROSSFIEL IC PX 1/> 6 NAL REHAB D POLO AREAS ASSOC EACH 15 PSC MIN EXERCISES E-STIM G0283 PROFESSIO CROSSFIEL 1/> AREAS 6 NAL REHAB D POLO OTH THAN ASSOC WND CARE PSC PART TX PLAN E-STIM G0283 PROFESSIO CROSSFIEL 1/> AREAS 6 NAL REHAB D POLO OTH THAN ASSOC WND CARE PSC PART TX PLAN THERAPEUT 81302 PROFESSIO CROSSFIEL IC PX 1/> 6 NAL REHAB D POLO AREAS ASSOC EACH 15 PSC MIN EXERCISES THERAPEUT 46840 PROFESSIO PROFESSIO IC PX 1/> 6 NAL REHAB NAL REHAB AREAS ASSOC ASSOC EACH 15 PSC PSC MIN EXERCISES E-STIM G0283 PROFESSIO CROSSFIEL 1/> AREAS 6 NAL REHAB D POLO OTH THAN ASSOC WND CARE PSC PART TX PLAN E-STIM G0283 PROFESSIO CROSSFIEL 1/> AREAS 6 NAL REHAB D POLO OTH THAN ASSOC WND CARE PSC PART TX PLAN PHYSICAL 19449 PROFESSIO CROSSFIEL THERAPY 6 NAL REHAB D POLO EVALUATIO ASSOC N PSC THERAPEUT 04781 PROFESSIO CROSSFIEL IC PX 1/> 6 NAL REHAB D POLO AREAS ASSOC EACH 15 PSC MIN EXERCISES RADEX 08648 [facility] 6 [facility] COMPLETE EULA EULA MINIMUM 2 VIEWS MRI ANY 14270 [facility] 6 EXTREMITY ASSOCIATE W/O S OF [facility] G0463 [facility] OUTPATIEN 6 [facility] MEM HOS[facility] T CLIN INC INC VISIT ASSESS & [place]X [address] NABIL MICHELLEFF MEAGAN DX/THER 5 MD NATASHA, SBST PSC EPIDURAL/ SUBARACH LUMBAR/SA CRAL LOCM Q9966 [facility] 200-299 5 [facility] MG/ML INC INC [place]OD[place] IN[place] [address] CLARI KAUR BUX ANJ JOINT 5 ARTHRGRPH Y&/ANES/S TEROID W/DICK DRUG SCR G0434 HARMEET GA NOT 4 Prince HASTINGS CHROMATOG MDPLC MDPLC RAPHIC; ANY NUMBER PT ENC DRUG SCR G0434 HARMEET EBACHER NOT 4 Prince YUEN CHROMATOG MDPLC RAPHIC; ANY NUMBER PT ENC EXCISION 81955 ATKINS ATKINS MALIGNANT 4 TRA TRA LESION F/E/E/N/L 2.1-3.0 CM DRUG SCR G0434 HASTINGS HASTINGS NOT 4 EUGENIA EUGENIA CHROMATOG RAPHIC; ANY NUMBER PT ENC MRI UPPER 01873 MERAR[facility]ÓN [facility] 3 [facility] EXTREMITY INC INC OTH THAN JT W/O CONTR MATRL RADEX [address] [facility] 3 [facility] 3 EULA EULA [facility] RINGERS J7120 DARLING HASTINGS LACTATE 2 EUGENIA EUGENIA INFUSION UP TO 1000 CC LOCM Q9967 DARLING HASTINGS 300-399 2 EUGENIA EUGENIA MG/ML IODINE CONCENTRA TION PER ML DISKOGRAP 69662 HASTINGS HASTINGS Y LUMBAR 2 EUGENIA EUGENIA RS&I MODERATE 27345 D[facility] HASTINGS SEDATJ 2 EUGENIA EUGENIA SAME PHYS/QHP 5/>YRS INIT 30 MIN MODERATE 64312 DARL[facility] HASTINGS SEDATJ 2 EUGENIA EUGENIA SAME PHYS/QHP 5/>YRS INIT 30 MIN DISKOGRAP 35853 DARLING HASTINGS Y LUMBAR 2 EUGENIA EUGENIA RS&I LOCM Q9967 DARLING HASTINGS 300-399 2 EUGENIA EUGENIA MG/ML IODINE CONCENTRA TION PER ML INJECTION 52104 D[facility] HASTINGS PX 2 EUGENIA EUGENIA DISCOGRAP HY EACH LEVEL LUMBAR RINGERS J7120 D[facility] HASTINGS LACTATE 2 EUGENIA EUGENIA INFUSION UP TO 1000 CC INJECTION J3470 HASTINGS HASTINGS 2 EUGENIA EUGENIA HYALURONI DASE UP TO 150 UNITS RINGERS J7120 D[facility] HASTINGS LACTATE 2 EUGENIA EUGENIA INFUSION UP TO 1000 CC INJ J0702 [facility] BETAMETHA 2 EUGENIA EUGENIA SONE ACETATE & PHOSPHATE 3 MG LOCM Q9967 DARLING HASTINGS 300-399 2 EUGENIA EUGENIA MG/ML IODINE CONCENTRA TION PER ML MODERATE 44830 DARL[facility] HASTINGS SEDATJ 2 EUGENIA EUGENIA SAME PHYS/QHP 5/>YRS INIT 30 MIN NJX 18010 DARLING HASTINGS ANES&/STR 2 EUGENIA EUGENIA D W/IMG TFRML EDRL LMBR/SAC EA LV NJX 54061 DARLING HASTINGS ANES&/STR 2 EUGENIA EUGENIA D W/IMG TFRML EDRL LMBR/SAC EA LV INJECTION J1030 D[facility] HASTINGS 2 EUGENIA BELLO METHYLPRE DNISOLONE ACETATE 40 MG TETANUS & 68620 [facility] 2 [facility] DIPHTHERI EULA EULA A TOXOIDS ADSORBED 7/>YR IM [place] ADM 12647 [facility] PRQ ID 2 [facility] SUBQ/IM EULA EULA NJXS [address] [facility] HAND 2 [facility] MINIMUM 3 EULA EULA VIEWS RADEX 27290 [facility] WRIST 2 [facility] COMPLETE EULA EULA MINIMUM 3 VIEWS FLUOR 58560 RADIOLOGY RADIOLOGY NEEDLE/CA 2 TH ASSOCIATE ASSOCIATE SPINE/PAR S OF [facility] S OF NOTH ASPINAL DX/THER ADDON INJ J0702 RADIOLOGY DOERGER BETAMETHA 2 KIR SONE ASSOCIATE ACETATE & S OF [facility] PHOSPHATE 3 MG [place] ANY [address] [facility] JT LOWER 2 [facility] EXTREM EULA EULA W/O CONTRAST MATRL MRI [address] [facility] SPINAL 2 [facility] CANAL EULA EULA LUMBAR W/O CONTRAST MATERIAL RADIOLOGI 54628 RADIOLOGY SARA Ralph EXAM 2 III SHALA KNEE ASSOCIATE COMPLETE S OF NOT 4/[place] [address] [place] MARCE RETROPERI 1 MEDICAL BENNY TONEAL IMAGING REAL TIME ASS W/IMAGE COMPLETE URNLS DIP 52032 LIAM GARCIA 1 PETE JR THO STICK/TAB CLINIC LET RGNT PSC AUTO W/O MICROSCOP Y URNLS DIP 83593 LIAM GARCIA 1 [place] JR THO STICK/TAB CLINIC LET RGNT PSC AUTO W/O MICROSCOP Y COLLECTIO 63223 LIAM West VENOUS 1 [facility]IAN[facility]HELLE [facility] VENIPUNCT PSC URE SBSQ 95570 NEPHROLOG [facility] 0 Y THO CARE/DAY ASSOCIATE 35 S MINUTES SBSQ 79109 NEPHROLOG [facility] 0 Y THO CARE/DAY ASSOCIATE 35 S MINUTES SBSQ 94499 [facility] 0 Y THO CARE/DAY ASSOCIATE 15 S MINUTES SBSQ 44936 [facility] 0 Y THO CARE/DAY ASSOCIATE 25 S MINUTES SBSQ 39542 [facility] 0 Y THO CARE/DAY ASSOCIATE 15 S MINUTES SBSQ 06723 NEPHROLOG [facility] 0 Y THO CARE/DAY ASSOCIATE 25 S MINUTES SBSQ 64978 [facility] 0 Y THO CARE/DAY ASSOCIATE 25 S MINUTES HEMODIALY [address] [facility] 0 Y THO PROCEDURE ASSOCIATE W/ S PHYS/QHP EVALUATIO N SBSQ 53407 [facility] 0 Y THO CARE/DAY ASSOCIATE 15 S MINUTES HEMODIALY 71277 [facility] 0 Y THO PROCEDURE ASSOCIATE W/ S PHYS/QHP EVALUATIO N SBSQ 58559 [facility] 0 Y THO CARE/DAY ASSOCIATE 35 S MINUTES SBSQ 03626 [facility] 0 Y THO CARE/DAY ASSOCIATE [address] PELVIS 12405 [place] JAI W/O 0 [place]ICAL [place] [address] [facility] ABDOMEN 0 MEDICAL RON W/[place] [address] [place] MARCE HEAD/BRAI 0 MEDICAL BENNY N W/O IMAGING CONTRAST ASS MATERIAL 3D 93413 [place] [facility] RENDERING 0 MEDICAL EBNNY IMAGING W/INTERP& [place] [address] [facility] MAXILLOFA 0 MEDICAL MEDICAL CIAL W/O IMAG[place] [address] [place] JAI HEAD/BRAI 0 MEDICAL RON N W/O IMAGING CONTRAST ASS MATERIAL 3D 94133 [place] JAI RENDERING 0 MEDICAL RON W/INTERP IMAGING & ASS POSTPROCE SS SUPERVISI ON RADEX 46247 [place] MARCE ANKLE 0 MEDICAL BENNY COMPLETE IMAGING MINIMUM 3 ASS VIEWS RADIOLOGI 66441 [facility] MARCE C 0 MEDICAL BENNY EXAMINATI IMAGING ON KNEE 3 ASS VIEWS RADEX 13740 [facility] MARCE ELBOW 9 MEDICAL BENNY COMPLETE IMAGING MINIMUM 3 ASS VIEWS RADEX 34090 [facility] [place] HAND 9 RADIOLOGY ANA MINIMUM 3 VIEWS RADEX 19077 [facility] [place] FOREARM 2 9 RADIOLOGY ANA VIEWS RADEX 17477 [facility] [place] [facility] WRIST 9 RADIOLOGY ANA COMPLETE MINIMUM 3 VIEWS Encounters Encounter Start End Date Code Location Performer Type Date CRITICAL [facility]. ACCESS 7 7 [facility] EULA OFFICE [address] [facility] S[facility] OUTPATIEN 7 7 ALEXANDER T VISIT 25 PHYSICIAN MINUTES S OFFICE [address] [facility] OUTPATIEN 7 7 ALEXANDER T VISIT 15 PHYSICIAN MINUTES S [facility] ACCESS 7 7 [facility] EULA OFFICE [address] DAIGLE OUTPATIEN 7 7 ALEXANDER T VISIT 15 PHYSICIAN MINUTES S [facility] ACCESS 7 7 [facility] EULA OFFICE [address] [facility] W[facility] OUTPATIEN 7 7 ALEXANDER T VISIT 15 PHYSICIAN MINUTES S OFFICE 88923 [facility] OUTPATIEN 6 6 T VISIT 25 MINUTES OFFICE 69524 [facility] DAINA OUTPATIEN [address] [facility] 10 TH DEPT MINUTES [facility] - 6 6 [facility] OUTPATIEN [facility] T OFFICE 12866 NABIL ASIF MEAGAN OUTPATIEN 6 6 MD NATASHA, T VISIT [facility] 15 MINUTES OFFICE 50951 NABIL GOMES CRI OUTPATIEN 6 6 MD NATASHA, T VISIT [facility] 15 MINUTES [facility]OS[facility] - 6 6 [facility] T OFFICE 48091 [facility] 6 6 [facility] T VISIT [facility] 15 IC CTR MINUTES OFFICE 00196 [facility] 6 6 [facility] T NEW 30 ORTHOPAED MINUTES IC [facility] ACCESS 6 6 [facility] CR[facility]ICAL [facility] ACCESS 6 6 [facility] - 6 6 [facility] INC T OFFICE 99627 NABILANTONIO RHODES OUTPATIEN 6 6 MD NATASHA, T VISIT PSC [address] ACCESS 5 5 [facility] EMERGENCY [address] 5 5 [facility] T VISIT LOW/MODER SEVERITY [facility] - 5 5 [facility] INC T OFFICE 32409 NABIL KAUR ANTaryn OUTPATIEN 5 5 MD NATASHA, T VISIT PSC 10 MINUTES OFFICE 59095 CLARI KAUR BUX ANJ OUTPATIEN 5 5 T NEW 30 MINUTES OFFICE 98145 [facility] HASTINGS OUTPATIEN 5 5 Prince BELLO T VISIT MDPLC 10 MINUTES OFFICE 15378 [facility] SINGLETON OUTPATIEN 5 5 Prince YUEN T VISIT MDPLC 10 MINUTES OFFICE 62160 [facility] MCMANUSPATIALPHONSE 5 5 Prince BROWNING T VISIT MDPLC 10 MINUTES OFFICE 03937 HAR[facility] MCMANUSPATIALPHONSE 4 4 Prince HASTINGS MAT T VISIT MDPLC 10 MINUTES INITIAL 60344 [facility] PREVENTIV 4 4 [facility] E DEPT DEPT MEDICINE NEW PT AGE 18-39YRS OFFICE 50975 [facility]ST[facility] HASTINGS OUTPATIEN 4 4 EUGENIA EUGENIA T VISIT 15 MINUTES HOSPITAL [facility] - 3 3 [facility] OUTPATIEN INC T CRITICAL ST[facility] ACCESS 3 3 [facility] EULA Emergency JINA Mera Flores (ER) 3 12:40 3 13:44 [facility] EMERGENCY 61637 BRITTANY FLORES 3 3 III DAYAN III DAYAN DEPARTMEN T VISIT MODERATE SEVERITY OFFICE 57370 RISON ALL RISON ALL OUTPATIEN 3 3 T VISIT 10 MINUTES OFFICE 28782 RISON ALL RISON ALL OUTPATIEN 3 3 T VISIT 10 MINUTES OFFICE 68587 NEYMAR BLACKMON OUTPATIEN 2 2 NALLELY NALLELY T NEW [address] ACCESS 2 2 [facility]ULA EMERGENCY [address] [facility] 2 2 GABBY SERVIN DEPARTMEN MED CTR T VISIT MODERATE SEVERITY CRITICAL ST. ACCESS 2 2 [facility] EULA OFFICE 43444 BRIANA KAUR OUTPATIEN 2 2 T VISIT [address] [facility] 2 2 GABBY RHODES DEPARTMEN MED CTR T VISIT MODERATE SEVERITY HOSPITAL [facility] - 1 1 [facility] OUTPATIEN INC T OFFICE 04416 LIAM GARCIAFROILAN OUTPATIEN 1 1 PETE JR THO T VISIT CLINIC 15 PSC MINUTES OFFICE 19957 NEW EVIE OUTPATIEN 1 1 JILLIANINGTON JR THO T VISIT CLINIC [address] ACCESS 1 1 [facility]UL[facility] EMERGENCY [address] ST. 1 1 GABBY Sherman VISIT LOW/MODER SEVERITY OFFICE 62252 NEPHROLOG EDIL OUTPATIEN 0 0 Y DAYAN Sherman VISIT ASSOCIATE 15 S MINUTES
--- OUTSIDE RECORDS SUMMARY | 2016-09-16 07:02 | External Medical Summary Rpt ---
Author Author , Organization [employer] Address Unknown Phone Unavailable Care Team Providers Care Specialist Physician Name Role Phone NABIL KAUR MD, PSC, [...] [facility], Unavailable Unavailable [facility] [place] [facility] Unavailable [facility]available [facility] [place] [facility], Unavailable Unavailable [facility] MARCE BENNY, Unavailable Unavailable MARCE BENNY DOERGER KIR, DOERGER Unavailable Unavailable KIR DUFF MEAGAN, DUFF MEAGAN Unavailable Unavailable [facility] Unavailable [place]available [place], [facility] [place] EBACHER MAT, EBACHER [...] HASTINGS Unavailable Unavailable MDPLC, HARMEET HASTINGS [facility] Unavailable Unavailable [facility], [facility] ELISEO CRI, ELISEO CRI Unavailable Unavailable CLARI KAUR MD, CLARI Unavailable Unavailable BUX MD DAIGLE, DAIGLE Unavailable Unavailable JAI RON, JAI Unavailable Unavailable [facility] Unavailable [facility]available [facility], [facility] Unavailable Unavailable [facility], [facility] Unavailable Unavailable [facility], [facility] RISON ALL, RISON ALL Unavailable Unavailable SALIM DAINA, SALIM DAINA Unavailable Unavailable [facility], Unavailable Unavailable [facility], Unavailable Unavailable [facility] Unavailable Unavailable PHYSICIANS, [facility] . MINERAL EULA, Unavailable Unavailable [facility] NATHANIEL SCO, NATHANIEL SCO Unavailable [facility]available [facility] Un[facility] DEPT MICHELLE, [facility] MICHELLE WEHRMAN III DAYAN, Unavailable Unavailable WEHRMAN III DAYAN WEHRMAN III DAYAN, Unavailable Unavailable [facility]AN WILLOBY, WILLOBY Unavailable Unavailable WILLOBY NALLELY, WILLOBY Unavailable Unavailable NALLELY Purpose Continuity of Care Document - 04-04-2009 through 2016 Problems Code Diagnosis DOS Provider Status [id number] EPILEPSY 08-01-2016 . [facility] NOT [facility] INTRACT W/O EULA STATUS EPILEPTICUS H539 UNSPECIFIED 08-01-2016 . VISUAL [facility] DISTURBANCE EULA R51 HEADACHE 08-01-2016 . [facility] EULA R5383 OTHER 07-25-2016 [facility]UE [facility] E54977 OTH 07-09-2016 MIGRAINE [facility] NOT INTRACT PHYSICIANS W/O STATUS MIGRAINOSUS M542 CERVICALGIA 07-09-2016 [facility] R110 NAUSEA 07-04-2016 [facility] [id number] EPISODIC 06-24-2016 TENSION-TYP [facility] E HEADACHE PHYSICIANS NOT INTRACTABLE L570 ACTINIC 03-19-2016 ROBERT KERATOSIS L732 HIDRADENITI 03-19-2016 ROBERT S SUPPURATIVA L930 DISCOID 03-19-2016 ROBERT LUPUS ERYTHEMATOS US Z202 CONTACT 02-08-2016 [facility] WITH DISTRICT EXPOSURE [facility] DEPT INFECT MICHELLE SEXUAL MODE TRANSMS N12001 SPONDYLOSIS 09-19-2015 NABIL KAUR, W/O , PSC MYELOPATH/R ADICULOPATH Y LUMB RGN M5116 INTERVERTEB 09-19-2015 YOLANDA LYON AJAY BETTENCOURT, PSC D/O W/RADICULOP ATHY LUMB RGN I77313 OTHER LONG 09-19-2015 [facility]M [facility] CURRENT INC DRUG THERAPY H70448 OTHER 08-03-2015 [facility] SYNOVITIS L [facility] PSC TENOSYNOVIT IS RIGHT SHOULDER M461 SACROILIITI 07-24-2015 Jaspla LYON MD, PSC ELSEWHERE CLASSIFIED M545 LOW BACK 07-24-2015 [facility] PAIN [facility] INC M791 MYALGIA 07-24-2015 NABIL KAUR MD, PSC M7581 OTHER 07-12-2015 [facility] SHOULDER H LESIONS [facility] RIGHT [facility] SHOULDER N76740 PAIN IN 06-14-2015 ST. RIGHT [facility] SHOULDER EULA E4658ZX UNS INJURY 06-02-2015 ST. 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 (CURRENT) HASTINGS USE OF MDPLC OTHER MEDICATIONS 7238 OTHER 01-21-2014 HARMEET SHETTY HASTINGS AFFECTING MDPLC CERVICAL REGION 2382 NEOPLASM OF 10-06-2013 [facility] TRA UNCERTAIN BEHAVIOR OF SKIN V2502 GENERAL 08-17-2013 E[facility] DEPT INITIATION OT CONTRACEPT MEASURES 7295 PAIN IN 04-19-2013 [facility] SOFT [facility] TISSUES OF INC LIMB 62072 SWELLING OF 04-19-2013 [facility] LIMB [facility] INC 9594 INJURY 04-19-2013 [facility] OTHER AND [facility]OS[facility] UNSPECIFIED INC HAND EXCEPT FINGER 02539 SPRAIN AND 03-22-2013 WEHRMAN III STRAIN OF DAYAN UNSPECIFIED SITE OF HAND 62853 CONTUSION 11-14-2011 ST. OF HAND [facility] EULA 50447 CONTUSION 11-14-2011 ST. OF WRIST [facility] E[facility] 17426 BLISTR 11-14-2011 ST W/EPID LOSS [facility]UE [facility]URN MED CTR UNSPEC SITE HAND 33577 BLISTERS 11-14-2011 ST. 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 BODY SURF [facility] W/3RD DEG EULA BURN<10%/UN S AMT 9492 BLISTERS 11-14-2011 ST W/EPIDERMAL [facility] LOSS DUE MED CTR BURN UNSPEC SITE 9599 INJURY 11-14-2011 RADIOLOGY OTHER AND ASSOCIATES UNSPECIFIED OF NOTH UNSPECIFIED SITE V065 NEED 11-14-2011 ST. PROPHYLACTI [facility] C EULA VACCINATION W/TETANUS-D [facility] 5990 URINARY 11-01-2011 WILLOBY NALLELY TRACT INFECTION SITE NOT SPECIFIED 6235 LEUKORRHEA 11-01-2011 WILLOBY NALLELY NOT SPECIFIED INFECTIVE 99275 SPONDYLOSIS 11-01-2011 WILLOBY NALLELY UNSPEC SITE W/O MENTION MYELOPATHY 496 CHRONIC 09-05-2011 WILLOBY NALLELY AIRWAY OBSTRUCTION NEC 39211 PAIN IN 07-16-2011 ST. JOINT, [facility] LOWER LEG EULA 7245 UNSPECIFIED 06-19-2011 [facility]EN BRE BACKACHE 9597 INJURY 06-19-2011 BRIANA KAUR OTHER&UNSPE CIFIED KNEE LEG ANKLE&FOOT 67892 CONTUSION 06-15-2011 ST OF KNEE [facility] 7231 CERVICALGIA 05-30-2011 W[facility]EN NATASHA 9154 FINGER 05-30-2011 BRIANA KAUR INSECT BITE NONVENOMOUS W/O MENTION INF 4739 UNSPECIFIED 04-22-2011 WILLOBY NALLELY SINUSITIS 490 BRONCHITIS 04-22-2011 WILLOBY NALLELY NOT SPECIFIED ACUTE OR CHRONIC 09551 CHRON 03-21-2011 [facility] TIS W/O LES INC RENL MEDULRY NECROS 32870 ACUT 03-21-2011 [facility] TIS W/O LES INC RENAL MEDULRY NECROS 35657 UNSPECIFIED 03-21-2011 [facility] TIS 5849 ACUTE 04-10-2010 [facility] FAILURE UNSPECIFIED 7880 RENAL COLIC 01-06-2010 [facility] 7840 HEADACHE 12-06-2009 [facility] 7804 DIZZINESS 09-30-2009 [facility] GIDDINESS [facility] 04702 UNSPECIFIED 08-24-2009 [facility] S[facility] MEDICAL ANKLE [facility]AGING [facility] SPRAIN AND STRAIN 9239 CONTUSION 04-11-2009 [facility] UNSPECIFIED IMAGING ASS PART OF [...] DOS Code Location Performer Comment MRI BRAIN 83522 [facility] BRAIN [facility] STEM W/O EULA EULA W/CONTRAS T MATERIAL INJ A9577 [facility] GADOBENAT 7 [facility] E EULA EUL[place] M[place] [address] [facility] HEAD/BRAI 7 [facility] N W/O EULA EULA CONTRAST MATERIAL THERAPEUT 29435 DAIGLE IC 7 MINERAL PROPHYLAC TIC/DX PHYSICIAN INJECTION S SUBQ/IM RADEX 79086 [facility] SPINE 7 [facility] CERVICAL EULA EULA 4 OR 5 VIEWS DESTRUCTI 72576 YESICA ROBERT ON 6 PREMALIGN ANT LESION 1ST IADNA 46918 [facility] DAINA CHLAMYDIA 6 DISTRICT [facility] DEPT TRACHOMAT MICHELLE IS AMPLIFIED PROBE TQ SYPHILIS 30201 [facility] SAL[facility] DAINA TEST 6 DISTRICT NON-TREPO [facility] DEPT NEMAL MICHELLE ANTIBODY QUAL IADNA 81829 KERRI CRAIG DAINA NEISSERIA 6 [facility] DEPT GONORRHOE MICHELLE AE AMPLIFIED PROBE [...] INC READ DC OPT OBV ONLY THERAPEUT 64109 PROFESSIO CROSSFIEL IC PX 1/> 6 [facility] AREAS ASSOC EACH 15 PSC MIN EXERCISES E-STIM G0283 PROFESSIO CROSSFIEL 1/> AREAS 6 [facility] D [facility]O OTH THAN ASSOC WND CARE PSC PART TX PLAN E-STIM G0283 PROFESSIO CROSSFIEL 1/> AREAS 6 [facility] D POLO OTH THAN ASSOC WND CARE PSC PART TX PLAN THERAPEUT 53785 PROFESSIO CROSSFIEL IC PX 1/> 6 [facility] D POLO AREAS ASSOC EACH 15 PSC MIN EXERCISES THERAPEUT 84273 PROFESSIO CROSSFIEL IC PX 1/> 6 [facility] D POLO AREAS ASSOC EACH 15 PSC MIN EXERCISES E-STIM G0283 PROFESSIO CROSSFIEL 1/> AREAS 6 [facility] REHAB D POLO OTH THAN ASSOC WND CARE PSC PART TX PLAN E-STIM G0283 PROFESSIO CROSSFIEL 1/> AREAS 6 NAL REHAB D POLO OTH THAN ASSOC WND CARE PSC PART TX PLAN THERAPEUT 23706 PROFESSIO CROSSFIEL IC PX 1/> 6 [facility] REHAB D POLO AREAS ASSOC EACH 15 PSC MIN EXERCISES THERAPEUT 18994 PROFESSIO PROFESSIO IC PX 1/> 6 NAL REHAB NAL REHAB AREAS ASSOC ASSOC EACH 15 PSC PSC MIN EXERCISES E-STIM G0283 PROFESSIO PROFESSIO 1/> AREAS 6 NAL REHAB NAL REHAB OTH THAN ASSOC ASSOC WND CARE PSC PSC PART TX PLAN E-STIM G0283 PROFESSIO CROSSFIEL 1/> AREAS 6 NAL REHAB D POLO OTH THAN ASSOC WND CARE PSC PART TX PLAN THERAPEUT 58395 PROFESSIO CROSSFIEL IC PX 1/> 6 [facility]AL [facility]HAB D POLO AREAS ASSOC EACH 15 PSC MIN EXERCISES [place] G0463 [facility] OUTPATIEN 6 [facility] T CLIN INC INC VISIT ASSESS & MGMT PT E-STIM G0283 PROFESSIO CROSSFIEL 1/> AREAS 6 NAL REHAB D POLO OTH THAN ASSOC WND CARE PSC PART TX PLAN THERAPEUT 73189 PROFESSIO CROSSFIEL IC PX 1/> 6 NAL REHAB D POLO AREAS ASSOC EACH 15 PSC MIN EXERCISES THERAPEUT 59503 PROFESSIO CROSSFIEL IC PX 1/> 6 NAL REHAB D POLO AREAS ASSOC EACH 15 PSC MIN EXERCISES E-STIM G0283 PROFESSIO CROSSFIEL 1/> AREAS 6 NAL REHAB D POLO OTH THAN ASSOC WND CARE PSC PART TX PLAN E-STIM G0283 PROFESSIO CROSSFIEL 1/> AREAS 6 NAL REHAB D POLO OTH THAN ASSOC WND CARE PSC PART TX PLAN THERAPEUT 67864 PROFESSIO CROSSFIEL IC PX 1/> 6 NAL REHAB D POLO AREAS ASSOC EACH 15 PSC MIN EXERCISES THERAPEUT 62171 PROFESSIO CROSSFIEL IC PX 1/> 6 NAL REHAB D POLO AREAS ASSOC EACH 15 PSC MIN EXERCISES E-STIM G0283 PROFESSIO CROSSFIEL 1/> AREAS 6 NAL REHAB D POLO OTH THAN ASSOC WND CARE PSC PART TX PLAN THERAPEUT 40352 PROFESSIO CROSSFIEL IC PX 1/> 6 NAL REHAB D POLO AREAS ASSOC EACH 15 PSC MIN EXERCISES E-STIM G0283 PROFESSIO CROSSFIEL 1/> AREAS 6 NAL REHAB D POLO OTH THAN ASSOC WND CARE PSC PART TX PLAN E-STIM G0283 PROFESSIO CROSSFIEL 1/> AREAS 6 NAL REHAB D POLO OTH THAN ASSOC WND CARE PSC PART TX PLAN THERAPEUT 40592 PROFESSIO CROSSFIEL IC PX 1/> 6 NAL REHAB D POLO AREAS ASSOC EACH 15 PSC MIN EXERCISES THERAPEUT 97811 PROFESSIO PROFESSIO IC PX 1/> 6 NAL REHAB NAL REHAB AREAS ASSOC ASSOC EACH 15 PSC PSC MIN EXERCISES E-STIM G0283 PROFESSIO CROSSFIEL 1/> AREAS 6 NAL REHAB D POLO OTH THAN ASSOC WND CARE PSC PART TX PLAN E-STIM G0283 PROFESSIO CROSSFIEL 1/> AREAS 6 NAL REHAB D POLO OTH THAN ASSOC WND CARE PSC PART TX PLAN PHYSICAL 60598 PROFESSIO CROSSFIEL THERAPY 6 NAL REHAB D POLO EVALUATIO ASSOC N PSC THERAPEUT 69514 PROFESSIO CROSSFIEL IC PX 1/> 6 NAL REHAB D POLO AREAS ASSOC EACH 15 PSC MIN EXERCISES RADEX 57209 [facility] COMPLETE EULA EULA MINIMUM 2 VIE[place] [address] [facility] U[facility] 6 EXTREMITY ASSOCIATE W/O S OF [facility] G0463 [facility] OUTPATIEN 6 [facility] T CLIN INC INC VISIT ASSESS & [place] NJX [address]65 NABIL MICHELLEFF MEAGAN DX/THER 5 MD NATASHA, SBST PSC EPIDURAL/ SUBARACH LUMBAR/SA CRAL LOCM Q9966 [facility] 200-299 5 [facility] MG/ML INC INC IODINE [place] IN[place] [address] CLARI KAUR BUX ANJ JOINT 5 ARTHRGRPH Y&/ANES/S TEROID W/DICK DRUG SCR G0434 HARMEET GA NOT 4 Prince HASTINGS CHROMATOG MDPLC MDPLC RAPHIC; ANY NUMBER PT ENC DRUG SCR G0434 HARMEET EBACHER NOT 4 Prince YUEN CHROMATOG MDPLC RAPHIC; ANY NUMBER PT ENC EXCISION 00294 ATKINS ATKINS MALIGNANT 4 TRA TRA LESION F/E/E/N/L 2.1-3.0 CM DRUG SCR G0434 HASTINGS HASTINGS NOT 4 EUGENIA EUGENIA CHROMATOG RAPHIC; ANY NUMBER PT ENC MRI UPPER 86043 MERARAMÓN TESFA[facility] 3 [facility] EXTREMITY INC INC OTH THAN JT W/O CONTR MATRL RADEX [address] [facility] [facility] 3 [facility] EULA EULA [facility] RINGERS J7120 [facility]ST[facility] LACTATE 2 EUGENIA EUGENIA INFUSION UP TO 1000 CC LOCM Q9967 [facility] 300-399 2 EUGENIA EUGENIA MG/ML IODINE CONCENTRA TION PER ML DISKOGRAP 40881 [facility] HASTINGS Y LUMBAR 2 EUGENIA EUGENIA RS&I MODERATE 54452 [facility] SEDATJ 2 EUGENIA EUGENIA SAME PHYS/QHP 5/>YRS INIT 30 MIN MODERATE 03009 [facility] SEDATJ 2 EUGENIA EUGENIA SAME PHYS/QHP 5/>YRS INIT 30 MIN DISKOGRAP 72417 [facility] Y LUMBAR 2 EUGENIA EUGENIA RS&I LOCM Q9967 [facility] 300-399 2 EUGENIA EUGENIA MG/ML IODINE CONCENTRA TION PER ML INJECTION 74094 [facility] HASTINGS PX 2 EUGENIA EUGENIA DISCOGRAP [...] MG/ML IODINE CONCENTRA TION PER ML MODERATE 36482 [facility] SEDATJ 2 EUGENIA EUGENIA SAME PHYS/QHP 5/>YRS INIT 30 MIN NJX 04309 [facility] ANES&/STR 2 EUGENIA EUGENIA D W/IMG TFRML EDRL LMBR/SAC EA LV NJX 47207 [facility] ANES&/STR 2 EUGENIA EUGENIA D W/IMG TFRML EDRL LMBR/SAC EA LV INJECTION J1030 [facility] 2 EUGENIA BLELO METHYLPRE DNISOLONE ACETATE 40 MG TETANUS & 88633 [facility] 2 [facility] DIPHTHERI EULA EULA A TOXOIDS ADSORBED 7/>YR IM IM ADM 99803 [facility] PRQ ID 2 [facility] SUBQ/IM EULA EULA NJXS 1 VACCINE RADEX 22126 [facility] HAND 2 [facility] MINIMUM 3 EULA EULA VIEWS RADEX 79595 [facility] WRIST 2 [facility] COMPLETE EULA EULA MINIMUM 3 VIEWS FLUOR 11103 RADIOLOGY RADIOLOGY NEEDLE/CA 2 TH ASSOCIATE ASSOCIATE SPINE/PAR S OF [facility] S OF NOTH ASPINAL DX/THER ADDON INJ J0702 RADIOLOGY DOERGER BETAMETHA 2 KIR SONE ASSOCIATE ACETATE & S OF [facility] PHOSPHATE 3 MG MRI ANY 94358 [facility] JT LOWER 2 [facility] EXTREM EULA EULA W/O CONTRAST MATRL MRI 40209 [facility] SPINAL 2 [facility] CANAL EULA EULA LUMBAR W/O CONTRAST MATERIAL RADIOLOGI 25574 RADIOLOGY SARA Ralph EXAM 2 III SHALA KNEE ASSOCIATE COMPLETE S [place] NOT 4/[place] [address] [facility] MARCE RETROPERI 1 MEDICAL BENNY TONEAL IMAGING REAL TIME ASS W/IMAGE COMPLETE URNLS DIP 91147 LIAM GARCIA 1 PETE JR THO STICK/TAB CLINIC LET RGNT PSC AUTO W/O MICROSCOP Y URNLS DIP 77568 LIAM GARCIA 1 JILLIAN[place] JR THO STICK/TAB CLINIC LET RGNT PSC AUTO W/O MICROSCOP Y COLLECTIO 01111 LIAM West VENOUS 1 [facility] VENIPUNCT PSC URE SBSQ 25217 NEPHROLOG [facility] 0 Y THO CARE/DAY ASSOCIATE 35 S MINUTES SBSQ 32121 NEPHROLOG [facility] 0 Y THO CARE/DAY ASSOCIATE 35 S MINUTES SBSQ 32720 [facility]ARE/DAY ASSOCIATE 15 S MINUTES SBSQ 06031 [facility] 0 Y THO CARE/DAY ASSOCIATE 25 S MINUTES SBSQ 64697 [facility] 0 Y THO CARE/DAY ASSOCIATE 15 S MINUTES SBSQ 08492 NEPHROLOG [facility] 0 Y THO CARE/DAY ASSOCIATE 25 S MINUTES SBSQ 68345 [facility] 0 Y THO CARE/DAY ASSOCIATE 25 S MINUTES HEMODIALY 85070 NEPHROLOG [facility] 0 Y THO PROCEDURE ASSOCIATE W/ S PHYS/QHP EVALUATIO N SBSQ 68982 [facility] 0 Y THO CARE/DAY ASSOCIATE 15 S MINUTES HEMODIALY 04802 [facility] Y THO PROCEDURE ASSOCIATE W/ S PHYS/QHP EVALUATIO N SBSQ 56203 [facility] 0 Y THO CARE/DAY ASSOCIATE 35 S MINUTES SBSQ 31732 [facility] 0 Y THO CARE/DAY ASSOCIATE [address] PELVIS 38976 [facility] JAI W/O 0 [place]ICAL [place] [address] [facility] ABDOMEN 0 MEDICAL RON W/[place] [address] [facility] MARCE HEAD/BRAI 0 MEDICAL BENNY N W/O IMAGING CONTRAST ASS MATERIAL 3D 58324 [place] MARCE RENDERING 0 MEDICAL BENNY IMAGING W/INTERP& [place] [address] [facility] MAXILLOFA 0 MEDICAL MEDICAL CIAL W/O IMAG[place] [address] [place] JAI HEAD/BRAI 0 MEDICAL RON N W/O IMAGING CONTRAST ASS MATERIAL 3D 48606 [place] JAI RENDERING 0 MEDICAL RON W/INTERP IMAGING & ASS POSTPROCE SS SUPERVISI ON RADEX 59832 [place] MARCE ANKLE 0 MEDICAL BENNY COMPLETE IMAGING MINIMUM 3 ASS VIEWS RADIOLOGI 26844 [facility] C 0 MEDICAL BENNY EXAMINATI IMAGING ON KNEE 3 ASS VIEWS RADEX 24479 [facility] MARCE ELBOW 9 MEDICAL BENNY COMPLETE IMAGING MINIMUM 3 ASS VIEWS RADEX 19973 [facility] [place] [facility] HAND 9 RADIOLOGY ANA MINIMUM 3 VIEWS RADEX 16310 [facility] [place] [facility] FOREARM 2 9 RADIOLOGY ANA VIEWS RADEX 46072 [facility] [place] [facility] WRIST 9 RADIOLOGY ANA COMPLETE MINIMUM 3 VIEWS Encounters Encounter Start End Date Code Location Performer Type Date CRITICAL [facility]. ACCESS 7 7 [facility] EULA OFFICE [address] [facility] S[facility] OUTPATIEN 7 7 MINERAL T VISIT 25 PHYSICIAN MINUTES S OFFICE [address]38[address] [facility] OUTPATIEN 7 7 MINERAL T VISIT 15 PHYSICIAN MINUTES S [facility] ACCESS 7 7 [facility] OFFICE [address] DAIGLE OUTPATIEN 7 7 MINERAL T VISIT 15 PHYSICIAN MINUTES S [facility] ACCESS 7 7 [facility] OFFICE [address] [facility] WARREN OUTPATIEN 7 7 MINERAL T VISIT 15 PHYSICIAN MINUTES S OFFICE 73989 [facility] ROBERT OUTPATIEN 6 6 T VISIT 25 MINUTES OFFICE 64707 [facility] DAINA OUTPATIEN 6 6 [facility] T [facility] 10 TH DEPT MINUTES [facility] - 6 6 [facility] OUTPATIEN [facility] T OFFICE 29457 NABIL ASIF MEAGAN OUTPATIEN 6 6 MD NATASHA, T VISIT [facility] 15 MINUTES OFFICE 51885 NABIL GOMES CRI OUTPATIEN 6 6 MD NATASHA, T VISIT PSC 15 MINUTES HOSPITAL [facility] - 6 6 [facility] OUTPATIEN INC T OFFICE 71860 [facility] 6 6 [facility] D[facility] T VISIT ORTHOPAED 15 IC CTR MINUTES OFFICE 28681 [facility] HO[facility]IT[facility] OUTPATIEN 6 6 [facility] D[facility] T NEW 30 ORTHOPAED MINUTES IC CTR CRITICAL [facility] ACCESS [address] [facility] 6 6 [facility] MERA - 6 6 [facility] OUTPATIEN INC T OFFICE 48475 NABILANTONIO RHODES OUTPATIEN 6 6 MD NATASHA, T VISIT PSC [address] ACCESS [address] [facility] EMERGENCY [address] 5 5 [facility] T VISIT LOW/MODER SEVERITY [place] [facility] - 5 5 [facility] OUTPATIEN INC T OFFICE 93420 NABIL KAUR ANTaryn OUTPATIEN 5 5 MD NATASHA, T VISIT PSC 10 MINUTES OFFICE 11332 CLARI KAUR BUX ANJ OUTPATIEN 5 5 T NEW 30 MINUTES OFFICE 11798 HAR[facility] HASTINGS OUTPATIEN 5 5 Prince BELLO T VISIT MDPLC 10 MINUTES OFFICE 10985 HARMEET SINGLETON OUTPATIEN 5 5 Prince YUEN T VISIT MDPLC 10 MINUTES OFFICE 71973 HARMEET MCMANUSPATIALPHONSE 5 5 Prince BROWNING T VISIT MDPLC 10 MINUTES OFFICE 36041 HARMEET MCMANUSPATIALPHONSE 4 4 Prince HASTINGS MAT T VISIT MDPLC 10 MINUTES INITIAL 21382 [facility] [place] E[facility] CO PREVENTIV 4 4 HEALTH HEALTH E DEPT DEPT MEDICINE NEW PT AGE 18-39YRS OFFICE 13490 HASTINGS HASTINGS OUTPATIEN 4 4 EUGENIA EUGENIA T VISIT 15 MINUTES HOSPITAL [facility] - 3 3 [facility] OUTPATIEN INC T CRITICAL ST. ACCESS 3 3 [facility] Emergency JINA Mera Flores (ER) 3 12:40 3 13:44 [facility] EMERGENCY 40949 BRITTANY FLORES 3 3 III DAYAN III DAYAN DEPARTMEN T VISIT MODERATE SEVERITY OFFICE 72147 RISON ALL RISON ALL OUTPATIEN 3 3 T VISIT 10 MINUTES OFFICE 53280 [facility] RISON ALL OUTPATIEN 3 3 T VISIT 10 MINUTES OFFICE 98174 NEYMAR BLACKMON OUTPATIEN 2 2 NALLELY NALLELY T NEW [address] ACCESS 2 2 [facility] EMERGENCY [address] [facility] 2 2 [facility] SERVIN DEPARTMEN MED CTR T VISIT MODERATE SEVERITY CRITICAL ST. ACCESS 2 2 [facility] OFFICE 83349 BRIANA KAUR OUTPATIEN 2 2 T VISIT [address] [facility] 2 2 GABBY RHODES DEPARTMEN MED CTR T VISIT MODERATE SEVERITY [facility] - 1 1 [facility] T OFFICE 05935 LIAM GARCIAFROILAN OUTPATIEN 1 1 PETE JR [facility] T VISIT CLINIC 15 PSC MINUTES OFFICE [id number] [place] OUTPATIEN 1 1 [place] JR [facility] CLINIC [address] ACCESS 1 1 [facility] EMERGENCY [address]141 ST. 1 1 [place] VISIT LOW/MODER SEVERITY OFFICE 59550 NEPHROLOG EDIL OUTPATIEN 0 0 Y DAYAN Sherman VISIT ASSOCIATE 15 S MINUTES
--- OUTSIDE RECORDS SUMMARY | 2016-09-16 07:04 | External Medical Summary Rpt ---
Author Author , Organization [employer] Address Unknown Phone Unavailable Care Team Providers Care Manager Managed Backup Services Name Role Phone NABIL KAUR MD, PSC, [...] [facility] Unavailable Unavailable [facility], [facility] Unavailable Unavailable [facility], Unavailable Unavailable [facility] MARCE BENNY, Unavailable Unavailable MARCE BENNY DOERGER KIR, DOERGER Unavailable Unavailable KIR DUFF MEAGAN, DUFF MEAGAN Unavailable Unavailable [facility], [facility] Unavailable Unavailable [place], [facility] SPENCER EBACHER MAT, EBACHER [...] DANYELLE HARMEET HASTINGS Unavailable Unavailable MDPLCHARMEET [facility]PLC [facility] Unavailable Unavailable [facility], [facility] ELISEO CRI, ELISEO CRI Unavailable Unavailable CLARI KAUR MD, CLARI Unavailable Unavailable NATASHA DAIGLE, DAIGLE Unavailable Unavailable JAI VELASQUEZ, JAI Unavailable Unavailable [facility] Unavailable [facility]available [facility], [facility] Unavailable Unavailable [facility], [facility] Unavailable Unavailable OF NOT, [facility] RISON ALL, RISON ALL Unavailable Unavailable SALIM DAINA, SALIM DAINA Unavailable Unavailable [facility], Unavailable Unavailable [facility], Unavailable Unavailable [facility] Unavailable Unavailable PHYSICIANS, [facility] . CHLOE EULA, Unavailable Unavailable [facility] EULA NATHANIEL SCO, NATHANIEL SCO Unavailable Unavailable [facility] Unavailable Unavailable DEPT MICHELLE, [facility] DEPT MICHELLE WEHRMAN III DAYAN, Unavailable Unavailable WEHRMAN III DAYAN WEHRMAN III DAYAN, Unavailable Unavailable WEHRMAN III DAYAN WILLOBY, WILLOBY Unavailable Unavailable WILLOBY NALLELY, WILLOBY Unavailable Unavailable NALLELY Purpose Continuity of Care Document - 04-04-2009 through 2016 Problems Code Diagnosis DOS Provider Status [id number] EPILEPSY 08-01-2016 [facility] NOT GABBY INTRACT W/O EULA STATUS EPILEPTICUS H539 UNSPECIFIED 08-01-2016 . VISUAL GABBY DISTURBANCE EULA R51 HEADACHE 08-01-2016 . GABBY EULA R5383 OTHER 07-25-2016 [facility] M30173 OTH 07-09-2016 MIGRAINE GABBY NOT INTRACT PHYSICIANS W/O STATUS MIGRAINOSUS M542 CERVICALGIA 07-09-2016 [facility] PHYSICIANS R110 NAUSEA 07-04-2016 [facility] PHYSICIANS T64505 EPISODIC 06-24-2016 TENSION-TYP GABBY E HEADACHE PHYSICIANS NOT INTRACTABLE L570 ACTINIC 03-19-2016 ROBERT KERATOSIS L732 HIDRADENITI 03-19-2016 ROBERT S SUPPURATIVA L930 DISCOID 03-19-2016 ROBERT LUPUS ERYTHEMATOS US Z202 CONTACT 02-08-2016 [facility] WITH [facility] EXPOSURE [facility] DEPT INFECT MICHELLE SEXUAL MODE TRANSMS D23451 SPONDYLOSIS 09-19-2015 NABIL KAUR, W/O , PSC MYELOPATH/R ADICULOPATH Y LUMB RGN M5116 INTERVERTEB 09-19-2015 YOLANDA LYON MD, PSC D/O W/RADICULOP ATHY LUMB RGN Y05090 OTHER LONG 09-19-2015 [facility]M [facility] CURRENT INC DRUG THERAPY B66425 OTHER 08-03-2015 [facility] SY[facility]OV[facility]IS [facility] PSC TENOSYNOVIT IS RIGHT SHOULDER M461 SACROILIITI 07-24-2015 Jaspal LYON MD, PSC ELSEWHERE CLASSIFIED M545 LOW BACK 07-24-2015 [facility] PAIN [facility] INC M791 MYALGIA 07-24-2015 NABIL KAUR MD, PSC M7581 OTHER 07-12-2015 [facility] SHOULDER H LESIONS [facility] RIGHT CTR SHOULDER J62094 PAIN IN 06-14-2015 ST. RIGHT GABBY SHOULDER EULA [id number] UNS INJURY 06-02-2015 ST. 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 7244 THORACIC/ASHLEY 10-24-2014 CLARI KAUR MBOSACRAL NEURITIS/RA DICULITIS UNSPEC 89287 DISPLCMT 07-26-2014 HAMREET Morrison LUMBAR HASTINGS INTERVERT MDPLC DISC W/O MYELOPATHY 7213 LUMBOSACRAL 06-27-2014 HARMEET HASTINGS SPONDYLOSIS MDPLC WITHOUT MYELOPATHY 40369 MORBID 04-19-2014 HARMEET Morrison OBESITY HASTINGS MDPLC V5869 LONG-TERM 04-19-2014 HARMEET Morrison (CURRENT) DARLING USE OF MDPLC OTHER MEDICATIONS 7238 OTHER 01-21-2014 HARMEET Morrison SYNDROMES HASTINGS AFFECTING MDPLC CERVICAL REGION 2382 NEOPLASM OF 10-06-2013 [place] TRA UNCERTAIN BEHAVIOR OF SKIN V2502 GENERAL 08-17-2013 [facility] INITIATION [facility] CONTRACEPT MEASURES 7295 PAIN IN 04-19-2013 [facility] SOFT [facility] TISSUES OF INC LIMB 12422 SWELLING OF 04-19-2013 [facility] LIMB [facility] INC 9594 INJURY 04-19-2013 [facility] OTHER AND [facility] UNSPECIFIED INC HAND EXCEPT FINGER 09175 SPRAIN AND 03-22-2013 WEHRMAN III STRAIN OF DAYAN UNSPECIFIED SITE OF HAND 27605 CONTUSION 11-14-2011 ST. OF HAND GABBY EULA 12571 CONTUSION 11-14-2011 ST. OF WRIST GABBY EULA 66266 BLISTR 11-14-2011 ST W/EPID LOSS GABBY DUE BURN MED CTR UNSPEC SITE HAND 19049 BLISTERS 11-14-2011 ST. 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 BODY SURF GABBY W/3RD DEG EULA BURN<10%/UN S AMT 9492 BLISTERS 11-14-2011 ST W/EPIDERMAL GABBY LOSS DUE MED CTR BURN UNSPEC SITE 9599 INJURY 11-14-2011 RADIOLOGY OTHER AND ASSOCIATES UNSPECIFIED OF NOTH UNSPECIFIED SITE V065 NEED 11-14-2011 ST. PROPHYLACTI [facility]LOE C EULA VACCINATION W/TETANUS-D [facility] 5990 URINARY 11-01-2011 WILLOBY NALLELY TRACT INFECTION SITE NOT SPECIFIED 6235 LEUKORRHEA 11-01-2011 WILLOBY NALLELY NOT SPECIFIED INFECTIVE 32485 SPONDYLOSIS 11-01-2011 WILLOBY NALLELY UNSPEC SITE W/O MENTION MYELOPATHY 496 CHRONIC 09-05-2011 WILLOBY NALLELY AIRWAY OBSTRUCTION NEC 72938 PAIN IN 07-16-2011 ST. JOINT, GABBY LOWER LEG EULA 7245 UNSPECIFIED 06-19-2011 [facility]EN NATASHA BACKACHE 9597 INJURY 06-19-2011 BRIANA KAUR OTHER&UNSPE CIFIED KNEE LEG ANKLE&FOOT 18346 CONTUSION 06-15-2011 ST OF KNEE GABBY MED CTR 7231 CERVICALGIA 05-30-2011 W[facility]EN NATASHA 9154 FINGER 05-30-2011 [facility]EN NATASHA INSECT BITE NONVENOMOUS W/O MENTION INF 4739 UNSPECIFIED 04-22-2011 WILLOBY NALLELY SINUSITIS 490 BRONCHITIS 04-22-2011 WILLOBY NALLELY NOT SPECIFIED ACUTE OR CHRONIC 32309 CHRON 03-21-2011 [facility] TIS W/O LES INC RENL MEDULRY NECROS 98528 ACUT 03-21-2011 [facility] TIS W/O LES INC RENAL MEDULRY NECROS 65103 UNSPECIFIED 03-21-2011 [facility] TIS 5849 ACUTE 04-10-2010 [facility] FAILURE UNSPECIFIED 7880 RENAL COLIC 01-06-2010 [facility] 7840 HEADACHE 12-06-2009 [facility] 7804 DIZZINESS 09-30-2009 [facility] GIDDINESS [facility] 14321 UNSPECIFIED 08-24-2009 [facility] SITE OF MEDICAL ANKLE [facility]AGING ASS SPRAIN AND STRAIN 9239 CONTUSION 04-11-2009 [facility] UNSPECIFIED IMAGING ASS PART OF UPPER [...] DOS Code Location Performer Comment MRI BRAIN 07122 [facility] BRAIN 7 [facility] STEM W/O EULA EULA W/CONTRAS T MATERIAL INJ A[address] [facility] GADOBENAT 7 [facility] E EULA EUL[place] M[place] [address] [facility] ST. HEAD/BRAI 7 [facility] N W/O EULA EULA CONTRAST MATERIAL RADEX 36093 [facility] SPINE 7 [facility] CERVICAL EULA EULA 4 OR 5 VIEWS THERAPEUT 34071 DAIGLE IC 7 CHLOE PROPHYLAC TIC/DX PHYSICIAN INJECTION S SUBQ/IM DESTRUCTI 04279 YESICA ROBERT ON 6 PREMALIGN ANT LESION 1ST SYPHILIS 60899 [facility] SALIM DAINA TEST 6 DISTRICT NON-TREPO [facility] DEPT NEMAL MICHELLE ANTIBODY QUAL [facility] 99410 [facility] SAL[facility] DAINA NEISSERIA 6 [facility] DEPT GONORRHOE MICHELLE AE AMPLIFIED PROBE TQ [facility] 52350 [facility] SALIM DAINA CHLAMYDIA 6 [facility] DEPT TRACHOMAT MICHELLE IS AMPLIFIED PROBE [facility] G0463 [facility] OUTPATIEN 6 [facility] T CLIN INC INC VISIT ASSESS & MGMT PT DRUG TST G0477 [facility] PRESUMP;C 6 [facility] PBL BEING INC INC READ DC OPT OBV ONLY DRUG TEST G0481 [facility] DEFINITV [address] ID INC INC METH P DAY 8-14 DRUG CL THERAPEUT 52471 PROFESSIO CROSSFIEL IC PX 1/> 6 NAL REHAB D POLO AREAS ASSOC EACH 15 PSC MIN EXERCISES E-STIM G0283 PROFESSIO CROSSFIEL 1/> AREAS 6 [facility] POLO OTH THAN ASSOC WND CARE PSC PART TX PLAN THERAPEUT 82015 PROF[facility] CROSSFIEL IC PX 1/> 6 [facility] AREAS ASSOC EACH 15 PSC MIN EXERCISES E-STIM G0283 PROFESSIO CROSSFIEL 1/> AREAS 6 [facility] REHAB D POLO OTH THAN ASSOC WND CARE PSC PART TX PLAN E-STIM G0283 PROFESSIO CROSSFIEL 1/> AREAS 6 NAL REHAB D POLO OTH THAN ASSOC WND CARE PSC PART TX PLAN THERAPEUT 85905 PROFESSIO CROSSFIEL IC PX 1/> 6 NAL REHAB D POLO AREAS ASSOC EACH 15 PSC MIN EXERCISES THERAPEUT 78052 PROFESSIO CROSSFIEL IC PX 1/> 6 NAL REHAB D POLO AREAS ASSOC EACH 15 PSC MIN EXERCISES E-STIM G0283 PROFESSIO CROSSFIEL 1/> AREAS 6 NAL REHAB D POLO OTH THAN ASSOC WND CARE PSC PART TX PLAN E-STIM G0283 PROFESSIO PROFESSIO 1/> AREAS 6 NAL REHAB NAL REHAB OTH THAN ASSOC ASSOC WND CARE PSC PSC PART TX PLAN THERAPEUT 56718 PROFESSIO PROFESSIO IC PX 1/> 6 NAL REHAB NAL REHAB AREAS ASSOC ASSOC EACH 15 PSC PSC MIN EXERCISES THERAPEUT 67222 PROFESSIO CROSSFIEL IC PX 1/> 6 NAL [...] WND CARE PSC PART TX PLAN THERAPEUT 69119 PROFESSIO CROSSFIEL IC PX 1/> 6 NAL REHAB D POLO AREAS ASSOC EACH 15 PSC MIN EXERCISES THERAPEUT 08175 PROFESSIO CROSSFIEL IC PX 1/> 6 NAL REHAB D POLO AREAS ASSOC EACH 15 PSC MIN EXERCISES E-STIM G0283 PROFESSIO CROSSFIEL 1/> AREAS 6 NAL REHAB D POLO OTH THAN ASSOC WND CARE PSC PART TX PLAN THERAPEUT 00752 PROFESSIO CROSSFIEL IC PX 1/> 6 NAL REHAB D POLO AREAS ASSOC EACH 15 PSC MIN EXERCISES E-STIM G0283 PROFESSIO CROSSFIEL 1/> AREAS 6 NAL REHAB D POLO OTH THAN ASSOC WND CARE PSC PART TX PLAN THERAPEUT 54306 PROFESSIO CROSSFIEL IC PX 1/> 6 NAL REHAB D POLO AREAS ASSOC EACH 15 PSC MIN EXERCISES E-STIM G0283 PROFESSIO CROSSFIEL 1/> AREAS 6 NAL REHAB D POLO OTH THAN ASSOC WND CARE PSC PART TX PLAN E-STIM G0283 PROFESSIO CROSSFIEL 1/> AREAS 6 NAL REHAB D POLO OTH THAN ASSOC WND CARE PSC PART TX PLAN THERAPEUT 07406 PROFESSIO CROSSFIEL IC PX 1/> 6 NAL REHAB D POLO AREAS ASSOC EACH 15 PSC MIN EXERCISES THERAPEUT 20004 PROFESSIO CROSSFIEL IC PX 1/> 6 NAL REHAB D POLO AREAS ASSOC EACH 15 PSC MIN EXERCISES E-STIM G0283 PROFESSIO CROSSFIEL 1/> AREAS 6 NAL REHAB D POLO OTH THAN ASSOC WND CARE PSC PART TX PLAN E-STIM G0283 PROFESSIO CROSSFIEL 1/> AREAS 6 NAL REHAB D POLO OTH THAN ASSOC WND CARE PSC PART TX PLAN THERAPEUT 70896 PROFESSIO PROFESSIO IC PX 1/> 6 NAL REHAB NAL REHAB AREAS ASSOC ASSOC EACH 15 PSC PSC MIN EXERCISES PHYSICAL 09386 PROFESSIO CROSSFIEL THERAPY 6 NAL REHAB D POLO EVALUATIO ASSOC N PSC THERAPEUT 05604 PROFESSIO CROSSFIEL IC PX 1/> 6 NAL REHAB D POLO AREAS ASSOC EACH 15 PSC MIN EXERCISES E-STIM G0283 PROFESSIO CROSSFIEL 1/> AREAS 6 NAL REHAB D POLO OTH THAN ASSOC WND CARE PSC PART TX PLAN RADEX [address] SHOULDER 6 [facility] COMPLETE EULA EULA MINIMUM 2 VIEWS [place] ANY [address]38 RADIOLOGY NATHANIEL SCO JT UPPER 6 EXTREMITY ASSOCIATE W/O S OF NOTH CONTRAST [facility] G0463 [facility] OUTPATIEN 6 [facility] T CLIN INC INC VISIT ASSESS & MGMT PT LOCM Q9966 [facility] 200-299 5 [facility] MG/ML INC INC IODINE [place]CENTRA [place] NJX 25696 NABIL ASIF MEAGAN DX/THER 5 MD NATASHA, SBST PSC EPIDURAL/ SUBARACH L[place]BAR/[place] IN[place] [address] MADAR BUX BUX ANJ JOINT 5 ARTHRGRP Y&/ANES/S TEROID W/DICK DRUG SCR G0434 HARMEET GA NOT 4 Prince HASTINGS CHROMATOG MDPLC MDPLC RAPHIC; ANY NUMBER PT ENC DRUG SCR G0434 HARMEET EBACHER NOT 4 Prince YUEN CHROMATOG MDPLC RAPHIC; ANY NUMBER PT ENC EXCISION 99350 ATKINS ATKINS MALIGNANT 4 TRA TRA LESION F/E/E/N/L 2.1-3.0 CM DRUG SCR G0434 DARLING VALIENTE 4 EUGENIA EUGENIA CHROMATOG RAPHIC; ANY NUMBER PT ENC MRI UPPER 36745 [facility] 3 [facility] EXTREMITY INC INC OTH THAN JT W/O CONTR MATRL RADEX [address] HAND 3 GABBY PIERRE MINIMUM 3 EULA EULA VIEWS LOC Q9967 DARLING HASTINGS 300-399 2 EUGENIA EUGENIA MG/ML IODINE CONCENTRA TION PER ML DISKOGRAP 90186 DALRING HASTINGS Y LUMBAR 2 EUGENIA EUGENIA RS&I MODERATE 72656 DARLING HASTINGS SEDATJ 2 EUGENIA EUGENIA SAME PHYS/QHP 5/>YRS INIT 30 MIN RINGERS J7120 DARLING HASTINGS LACTATE 2 EUGENIA EUGENIA INFUSION UP TO 1000 CC RINGERS J7120 DARLING HASTINGS LACTATE 2 EUGENIA EGUENIA INFUSION UP TO 1000 CC MODERATE 92015 DARLING HASTINGS SEDATJ 2 EUGENIA EUGENIA SAME PHYS/QHP 5/>YRS INIT 30 MIN DISKOGRAP 82947 DARLING HASTINGS Y LUMBAR 2 EUGENIA EUGENIA RS&I LOCM Q9967 DARLING HASTINGS 300-399 2 EUGENIA EUGENIA MG/ML IODINE CONCENTRA TION PER ML INJECTION 33437 D[facility] HASTINGS PX 2 EUGENIA EUGENIA DISCOGRAP HY EACH LEVEL LUMBAR LOCM Q9967 DARLING HASTINGS 300-399 2 EUGENIA EUGENIA MG/ML IODINE CONCENTRA TION PER ML MODERATE 90489 DARLING HASTINGS SEDATJ 2 EUGENIA EUGENIA SAME PHYS/QHP 5/>YRS INIT 30 MIN NJX 15995 DARLING HASTINGS ANES&/STR 2 EUGENIA EUGENIA D [...] EUGENIA METHYLPRE DNISOLONE ACETATE 40 MG NJX 77846 HASTINGS HASTINGS ANES&/STR 2 EUGENIA EUGENIA D W/IMG TFRML EDRL LMBR/SAC EA LV RADEX [address] HAND 2 GABBY GABBY MINIMUM 3 EULA EULA VIEWS RADEX [address] WRIST 2 GABBY GABBY COMPLETE EULA EULA MINIMUM 3 VIEWS [place] ADM [address] PRQ ID 2 GABBY GABBY SUBQ/IM EULA EULA NJXS 1 VACCINE TETANUS & 68940 [facility] ST. 2 GABBY GABBY DIPHTHERI EULA EULA A TOXOIDS ADSORBED 7/>YR IM FLUOR 17911 RAD[facility] RADIOLOGY NEEDLE/CA 2 ASSOCIATE ASSOCIATE SPINE/PAR S OF [facility] S OF NOT ASPINAL DX/THER ADDON INJ J0702 RADIOLOGY DOERGER BETAMETHA 2 KIR SONE ASSOCIATE ACETATE & S OF [facility] PHOSPHATE 3 MG MRI ANY [address] JT LOWER 2 GABBY GABBY EXTREM EULA EULA W/O CONTRAST MATRL MRI [address] SPINAL 2 GABBY GABBY CANAL EULA EULA LUMBAR W/O CONTRAST MATERIAL RADIOLOGI 73985 RADIOLOGY SARA Ralph EXAM 2 III SHALA KNEE ASSOCIATE COMPLETE S [place]H 4/[place] [address] [facility] RETROPERI 1 MEDICAL BENNY TONEAL IMAGING REAL TIME ASS W/IMAGE COMPLETE URNLS DIP 52753 [facility] 1 [place] JR THO STICK/TAB CLINIC LET RGNT PSC AUTO W/O MICROSCOP Y URNLS DIP 80284 [facility] 1 [place] JR THO STICK/TAB CLINIC LET RGNT PSC AUTO W/O MICROSCOP Y COLLECTIO 09604 [facility] N [facility] VENIP[facility] PSC URE SBSQ 32691 [facility] 0 Y THO CARE/DAY ASSOCIATE 35 S MINUTES SBSQ 37242 NEPHROLOG [facility] 0 Y THO CARE/DAY ASSOCIATE 35 S MINUTES SBSQ 34905 [facility] 0 Y THO CARE/DAY ASSOCIATE 15 S MINUTES SBSQ 51202 [facility] 0 Y THO CARE/DAY ASSOCIATE 25 S MINUTES SBSQ 39997 [facility] 0 Y THO CARE/DAY ASSOCIATE 15 S MINUTES SBSQ 88475 [facility] 0 Y THO CARE/DAY ASSOCIATE 25 S MINUTES SBSQ 35967 [facility] 0 Y THO CARE/DAY ASSOCIATE 25 S MINUTES HEMODIALY 89633 NEPHROLOG [facility] 0 Y THO PROCEDURE ASSOCIATE W/ S PHYS/QHP EVALUATIO N SBSQ 49472 [facility]OLOG [facility] 0 Y THO CARE/DAY ASSOCIATE 15 S MINUTES HEMODIALY 48450 NEPHROLOG JENSEN [facility] 0 Y THO PROCEDURE ASSOCIATE W/ S PHYS/QHP EVALUATIO N SBSQ 30039 [facility]DAY ASSOCIATE 35 S MINUTES SBSQ 40034 [facility] Y [facility] CARE/DAY ASSOCIATE [address] PELVIS 41241 [facility] JAI W/O 0 [place]ICAL [place] [address] [facility] JAI ABDOMEN 0 MEDICAL RON W/[place] [address] [facility] MARCE HEAD/BRAI 0 MEDICAL BENNY N W/[place] [address] [facility] MAX[facility] MEDICAL MEDICAL CIAL W/O IMAGING IMAGING CONTRAST ASS ASS MATERIAL 3D 60195 [facility] MARCE RENDERING 0 MEDICAL BENNY IMAGING W/INTERP& ASS POSTPROC DIFF WORK STATION 3D 52225 [facility] JAI RENDERING 0 MEDICAL RON W/INTERP IMAGING & [place] [address] [facility] JAI HEAD/BRAI 0 MEDICAL RON N W/O IMAGING CONTRAST ASS MATERIAL RADIOLOGI 69496 [facility] MARCE C 0 MEDICAL BENNY EXAMINATI IMAGING ON KNEE 3 ASS VIEWS RADEX 00492 [facility] MARCE ANKLE 0 MEDICAL BENNY COMPLETE IMAGING MINIMUM 3 ASS VIEWS RADEX 24-200 46604 [facility] MARCE ELBOW 9 MEDICAL BENNY COMPLETE IMAGING MINIMUM 3 ASS VIEWS RADEX 1117-200 70891 [facility] [place] GAUT[facility] HAND 9 RADIOLOGY ANA MINIMUM 3 VIEWS RADEX 17-200 83942 [facility] [place] [facility] FOREARM 2 9 RADIOLOGY ANA VIEWS RADEX 17-200 71576 [facility] [place] [facility] WRIST 9 RADIOLOGY ANA COMPLETE MINIMUM 3 VIEWS Encounters Encounter Start End Date Code Location Performer Type Date CRITICAL ST. ACCESS 7 7 [facility] EULA OFFICE 21119 [facility] 7 7 [facility] VISIT 25 PHYSICIAN MINUTES S OFFICE 67094 [facility] 7 7 [facility] VISIT 15 PHYSICIAN MINUT[address] [facility] [facility] ACCESS 7 7 [facility]UL[facility] OFFICE [address] DAIGLE OUTPATIEN 7 7 [facility]LOE T VISIT [address] ACCESS 7 7 [facility] EULA OFFICE [address] [facility] WARREN OUTPATIEN 7 7 CHLOE T VISIT 15 PHYSICIAN MINUTES S OFFICE 45123 ROBERT ROBERT OUTPATIEN 6 6 T VISIT 25 MINUTES OFFICE 58118 KERRI LAMA OUTPATIEN 6 6 [facility] 10 TH DEPT MINUTES MICHELLE OFFICE 93259 NABIL RHODES OUTPATIEN 6 6 MD NATASHA, T VISIT PSC 15 MINUTES HOSPITAL [facility] - 6 6 [facility]EN [facility] - 6 6 [facility] OUTPATIEN [facility] OFFICE 02040 NABIL LYON OUTPATIEN 6 6 MD NATASHA, T VISIT PSC 15 MINUTES OFFICE 20884 [facility] NIKOLASLIWILIANEL OUTPATIEN 6 6 [facility] DANYELLE T VISIT ORTHOPAED 15 IC CTR MINUTES OFFICE 83782 [facility] HO[facility]IT[facility] OUTPATIEN 6 6 [facility] DANYELLE T NEW 30 ORTHOPAED MINUTES IC CTR CRITICAL [facility]. ACCESS 6 6 [facility] CRITICAL ST. ACCESS 6 6 [facility] EULA OFFICE 67360 NABIL RHODES OUTPATIEN 6 6 MD NATASHA, T VISIT PSC 15 MINUTES HOSPITAL [facility] - 6 6 [facility] OUTPATIEN INC T EMERGENCY [address] [facility] T VISIT LOW/MODER SEVERITY CRITICAL ST. ACCESS 5 5 [facility] MERA - 5 5 [facility] OUTPATIEN INC T OFFICE 00823 NABIL BUX ANJ OUTPATIEN 5 5 MD NATASHA, T VISIT PSC 10 MINUTES OFFICE 35437 CLARI BUX BUX ANJ OUTPATIEN 5 5 T NEW 30 MINUTES OFFICE 03478 HAR[facility] HASTINGS OUTPATIEN 5 5 E. [place]ARL[place] EUGENIA T VISIT MDPLC 10 MINUTES OFFICE 06910 HARME[facility] SINGLETON OUTPATIEN 5 5 E. HASTINGS MAT T VISIT MDPLC 10 MINUTES OFFICE 68582 HARME[facility] BLACKMON OUTPATIEN 5 5 E. HASTINGS NALLELY T VISIT MDPLC 10 MINUTES OFFICE 10656 HARMEET SINGLETON OUTPATIEN 4 4 E. DARLING MAT T VISIT MDPLC 10 MINUTES INITIAL 73055 EULA CO EULA CO PREVENTIV 4 4 [facility]ALTH [facility] E DEPT DEPT MEDICINE NEW PT AGE 18-39YRS OFFICE 10008 [place] HASTINGS OUTPATIEN 4 4 EUGENIA EUGENIA T VISIT 15 MINUTES HOSPITAL [facility] - 3 3 [facility] OUTPATIEN INC T CRITICAL ST. ACCESS 3 3 [facility] EMERGENCY 40141 BRITTANY SOTO 3 3 III DAYAN III DAYAN DEPARTMEN T VISIT MODERATE SEVERITY OFFICE 71302 [facility]ISON ALL RISON ALL OUTPATIEN 3 3 T VISIT 10 MINUTES OFFICE 66555 [facility] OUTPATIEN 3 3 T VISIT 10 MINUTES OFFICE 82612 NEYMRA BLACKMON OUTPATIEN 2 2 NALLELY NALLELY T NEW [address] NAMITA 2 2 [facility] VISIT MODERATE SEVERITY CRITICAL ST. ACCESS 2 2 [facility]ICAL ST[facility] ACCESS 2 2 [facility] E[facility] OFFICE 33203 BRIANA KAUR OUTPATIEN 2 2 T VISIT [address] BRACKEN 2 2 [facility] T VISIT MODERATE SEVERITY [facility] - 1 1 [facility] T OFFICE [id number] [facility] OUTPATIEN 1 1 [facility]E THO T VISIT CLINIC 15 PSC MINUTES OFFICE [id number] [facility] OUTPATIEN 1 1 [facility] [address] ACCESS 1 1 [facility] EMERGENCY [address] [facility] T VISIT LOW/MODER SEVERITY OFFICE 42744 NEPHROLOG EDIL OUTPATIEN 0 0 Y DAYAN T VISIT ASSOCIATE 15 S MINUTES
--- OUTSIDE RECORDS SUMMARY | 2016-09-16 07:04 | External Medical Summary Rpt ---
Author Author , Organization [employer] Address Unknown Phone Unavailable Care Team Providers Care Chemistry Technical Officer Name Role Phone NABIL KAUR MD, PSC, [...] [facility], Unavailable Unavailable [facility] [place] [facility], Unavailable Unavailable [facility] MARCE BENNY, Unavailable Unavailable MARCE BENNY DOERGER KIR, DOERGER Unavailable Unavailable KIR DUFF MEAGAN, DUFF MEAGAN Unavailable Unavailable [facility] Un[facility] Unavailable [place], [facility] SP[facility]ER EBACHER MAT, EBACHER [...] DANYELLE HARMEET HASTINGS Unavailable Unavailable [facility]PLCHARMEET [facility] Unavailable Unavailable IM[facility]ING [facility], [facility] ELISEO CRI, ELISEO CRI Unavailable Unavailable CLARI KAUR MD, CLARI Unavailable Unavailable NATASHA DAIGLE, DAIGLE Unavailable Unavailable JAI VELASQUEZ, JAI Unavailable Unavailable [facility] Unavailable [facility]available [facility], [facility] Unavailable Unavailable [facility], [facility] Unavailable Unavailable OF NOT, [facility] RISON ALL, RISON ALL Unavailable Unavailable SALIM DAINA, SALIM DAINA Unavailable Unavailable [facility], Unavailable Unavailable [facility], [facility]available [facility]available [facility] Unavailable Unavailable PHYSICIANS, [facility] . [place]NA EULA, Unavailable Unavailable [facility] EUL[facility] NATHANIEL SCO, NATHANIEL SCO Unavailable Unavailable [facility] Unavailable Unavailable DEPT MICHELLE, [facility] DEPT MICHELLE WEHRMAN III DAYAN, Unavailable Unavailable WEHRMAN III DAYAN WEHRMAN III DAYAN, Unavailable Unavailable WEHRMAN III DAYAN WILLOBY, WILLOBY Unavailable Unavailable WILLOBY NALLELY, WILLOBY Unavailable Unavailable NALLELY Purpose Continuity of Care Document - 04-04-2009 through 2016 Problems Code Diagnosis DOS Provider Status [id number] EPILEPSY 08-01-2016 [facility] NOT GABBY INTRACT W/O EULA STATUS EPILEPTICUS H539 UNSPECIFIED 08-01-2016 . VISUAL GABBY DISTURBANCE EULA R51 HEADACHE 08-01-2016 . GABBY EULA R5383 OTHER 07-25-2016 [facility] PHYSICIANS O04033 OTH 07-09-2016 MIGRAINE GABBY NOT INTRACT PHYSICIANS W/O STATUS MIGRAINOSUS M542 CERVICALGIA 07-09-2016 [facility] PHYSICIANS R110 NAUSEA 07-04-2016 [facility] PHYSICIANS C46284 EPISODIC 06-24-2016 TENSION-TYP GABBY E HEADACHE PHYSICIANS NOT INTRACTABLE L570 ACTINIC 03-19-2016 ROBERT KERATOSIS L732 HIDRADENITI 03-19-2016 ROBERT S SUPPURATIVA L930 DISCOID 03-19-2016 ROBERT LUPUS ERYTHEMATOS US Z202 CONTACT 02-08-2016 [facility] WITH DISTRICT EXPOSURE [facility] DEPT INFECT MICHELLE SEXUAL MODE TRANSMS V31270 SPONDYLOSIS 09-19-2015 NABIL KAUR, W/O , PSC MYELOPATH/R ADICULOPATH Y LUMB RGN M5116 INTERVERTEB 09-19-2015 YOLANDA LYON MD, PSC D/O W/RADICULOP ATHY LUMB RGN V81034 OTHER LONG 09-19-2015 [facility] CURRENT INC DRUG THERAPY E70963 OTHER 08-03-2015 [facility] PSC TENOSYNOVIT IS RIGHT SHOULDER M461 SACROILIITI 07-24-2015 Jaspal LYON MD, PSC ELSEWHERE CLASSIFIED M545 LOW BACK 07-24-2015 [facility] PAIN [facility] INC M791 MYALGIA 07-24-2015 NABIL KAUR MD, PSC M7581 OTHER 07-12-2015 [facility] SHOULDER H [facility]ES[facility] RIGHT CTR SHOULDER A63359 PAIN IN 06-14-2015 ST. RIGHT GABBY SHOULDER EULA [id number] UNS INJURY 06-02-2015 ST. 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 7244 THORACIC/ASHLEY 10-24-2014 CLARI KAUR MBOSACRAL NEURITIS/RA DICULITIS UNSPEC 65608 DISPLCMT 07-26-2014 HARMEET Morrison LUMBAR HASTINGS INTERVERT MDPLC DISC W/O MYELOPATHY 7213 LUMBOSACRAL 06-27-2014 HARMEET HASTINGS SPONDYLOSIS MDPLC WITHOUT MYELOPATHY 29896 MORBID 04-19-2014 HARMEET Morrison OBESITY HASTINGS MDPLC V5869 LONG-TERM 04-19-2014 HARMEET Morrison (CURRENT) DARLING USE OF MDPLC OTHER MEDICATIONS 7238 OTHER 01-21-2014 HARMEET Morrison SYNDROMES HASTINGS AFFECTING MDPLC CERVICAL REGION 2382 NEOPLASM OF 10-06-2013 [place] TRA UNCERTAIN BEHAVIOR OF SKIN V2502 GENERAL 08-17-2013 EULA CO [facility] INIT[facility]ATION [facility] CONTRACEPT MEASURES 7295 PAIN IN 04-19-2013 [facility] SOFT [facility] TISSUES OF INC LIMB 06852 SWELLING OF 04-19-2013 [facility] LIMB [facility] INC 9594 INJURY 04-19-2013 [facility] OTHER AND [facility] UNSPECIFIED INC HAND EXCEPT FINGER 41280 SPRAIN AND 03-22-2013 WEHRMAN III STRAIN OF DAYAN UNSPECIFIED SITE OF HAND 44051 CONTUSION 11-14-2011 ST. OF HAND GABBY EULA 13016 CONTUSION 11-14-2011 ST. OF WRIST GABBY EULA 78830 BLISTR 11-14-2011 ST W/EPID LOSS GABBY DUE BURN MED CTR UNSPEC SITE HAND 29175 BLISTERS 11-14-2011 ST. W/EPIDERMAL GABBY LOSS DUE EULA TO BURN RECEIVING TELLER 76764 BURN <10% 11-14-2011 ST. BODY SURF GABBY W/3RD DEG EULA BURN<10%/UN S AMT 9492 BLISTERS 11-14-2011 ST W/EPIDERMAL GABBY LOSS DUE MED CTR BURN UNSPEC SITE 9599 INJURY 11-14-2011 RAD[facility]OLOG[facility] OTHER AND ASSOCIATES UNSPECIFIED OF NOTH UNSPECIFIED SITE V065 NEED 11-14-2011 ST. PROPHYLACTI [place] C EULA VACCINATION W/[facility] 5990 URINARY 11-01-2011 WILLOBY NALLELY TRACT INFECTION SITE NOT SPECIFIED 6235 LEUKORRHEA 11-01-2011 WILLOBY NALLELY NOT SPECIFIED INFECTIVE 28820 SPONDYLOSIS 11-01-2011 WILLOBY NALLELY UNSPEC SITE W/O MENTION MYELOPATHY 496 CHRONIC 09-05-2011 WILLOBY NALLELY AIRWAY OBSTRUCTION NEC 31652 PAIN IN 07-16-2011 ST. JOINT, GABBY LOWER LEG EULA 7245 UNSPECIFIED 06-19-2011 [facility] NATASHA BACKACHE 9597 INJURY 06-19-2011 BRIANA KAUR OTHER&UNSPE CIFIED KNEE LEG ANKLE&FOOT 37402 CONTUSION 06-15-2011 ST OF KNEE GABBY MED CTR 7231 CERVICALGIA 05-30-2011 [facility]EN NATASHA 9154 FINGER 05-30-2011 [facility] NATASHA INSECT BITE NONVENOMOUS W/O MENTION INF 4739 UNSPECIFIED 04-22-2011 WILLOBY NALLELY SINUSITIS 490 BRONCHITIS 04-22-2011 WILLOBY NALLELY NOT SPECIFIED ACUTE OR CHRONIC 12545 CHRON 03-21-2011 [facility] TIS W/O LES INC RENL MEDULRY NECROS 54567 ACUT 03-21-2011 [facility] TIS W/O LES INC RENAL MEDULRY NECROS 86220 UNSPECIFIED 03-21-2011 [facility] TIS 5849 ACUTE 04-10-2010 [facility] FAILURE UNSPECIFIED 7880 RENAL COLIC 01-06-2010 [facility] 7840 HEADACHE 12-06-2009 [facility] 7804 DIZZINESS 09-30-2009 [place] [facility] GIDDINESS [facility] 56948 UNSPECIFIED 08-24-2009 [place] SITE OF MEDICAL ANKLE IMAGING ASS SPRAIN AND STRAIN 9239 CONTUSION 04-11-2009 [facility] UNSPECIFIED IMAGING ASS PART OF UPPER [...] DOS Code Location Performer Comment MRI BRAIN 09676 [facility] BRAIN 7 [facility] STEM W/O EULA EULA W/CONTRAS T MATERIAL INJ A[address] [facility] GADOBENAT 7 [facility] E EULA EUL[place] M[place] [address] [facility] ST. HEAD/BRAI 7 [facility] N W/O EULA EULA CONTRAST MATERIAL RADEX 09002 [facility] SPINE 7 [facility] CERVICAL EULA EULA 4 OR 5 VIEWS THERAPEUT 88493 DAIGLE IC 7 [facility] PROPHYLAC TIC/DX PHYSICIAN INJECTION S SUBQ/IM DESTRUCTI 39877 YESICA ROBERT ON 6 PREMALIGN ANT LESION 1ST SYPHILIS 53143 [facility] SALIM DAINA TEST 6 DISTRICT NON-TREPO [facility] DEPT NEMAL MICHELLE ANTIBODY QUAL [facility] 36488 [facility] SALIM DAINA NEISSERIA 6 DISTRICT [facility] DEPT GONORRHOE MICHELEL AE AMPLIFIED PROBE TQ [facility] 60174 [facility] SALIM DAINA CHLAMYDIA 6 [facility] DEPT TRACHOMAT MICHELLE IS AMPLIFIED PROBE [facility] G0463 [facility] OUTPATIEN 6 [facility] T CLIN INC INC VISIT ASSESS & MGMT PT DRUG TST G0477 [facility] PRESUMP;C 6 [facility] PBL BEING INC INC READ DC OPT OBV ONLY DRUG TEST G0481 [facility] DEFINITV [address] ID INC INC METH P DAY 8-14 DRUG CL THERAPEUT 84213 PROFESSIO CROSSFIEL IC PX 1/> 6 [facility] D POLO AREAS ASSOC EACH 15 PSC MIN EXERCISES E-STIM G0283 PROFESSIO CROSSFIEL 1/> AREAS 6 [facility] D POLO OTH THAN ASSOC WND CARE PSC PART TX PLAN THERAPEUT 35412 PROFESSIO CROSSFIEL IC PX 1/> 6 [facility] AREAS ASSOC EACH 15 PSC MIN EXERCISES E-STIM G0283 PROFESSIO CROSSFIEL 1/> AREAS 6 NAL REHAB D PLOO OTH THAN ASSOC WND CARE PSC PART TX PLAN E-STIM G0283 PROFESSIO CROSSFIEL 1/> AREAS 6 NAL REHAB D POLO OTH THAN ASSOC WND CARE PSC PART TX PLAN THERAPEUT 81976 PROFESSIO CROSSFIEL IC PX 1/> 6 [facility] D POLO AREAS ASSOC EACH 15 PSC MIN EXERCISES THERAPEUT 50557 PROFESSIO CROSSFIEL IC PX 1/> 6 [facility] D POLO AREAS ASSOC EACH 15 PSC MIN EXERCISES E-STIM G0283 PROFESSIO CROSSFIEL 1/> AREAS 6 [facility] REHAB D POLO OTH THAN ASSOC WND CARE PSC PART TX PLAN E-STIM G0283 PROFESSIO PROFESSIO 1/> AREAS 6 NAL REHAB NAL REHAB OTH THAN ASSOC ASSOC WND CARE PSC PSC PART TX PLAN THERAPEUT 50199 PROFESSIO PROFESSIO IC PX 1/> 6 [facility] REHAB NAL REHAB AREAS ASSOC ASSOC EACH 15 PSC PSC MIN EXERCISES THERAPEUT 83057 PROFESSIO CROSSFIEL IC PX 1/> 6 NAL [...] WND CARE PSC PART TX PLAN THERAPEUT 76222 PROFESSIO CROSSFIEL IC PX 1/> 6 NAL REHAB D OPLO AREAS ASSOC EACH 15 PSC MIN EXERCISES THERAPEUT 62202 PROFESSIO CROSSFIEL IC PX 1/> 6 [facility] REHAB D POLO AREAS ASSOC EACH 15 PSC MIN EXERCISES E-STIM G0283 PROFESSIO CROSSFIEL 1/> AREAS 6 NAL REHAB D POLO OTH THAN ASSOC WND CARE PSC PART TX PLAN THERAPEUT 41517 PROFESSIO CROSSFIEL IC PX 1/> 6 [facility] REHAB D POLO AREAS ASSOC EACH 15 PSC MIN EXERCISES E-STIM G0283 PROFESSIO CROSSFIEL 1/> AREAS 6 NAL REHAB D POLO OTH THAN ASSOC WND CARE PSC PART TX PLAN THERAPEUT 19190 PROFESSIO CROSSFIEL IC PX 1/> 6 NAL REHAB D POLO AREAS ASSOC EACH 15 PSC MIN EXERCISES E-STIM G0283 PROFESSIO CROSSFIEL 1/> AREAS 6 NAL REHAB D POLO OTH THAN ASSOC WND CARE PSC PART TX PLAN E-STIM G0283 PROFESSIO CROSSFIEL 1/> AREAS 6 NAL REHAB D POLO OTH THAN ASSOC WND CARE PSC PART TX PLAN THERAPEUT 31217 PROFESSIO CROSSFIEL IC PX 1/> 6 NAL REHAB D POLO AREAS ASSOC EACH 15 PSC MIN EXERCISES THERAPEUT 14154 PROFESSIO CROSSFIEL IC PX 1/> 6 NAL REHAB D POLO AREAS ASSOC EACH 15 PSC MIN EXERCISES E-STIM G0283 PROFESSIO CROSSFIEL 1/> AREAS 6 NAL REHAB D POLO OTH THAN ASSOC WND CARE PSC PART TX PLAN E-STIM G0283 PROFESSIO CROSSFIEL 1/> AREAS 6 NAL REHAB D POLO OTH THAN ASSOC WND CARE PSC PART TX PLAN THERAPEUT 56418 PROFESSIO PROFESSIO IC PX 1/> 6 NAL REHAB NAL REHAB AREAS ASSOC ASSOC EACH 15 PSC PSC MIN EXERCISES PHYSICAL 22181 PROFESSIO CROSSFIEL THERAPY 6 NAL REHAB D POLO EVALUATIO ASSOC N PSC THERAPEUT 09745 PROFESSIO CROSSFIEL IC PX 1/> 6 NAL REHAB D POLO AREAS ASSOC EACH 15 PSC MIN EXERCISES E-STIM G0283 PROFESSIO CROSSFIEL 1/> AREAS 6 NAL REHAB D POLO OTH THAN ASSOC WND CARE PSC PART TX PLAN RADEX [address] SHOULDER 6 [facility] COMPLETE EULA EULA MINIMUM 2 VIEWS [place] ANY 81766 RADIOLOGY NATHANIEL SCO JT UPPER 6 EXTREMITY ASSOCIATE W/O S OF NOTH [facility] G0463 [facility] T[facility] OUTPATIEN 6 [facility] T CLIN INC INC VISIT ASSESS & MGMT PT LOCM Q9966 [facility] 200-299 5 [facility] MG/ML INC INC IODINE CONCENTRA TION PER ML NJX 94604 NABIL ASIF MEAGAN DX/THER 5 MD NATASHA, SBST PSC EPIDURAL/ SUBARACH L[place]BAR/[place] IN[place] [address] MADAR BUX BUX ANJ JOINT 5 ARTHRGRP Y&/ANES/S TEROID W/DICK DRUG SCR G0434 HARMEET GA NOT 4 Prince HASTINGS CHROMATOG MDPLC MDPLC RAPHIC; ANY NUMBER PT ENC DRUG SCR G0434 HARMEET EBACHER NOT 4 Prince YUEN CHROMATOG MDPLC RAPHIC; ANY NUMBER PT ENC EXCISION 92344 ATKINS ATKINS MALIGNANT 4 TRA TRA LESION F/E/E/N/L 2.1-3.0 CM DRUG SCR G0434 DARL[place] VALIENTE 4 EUGENIA EUGENIA CHROMATOG RAPHIC; ANY NUMBER PT ENC MRI UPPER 36267 [facility]YE 3 [facility] EXTREMITY INC INC OTH THAN JT W/O CONTR MATRL RADEX [address] HAND 3 GABBY PIERRE MINIMUM 3 EULA EULA VIEWS LOC Q9967 D[facility]L[place] HASTINGS 300-399 2 EUGENIA EUGENIA MG/ML IODINE CONCENTRA TION PER ML DISKOGRAP 38137 [facility]STINGS Y LUMBAR 2 EUGENIA EUGENIA RS&I MODERATE 31243 [place] HASTINSG SEDATJ 2 EUGENIA EUGENIA SAME PHYS/QHP 5/>YRS INIT 30 MIN RINGERS J7120 [facility] HASTINGS LACTATE 2 EUGENIA EUGENIA INFUSION UP TO 1000 CC RINGERS J7120 [facility] HASTINGS LACTATE 2 EUGENIA EUGENIA INFUSION UP TO 1000 CC MODERATE 25646 DARLING HASTINGS SEDATJ 2 EUGENIA EUGENIA SAME PHYS/QHP 5/>YRS INIT 30 MIN DISKOGRAP 94140 DARLING HASTINGS Y LUMBAR 2 EUGENIA EUGENIA RS&I LOCM Q9967 [facility] HASTINGS 300-399 2 EUGENIA EUGENIA MG/ML IODINE CONCENTRA TION PER ML INJECTION 65810 [place] HASTINGS PX 2 EUGENIA EUGENIA DISCOGRAP HY EACH LEVEL LUMBAR LOCM Q9967 D[facility] HASTINGS 300-399 2 EUGENIA EUGENIA MG/ML IODINE CONCENTRA TION PER ML MODERATE 78082 [place] HASTINGS SEDATJ 2 EUGENIA EUGENIA SAME PHYS/QHP 5/>YRS INIT 30 MIN NJX 54651 [facility] HASTINGS ANES&/STR 2 EUGENIA EUGENIA D [...] EUGENIA METHYLPRE DNISOLONE ACETATE 40 [place] NJX 35422 HASTINGS HASTINGS ANES&/STR 2 EUGENIA EUGENIA D W/IMG TFRML EDRL LMBR/SAC EA LV RADEX [address] HAND 2 GABBY GABBY MINIMUM 3 EULA EULA VIEWS RADEX [address] WRIST 2 GABBY GABBY COMPLETE EULA EULA MINIMUM [address] V[address] PRQ ID 2 GABBY GABBY SUBQ/IM EULA EULA NJXS 1 VACCINE TETANUS & 92218 [facility] ST. 2 GABBY GABBY DIPHTHERI EULA EULA A TOXOIDS ADSORBED 7/>YR IM FLUOR 07770 RADI[facility] RADIOLOGY NEEDLE/CA 2 ASSOCIATE ASSOCIATE SPINE/PAR S OF [facility] S OF NOT ASPINAL DX/THER ADDON INJ J0702 RADIOLOGY DOERGER BETAMETHA 2 KIR SONE ASSOCIATE ACETATE & S OF [facility] PHOSPHATE 3 MG [place] [address] JT LOWER 2 GABBY GABBY EXTREM EULA EULA W/O CONTRAST MATRL MRI [address] SPINAL 2 GABBY GABBY CANAL EULA EULA LUMBAR W/O CONTRAST MATERIAL RADIOLOGI 21853 RADIOLOGY SARA Ralph EXAM 2 III SHALA KNEE ASSOCIATE COMPLETE S [place]H 4/[place] [address] [facility] GWINNETTC[facility] MARCE RETROPERI 1 MEDICAL BENNY TONEAL IMAGING REAL TIME ASS W/IMAGE COMPLETE URNLS DIP 18778 [facility] [place] JR THO STICK/TAB CLINIC LET RGNT PSC AUTO W/O MICROSCOP Y URNLS DIP 00001 [facility] [place] JR THO STICK/TAB CLINIC LET RGNT PSC AUTO W/O MICROSCOP Y COLLECTIO 90316 [facility] N VENOUS [facility] VENIP[facility] PSC URE SBSQ 02973 [facility] 0 Y THO CARE/DAY ASSOCIATE 35 S MINUTES SBSQ 48192 NE[facility]OLOG [facility] 0 Y THO CARE/DAY ASSOCIATE 35 S MINUTES SBSQ 60219 [facility] 0 Y THO CARE/DAY ASSOCIATE 15 S MINUTES SBSQ 17526 [facility] 0 Y THO CARE/DAY ASSOCIATE 25 S MINUTES SBSQ 51065 [facility] 0 Y THO CARE/DAY ASSOCIATE 15 S MINUTES SBSQ 06685 [facility] 0 Y THO CARE/DAY ASSOCIATE 25 S MINUTES SBSQ 44795 [facility] 0 Y THO CARE/DAY ASSOCIATE 25 S MINUTES HEMODIALY 50074 NEPHROLOG JENSEN SIS 0 Y THO PROCEDURE ASSOCIATE W/ S PHYS/QHP EVALUATIO N SBSQ 05324 [facility] 0 Y THO CARE/DAY ASSOCIATE 15 S MINUTES HEMODIALY 37702 NEPHROLOG JENSEN SIS 0 Y THO PROCEDURE ASSOCIATE W/ S PHYS/QHP EVALUATIO N SBSQ 65421 [facility] 0 Y THO CARE/DAY ASSOCIATE 35 S MINUTES SBSQ 73474 [facility] 0 Y THO CARE/DAY ASSOCIATE [address] PELVIS 91046 [place] JAI W/O 0 [place]ICAL [place] [address] [place] JAI ABDOMEN 0 MEDICAL RON W/[place] [address] [place] MARCE HEAD/BRAI 0 MEDICAL BENNY N W/[place] [address] [facility] MEDICAL MEDICAL CIAL W/O IMAGING IMAGING CONTRAST ASS ASS MATERIAL 3D 30794 [place] MARCE RENDERING 0 MEDICAL BENNY IMAGING W/INTERP& ASS POSTPROC DIFF WORK STATION 3D 78024 [place] JAI RENDERING 0 MEDICAL RON W/INTERP IMAGING & [place] [address] [place] JAI HEAD/BRAI 0 MEDICAL RON N W/O IMAGING CONTRAST ASS MATERIAL RADIOLOGI 13953 [place] MARCE C 0 MEDICAL BENNY EXAMINATI IMAGING ON KNEE 3 ASS VIEWS RADEX 83271 [place] MARCE ANKLE 0 MEDICAL BENNY COMPLETE IMAGING MINIMUM 3 ASS VIEWS RADEX 24-200 67662 [place] MARCE ELBOW 9 MEDICAL BENNY COMPLETE IMAGING MINIMUM 3 ASS VIEWS RADEX 1117-200 23960 [facility] [place] [facility] HAND 9 RADIOLOGY ANA MINIMUM 3 VIEWS RADEX 17-200 50054 [facility] [place] FOREARM 2 9 RADIOLOGY ANA VIEWS RADEX 17-200 75314 [facility] [place] WRIST 9 RADIOLOGY ANA COMPLETE MINIMUM 3 VIEWS Encounters Encounter Start End Date Code Location Performer Type Date CRITICAL ST. ACCESS 7 7 [facility] EULA OFFICE 27256 [facility] 7 7 [facility] VISIT 25 PHYSICIAN MINUTES S OFFICE 58354 [facility] 7 7 [facility] VISIT [address] ACCESS 7 7 [facility] EULA OFFICE [address] DAIGLE OUTPATIEN 7 7 [facility] T VISIT [address] ACCESS 7 7 [facility] EULA OFFICE [address] [facility] WARREN OUTPATIEN 7 7 [facility] T VISIT 15 PHYSICIAN MINUTES S OFFICE 38409 ROBERT ROBERT OUTPATIEN 6 6 T VISIT 25 MINUTES OFFICE 59174 [facility] OUTPATIEN 6 6 [facility] T [facility] 10 TH DEPT MINUTES MICHELLE OFFICE 04940 NABIL RHODES OUTPATIEN 6 6 MD NATASHA, T VISIT PSC 15 MINUTES HOSPITAL [facility] - 6 6 [facility]EN [facility] - 6 6 [facility]PATIEN [facility] OFFICE 21111 NABIL LYON OUTPATIEN 6 6 MD NATASHA, T VISIT PSC 15 MINUTES OFFICE 36694 [facility] NIKOLASLIWILIANEL OUTPATIEN 6 6 [facility] DANYELLE T VISIT ORTHOPAED 15 IC CTR MINUTES OFFICE 09109 [facility] HOBLITZEL OUTPATIEN 6 6 [facility] DANYELLE T NEW 30 ORTHOPAED MINUTES IC CTR CRITICAL [facility]. ACCESS 6 [address] [facility] CR[facility]ICAL [facility] ACCESS 6 6 [facility] EULA OFFICE 08753 NABIL RHODES OUTPATIEN 6 6 MD NATASHA, T VISIT PSC 15 MINUTES HOSPITAL [facility] - 6 6 [facility] OUTPATIEN INC T EMERGENCY [address]273 ST. 5 5 [facility] T VISIT LOW/MODER SEVERITY CRITICAL ST. ACCESS 5 5 [facility] MERA - 5 5 [facility] OUTPATIEN INC T OFFICE 03957 NABIL BUX ANJ OUTPATIEN 5 5 MD NATASHA, T VISIT PSC 10 MINUTES OFFICE 45142 CLARI BUX BUX ANJ OUTPATIEN 5 5 T NEW 30 MINUTES OFFICE 06122 HAR[facility] HASTINGS OUTPATIEN 5 5 E. [place]ARL[place] EUGENIA T VISIT MDPLC 10 MINUTES OFFICE 94537 HARMEET SINGLETON OUTPATIEN 5 5 E. HASTINGS MAT T VISIT MDPLC 10 MINUTES OFFICE 32908 HARMEET BLACKMON OUTPATIEN 5 5 E. HASTINGS NALLELY T VISIT MDPLC 10 MINUTES OFFICE 77225 HARMEET SINGLETON OUTPATIEN 4 4 E. DARLING MAT T VISIT MDPLC 10 MINUTES INITIAL 24024 EULA CO EULA CO PREVENTIV 4 4 [facility] E DEPT DEPT MEDICINE NEW PT AGE 18-39YRS OFFICE 76689 [place] HASTINGS OUTPATIEN 4 4 EUGENIA EUGENIA T VISIT 15 MINUTES HOSPITAL [facility] - 3 3 [facility] OUTPATIEN INC T CRITICAL ST. ACCESS 3 3 [facility] EMERGENCY 72377 BRITTANY SOTO 3 3 III DAYAN III DAYAN DEPARTMEN T VISIT MODERATE SEVERITY OFFICE 32859 [facility] RISON ALL OUTPATIEN 3 3 T VISIT 10 MINUTES OFFICE 68948 [facility] OUTPATIEN 3 3 T VISIT 10 MINUTES OFFICE 39842 NEYMAR BLACKMON OUTPATIEN 2 2 NALLELY NALLELY T NEW [address] NAMITA 2 2 [facility] T VISIT MODERATE SEVERITY [facility]ITICAL [facility] ACCESS 2 [address] [facility] ACCESS 2 2 [facility] OFFICE 30270 BRIANA KAUR OUTPATIEN 2 2 T VISIT [address] [facility] 2 2 [facility] T VISIT MODERATE SEVERITY [facility] - 1 1 [facility] T OFFICE 98294 [facility] OUTPATIEN 1 1 [facility]E THO T VISIT CLINIC 15 PSC MINUTES OFFICE 02005 [facility] OUTPATIEN 1 1 [facility] [address] ACCESS 1 1 [facility] EMERGENCY [address] 1 1 [facility] T VISIT LOW/MODER SEVERITY OFFICE 71211 NEPHROLOG EDIL OUTPATIEN 0 0 Y DAYAN T VISIT ASSOCIATE 15 S MINUTES
--- OUTSIDE RECORDS SUMMARY | 2016-09-16 07:05 | External Medical Summary Rpt ---
[...] Thyrotr 1.170 0.270 - mcIU/mL No No Jul 9 opin 4.200 informa informa 2017 [Units/ [...] Neut# 6.5 1.8 - x10(3)/ No No Jul 9 7.7 mcL informa informa 2017 tion in tion in 3:16 PM source source data data Lymph# 3.8 0.6 - x10(3)/ No No Jul 9 4.8 mcL informa informa 2017 tion in tion in 3:16 PM source source data data Carolina# 0.8 0.0 - x10(3)/ No No Jul 9 1.3 mcL informa informa 2017 tion in tion in 3:16 PM source source data data Eos# 0.1 0.0 - x10(3)/ No No Mar 9 0.5 mcL informa informa 2016 tion in tion in 3:16 PM source source data data Baso# 0.1 0.0 - x10(3)/ No Jul 9 0.2 mcL informa informa 2016 tion in tion in 3:16 PM source source data data CBC Observa Value Referen Units Interpr Notes Date tion ce etation Range LEUKOCY 11.3 4.0 - x10(3)/ High No Jul 9 GUILLAUME 11.0 mcL inform2016 tion in 3:16 PM source data Erythro [...] Platele 413 144 - x10(3)/ No Jul 25 ts 423 mcL informa informa 2016 [#/volu [...] ETHNICI WHITE, No No No No Sep TY NON-HIS informa informa informa informa 2016 PANIC tion in tion in tion in tion in 3:00 PM source source source source data data data data KIT 12-31-2 No No No No Sep EXPIRAT 016 informa informa informa informa 2016 [...] data CHART N/A No No No No Feb 07 NUMBER informa informa informa informa 2016 tion [...] MAY HAVE ADVERSE PSYCHO- SOCIAL IMPACT, [facility] RET[facility] NG.\.br \This report contain [...] tion that must be protect ed in [place] nce with the Health Ins[facility] ce [place] [...] Trepone Pending No No No \.br\ Sep 22 ma informa informa informa is 2016 pallidu tion in tion in tion in report 3:00 PM m IgG source source source contain Ab data data data s [Presen patient ce] in Serum informa by tion Immunoa that ssay must be protect ed [...] Range HPV Thin No No No TEST Aug 9 Specime Prep informa informa informa INFORMA 2013 n tion in tion in tion in [...] signal assay by shonda Mullinsat ed by [facility] Laborat ory in conjunc tion with Dazo Audra. HPV Negativ No No No No [...] Apr 09 LEFT informa informa informa informa 2013 PA tion in tion in tion in [...] PM BATTERY views, source source source source 1901, data data data data oct 28, [id number] Trauma, no priorsN ormalIM PRESSIO N:Ellen lMarks
--- OUTSIDE RECORDS SUMMARY | 2016-09-16 07:05 | External Medical Summary Rpt ---
Demographics Preferred Language Iraqi Marital Status Unknown Caodaism Affiliation Unknown Race Unknown Ethnic Group Unknown Author Author , Organization [employer] Address Unknown Phone Unavailable Purpose Continuity of Care Document - through 2016 Immunization No patient found.
--- OUTSIDE RECORDS SUMMARY | 2016-09-16 07:05 | External Medical Summary Rpt ---
Demographics Preferred Language Pan[place]ian Marital Status Unknown Adventist Affiliation Unknown Race Unknown Ethnic Group Unknown Author Author , Organization [employer] Address Unknown Phone Unavailable Purpose Continuity of Care Document - through 2016 Immunization No patient found.
--- OUTSIDE RECORDS SUMMARY | 2016-09-16 07:05 | External Medical Summary Rpt ---
[...] in 3:16 PM source source data data [facility] 0.8 0.0 - x10(3)/ No No Jul [...] MAY HAVE ADVERSE PSYCHO- SOCIAL IMPACT, [facility] NG.\.br \This report contain s [...] tion that must be protect ed [place] with the Health [facility] ce [place] [...] by shonda Mullinsat ed by [facility] are Laborat ory in conjunc tion with Liztic Audra. HPV Negativ No No No No [...] 1901, data data data data oct 28, [id number] Trauma, no priorsN ormalIM PRESSIO N:Ellen lMarks
== END 2016-09-15 19:09 | disposition home or self-care (01) ==
LOC: ER 15:52
PROVIDERS: General Practice
DX: R19.7 Diarrhea, unspecified (principal); Z72.0 Tobacco use
CPT/HCPCS: J2405